=== PATIENT | male | born 1955 | race Caucasian/White ===

== ENCOUNTER 2021-01-29 11:23 | Emergency (ER) | payer MEDICAID, SELFPAY ==
--- NOTE | ~2021-01-29 | CT_ITS ---
EXAMINATION: CT CERVICAL SPINE, CT CHEST, ABDOMEN AND PELVIS WITHOUT CONTRAST. CLINICAL INFORMATION: Confused, fall. COMPARISON: None TECHNIQUE: Axial 3 mm thin and reformatted 2 mm thin sagittal and coronal images of cervical spine were obtained. DLP: 633 mGy-cm. Subsequently axial 5 mm thin and reformatted 3 mm thin sagittal and coronal images of chest, abdomen and pelvis were obtained without contrast. DLP: 2220 mGy-cm. FINDINGS: CERVICAL SPINE: On sagittal reconstructed images there is mild straightening of cervical lordosis. The vertebral heights, alignment and disc heights are normal. The craniovertebral junction and the C1-C2 alignment is normal. There is no visible acute fracture, dislocation or subluxation. The prevertebral and the paravertebral soft tissues are normal. Visualized thyroid lobes, submandibular glands are unremarkable. The prevertebral and paravertebral soft tissues are normal. CHEST: The lungs are well expanded and clear of acute pneumonic process. There is minimal left lower lobe subpleural thickening. The thyroid lobes are symmetrical and normal. The central trachea and the bronchi are widely clear. The heart size and the great vessels are normal caliber. There are coronary artery calcifications present. No pericardial effusion seen. No abnormal mediastinal lymph nodes or mass. There is no pleural effusion or thickening. The axilla and the chest wall are unremarkable. Bone windows reveal no calvarial abnormality. There is mild spondylosis dorsal spine. ABDOMEN AND PELVIS: The liver is normal size density and contour. No focal lesion or intrahepatic ductal dilatation seen. There is minimal dependent gallstones. No wall thickening noted. Visualized spleen, pancreas and bilateral adrenal glands are unremarkable. Both kidneys are normal size, shape and position without radiopaque renal calculi or hydronephrosis. There is no retroperitoneal mass or lymphadenopathy seen. No evidence of hematoma. The abdominal wall appears unremarkable. Scattered stool and gas are seen throughout the entire colon without significant distention. Imaging through the pelvis reveals normal prostate gland. The urinary bladder is nondistended. Bone windows reveal no lytic or sclerotic process. There is mild superior endplate deformity L1 vertebra suspicious of an acute fracture. CT/CT cervical spine wo con IMPRESSION: No acute fracture or dislocation cervical spine. No acute process seen in the chest, abdomen or pelvis. No thoracic rib fracture visualized. There is no pleural effusion or pneumothorax. Suspect acute L1 superior endplate compression fracture. If patient has pain in this region further evaluation with MRI or bone scan can be performed and if positive. With kyphoplasty.
--- NOTE | ~2021-01-29 | CT_ITS ---
EXAMINATION: CT HEAD WITHOUT CONTRAST CLINICAL INFORMATION: Fall, trauma, pain COMPARISON: None TECHNIQUE: Contiguous axial imaging was performed from the skull base to vertex without intravenous administration of contrast. Additional 2-D coronal and sagittal reformatted images are generated on the CT workstation and uploaded to PACS. This CT examination was performed using dose optimization techniques as appropriate, variously including the following: *Automated exposure control *Adjustment of mA and/or kV according to patient size (this includes techniques or standardized protocols for targeted exams where dose is matched to indication/reason for exam; i.e. extremities or head) *Use of iterative reconstruction technique DLP: 785 mGy-cm FINDINGS: There is no intracranial hemorrhage, hematoma, or extra-axial fluid collection. The ventricles are normal in size. There is no hydrocephalus, edema, or mass effect. There is mild nonfocal atrophic changes with prominence of the cortical sulci and fissures cisterns. There is no visible acute territorial infarct or mass lesion. The calvarium appears intact. There is no pneumocephalus or orbital emphysema. The visualized sinuses and middle ears and mastoid air cells show no significant mucosal thickening. There are no air-fluid levels. CT/CT head/brain wo con IMPRESSION: No acute intracranial abnormality.
[2021-01-29 11:47] VITALS: BP 118/68; BP 128/76; PULSE 103; PULSE 86; RESP 18; TEMP 37.1; O2SAT 95; BMI 38.0
--- NOTE | 2021-01-29 12:08 | ECG_ITS ---
Test Reason : FALL Blood Pressure : / mmHG Vent. Rate : 090 BPM Atrial Rate : 090 BPM P-R Int : 162 ms QRS Dur : 084 ms QT Int : 362 ms P-R-T Axes : 054 075 060 degrees QTc Int : 442 ms Normal sinus rhythm Normal ECG No previous ECGs available Referred By: Trent Pacheco Electronically Signed By:MIKY CRESPO MD
--- NOTE | 2021-01-29 12:42 | ED_ITS ---
HPI - General Adult General Chief complaint: Fall Stated complaint: FALL W/R HIP PAIN FROM [facility] Time Seen by Provider: 01/29/21 14:45 Source: patient Mode of arrival: ambulatory Limitations: no limitations History of Present Illness HPI narrative: Patient presents to ED for fall and right hip pain. Patient was given medications at 09:00 o'clock in the bed. And then after 10:00 they found patient back face in the bed and patient is sitting on the ground. EMS report states patient has been more confused the past 2 days. Patient does not ambulate. Patient states he was trying to walk which cause in to slide down to the ground. Patient is O2 dependent. Patient at baseline does not ambulate. Related Data Previous Rx's Medication Instructions Recorded naproxen 500 mg PO BID PRN #20 tab 01/29/21 Allergies Allergy/AdvReac Type Severity Reaction Status Date / Time Penicillins [PCN] Allergy Unknown Verified 01/29/21 11:55 Review of Systems Review of Systems: Yes all other systems are reviewed and are negative Constitutional: Constitutional: Reports as per HPI and Reports no additional constitutional complaints Eyes: Eyes: Reports as per HPI and Reports no additional eye complaints ENT: Reports system reviewed and no additional complaints, except as documented and Reports as per HPI Cardiovascular: Cardiovascular: Reports as per HPI and Reports no additional cardiovascular complaints Respiratory: Respiratory: Reports as per HPI and Reports no additional respiratory complaints Gastrointestinal: Gastrointestinal: Reports as per HPI and Reports no additional gastrointestinal complaints Genitourinary: Genitourinary: Reports no additional male genitourinary complaints and Reports as per HPI Musculoskeletal: Musculoskeletal: Reports no additional musculoskeletal complaints and Reports as per HPI Comments: Right hip pain Neurologic: Reports system reviewed and no additional complaints, except as documented and Reports as per HPI Comments: More confused the past 2 days [facility] Past Medical History Medical History (Updated 01/29/21 @ 19:02 by KOLE Beckwith) Alcohol dependence in remission Anemia Antisocial personality disorder Blind right eye Cataract, right eye CHF (congestive heart failure) Cocaine abuse in remission COPD (chronic obstructive pulmonary disease) GERD (gastroesophageal reflux disease) HTN (hypertension) Hyperlipidemia Psoriasis Pulmonary fibrosis Vitamin D deficiency Social History Social History Advance Directives: Yes Advance Directives Information Provided: No Advance Directives on File: No Physical Exam Vital Signs: Vital Signs: Last Vital Signs Temp 98.0 F 06/10/21 20:01 Pulse 80 01/29/21 20:01 Resp 17 01/29/21 20:01 BP 105/75 01/29/21 20:01 Pulse Ox 98 01/29/21 20:01 Oxygen Flow Rate 2 01/29/21 11:47 Body Mass Index 38.0 Const: General: cooperative, healthy appearing, comfortable, no acute distress, well developed, alert and awake Orientation/consciousness: patient oriented x3 HENMT: Head: Yes normal to inspection, Yes No palpable skull fracture present, Yes normocephalic, Yes atraumatic, No abrasion, No Acrocyanosis present, No Alston's sign, No contusion, No cranial bruits, No hematoma, No laceration, No occipital foramen tenderness, No palpable skull fracture, No raccoon eyes, No scalp lesion, No scalp tenderness, No Temporal artery tenderness present and No periorbital ecchymosis Eyes: General: appearance normal, both eyes and all related structures Neck: Neck: Yes normal visual inspection, Yes full ROM, Yes no lymphadenopathy, Yes no meningeal signs, Yes trachea midline, Yes supple and No tender Chest: Chest palpation & inspection: normal inspection of the chest and normal palpation of entire chest wall Resp: Effort & Inspection: normal respiratory effort and able to speak in complete sentences Auscultation: clear to auscultation bilaterally Cardio: Jugular venous distension: no JVD Heart sounds: S1 normal heart sound present and S2 normal heart sound present GI: Inspection: Yes normal to inspection and No abdominal wall ecchymosis Palpation (GI): Soft to palpation, not firm, nontender, no guarding and not rigid : General: No CVA tenderness and Yes no CVA tenderness Back/Spine/Pelvis: Back: no CVA tenderness, No CVA tenderness and No back tenderness Skin: General skin exam: no rashes or lesions noted and elasticity normal Neuro: Other: Patient is alert oriented x3. Patient removed his extremities. General: patient oriented x3, no meningeal signs and CN's II-XI intact bilaterally Cranial nerves: Yes CN's II-XII intact bilaterally Extrem: Other: Positive for right hip tenderness negative for internal/external rotation General: Yes normal to inspection and Yes full ROM Course Course Course Narrative: Patient have medical workup and imaging to rule out any fractures. Reevaluation(s) Reevaluation #1: Patient is not confused or altered. Patient is alert oriented x3. First troponin is negative. EKG negative for STEMI. Patient's elevated white blood cell count, but UA is normal. Vital signs are stable. Awaiting for imaging results to make sure there is no bleed fracture or any source of infection. Reevaluation #2: Head CT came back normal. Chest CT negative for any pneumonia. Cervical spine normal. Abdominal CT scan shows L1 compression fracture. Awaiting for repeat troponin and ammonia levels. Reevaluation #3: Troponin ammonia levels normal. Patient is sleeping in bed comfortably. Will send back to facility. No intervention needed for compression fracture. Medical Decision Making MDM Narrative Medical decision making narrative: Lumbar compression fracture Lab Data Result diagrams: 01/29/21 12:54 01/29/21 14:00 Labs: Lab Results 01/29/21 01/29/21 01/29/21 Range/Units 12:54 12:54 12:54 WBC 15.0 H (4.8-10.8) X10*3/uL RBC 5.46 (4.60-5.80) X10*6/uL Hgb 13.8 L (14.0-18.0) g/dl Hct 43.9 (42-52) % MCV 80.4 (80-98) fL MCH 25.3 L (27.0-33.0) pg MCHC 31.4 (31.0-36.0) g/dl RDW 15.3 (11.0-16.0) % Plt Count 262 (160-400) X10*3/uL MPV 10.7 (9.4-12.4) fL Immature Gran % (Auto) 0.7 H (0.0-0.4) % Neut % (Auto) 68.2 (45-73) % Lymph % (Auto) 16.1 L (20-40) % Stewart % (Auto) 13.8 H (2-11) % Eos % (Auto) 0.9 (0-4) % Baso % (Auto) 0.3 (0-2) % Lymph # (Auto) 2.4 (1.2-4.9) X10*3/uL Stewart # (Auto) 2.1 H (0.1-1.2) X10*3/uL Eos # (Auto) 0.1 (0.0-0.4) X10*3/uL Baso # (Auto) 0.1 (0.0-0.2) X10*3/uL Abs Immat Gran (auto) 0.10 H (0.00-0.03) X10*3/uL Absolute Neuts (auto) 10.3 H (2.0-8.3) X10*3/uL Absolute Nucleated RBC 0.000 (0.0-0.012) X10*3/uL Nucleated RBC % (auto) 0.0 (0.0-0.2) /100WBC Smear Tech's Comments VERIFIED PT 14.0 H (10.8-13.0) SEC INR 1.2 H (0.9-1.1) APTT 31.3 (24.1-38.0) SEC Sodium (135-145) mmol/L Potassium (3.3-5.1) mmol/L Chloride (96-108) mmol/L Carbon Dioxide (22-29) mmol/L Anion Gap (12-20) BUN (9-16) mg/dL Creatinine (0.5-1.4) mg/dL Estim Creat Clear Calc Estimated GFR Random Glucose (60-115) mg/dL Calcium (8.4-10.2) mg/dL Total Bilirubin (0.0-1.0) mg/dL AST (5-37) U/L ALT (0-40) U/L Alkaline Phosphatase (39-117) U/L Ammonia (13-55) umol/L Total Creatine Kinase (38-174) U/L Troponin I High Sens 11.4 (<3.5-35.0) ng/L Total Protein (6.5-8.0) g/dL Albumin (3.5-5.0) g/dL Urine Color Urine Appearance Urine pH (5.0-8.0) Ur Specific Boaz (1.005-1.025) Urine Protein (NEG-TRACE) MG/DL Urine Glucose (UA) (NEG) MG/DL Urine Ketones (NEG) MG/DL Urine Blood (NEG) Urine Nitrite (NEG) Ur Leukocyte Esterase (NEG) Urine RBC (0) /HPF Urine WBC (0-4) /HPF Ur Squamous Epith Cells /LPF Urine Bacteria /LPF Urine Mucus /LPF 01/29/21 01/29/21 01/29/21 Range/Units 14:00 14:00 17:01 WBC (4.8-10.8) X10*3/uL RBC (4.60-5.80) X10*6/uL Hgb (14.0-18.0) g/dl Hct (42-52) % MCV (80-98) fL MCH (27.0-33.0) pg MCHC (31.0-36.0) g/dl RDW (11.0-16.0) % Plt Count (160-400) X10*3/uL MPV (9.4-12.4) fL Immature Gran % (Auto) (0.0-0.4) % Neut % (Auto) (45-73) % Lymph % (Auto) (20-40) % Stewart % (Auto) (2-11) % Eos % (Auto) (0-4) % Baso % (Auto) (0-2) % Lymph # (Auto) (1.2-4.9) X10*3/uL Stewart # (Auto) (0.1-1.2) X10*3/uL Eos # (Auto) (0.0-0.4) X10*3/uL Baso # (Auto) (0.0-0.2) X10*3/uL Abs Immat Gran (auto) (0.00-0.03) X10*3/uL Absolute Neuts (auto) (2.0-8.3) X10*3/uL Absolute Nucleated RBC (0.0-0.012) X10*3/uL Nucleated RBC % (auto) (0.0-0.2) /100WBC Smear Tech's Comments PT (10.8-13.0) SEC INR (0.9-1.1) APTT (24.1-38.0) SEC Sodium 143 (135-145) mmol/L Potassium 3.8 (3.3-5.1) mmol/L Chloride 112 H (96-108) mmol/L Carbon Dioxide 22 (22-29) mmol/L Anion Gap 13 (12-20) BUN 22 H (9-16) mg/dL Creatinine 0.59 (0.5-1.4) mg/dL Estim Creat Clear Calc 137.3 Estimated GFR > 60 Random Glucose 80 (60-115) mg/dL Calcium 7.5 L (8.4-10.2) mg/dL Total Bilirubin 0.2 (0.0-1.0) mg/dL AST 29 (5-37) U/L ALT 6 (0-40) U/L Alkaline Phosphatase 52 (39-117) U/L Ammonia 51 (13-55) umol/L Total Creatine Kinase 510 H (38-174) U/L Troponin I High Sens (<3.5-35.0) ng/L Total Protein 5.6 L (6.5-8.0) g/dL Albumin 2.5 L (3.5-5.0) g/dL Urine Color YELLOW Urine Appearance CLEAR Urine pH 7.0 (5.0-8.0) Ur Specific Boaz 1.020 (1.005-1.025) Urine Protein 2+ H (NEG-TRACE) MG/DL Urine Glucose (UA) NEG (NEG) MG/DL Urine Ketones 15 (NEG) MG/DL Urine Blood NEG (NEG) Urine Nitrite NEG (NEG) Ur Leukocyte Esterase NEG (NEG) Urine RBC 0-2 (0) /HPF Urine WBC 0-2 (0-4) /HPF Ur Squamous Epith Cells TRACE /LPF Urine Bacteria NONE /LPF Urine Mucus 1+ /LPF 01/29/21 Range/Units 17:01 WBC (4.8-10.8) X10*3/uL RBC (4.60-5.80) X10*6/uL Hgb (14.0-18.0) g/dl Hct (42-52) % MCV (80-98) fL MCH (27.0-33.0) pg MCHC (31.0-36.0) g/dl RDW (11.0-16.0) % Plt Count (160-400) X10*3/uL MPV (9.4-12.4) fL Immature Gran % (Auto) (0.0-0.4) % Neut % (Auto) (45-73) % Lymph % (Auto) (20-40) % Stewart % (Auto) (2-11) % Eos % (Auto) (0-4) % Baso % (Auto) (0-2) % Lymph # (Auto) (1.2-4.9) X10*3/uL Stewart # (Auto) (0.1-1.2) X10*3/uL Eos # (Auto) (0.0-0.4) X10*3/uL Baso # (Auto) (0.0-0.2) X10*3/uL Abs Immat Gran (auto) (0.00-0.03) X10*3/uL Absolute Neuts (auto) (2.0-8.3) X10*3/uL Absolute Nucleated RBC (0.0-0.012) X10*3/uL Nucleated RBC % (auto) (0.0-0.2) /100WBC Smear Tech's Comments PT (10.8-13.0) SEC INR (0.9-1.1) APTT (24.1-38.0) SEC Sodium (135-145) mmol/L Potassium (3.3-5.1) mmol/L Chloride (96-108) mmol/L Carbon Dioxide (22-29) mmol/L Anion Gap (12-20) BUN (9-16) mg/dL Creatinine (0.5-1.4) mg/dL Estim Creat Clear Calc Estimated GFR Random Glucose (60-115) mg/dL Calcium (8.4-10.2) mg/dL Total Bilirubin (0.0-1.0) mg/dL AST (5-37) U/L ALT (0-40) U/L Alkaline Phosphatase (39-117) U/L Ammonia (13-55) umol/L Total Creatine Kinase (38-174) U/L Troponin I High Sens 13.3 (<3.5-35.0) ng/L Total Protein (6.5-8.0) g/dL Albumin (3.5-5.0) g/dL Urine Color Urine Appearance Urine pH (5.0-8.0) Ur Specific Boaz (1.005-1.025) Urine Protein (NEG-TRACE) MG/DL Urine Glucose (UA) (NEG) MG/DL Urine Ketones (NEG) MG/DL Urine Blood (NEG) Urine Nitrite (NEG) Ur Leukocyte Esterase (NEG) Urine RBC (0) /HPF Urine WBC (0-4) /HPF Ur Squamous Epith Cells /LPF Urine Bacteria /LPF Urine Mucus /LPF ECG Data Interpretation: . Normal EKG. Ventricular rate 90. Pr interval 162. QRS 84. QTC 442. Negative STEMI Discharge Plan Discharge Clinical Impression: Closed compression fracture of lumbar vertebra Patient Disposition: Home, Self-Care Instructions: Vertebral Compression Fracture (ED) Additional Instructions: Return to the ED for worsening back pain, altered mental status, dizziness, nausea, vomiting, chest pain, shortness of breath, dysuria, hematuria, or any other concerning symptoms. Head CT, chest CT, cervical spine CT came back normal. Troponins were negative. EKG negative for STEMI. Urinalysis was normal. Abdominal CT scan shows L1 vertebral compression fracture. Prescriptions: New naproxen 500 mg tablet 500 mg PO BID PRN (Reason: pain) Qty: 20 RF: 0 Referrals: Erinn Keane MD [Primary Care Provider] - 2 days (L1 compression vertebral fracture) Print Language: [place] Zeal[place]
--- NOTE | 2021-01-29 12:55 | PC.NURSE ---
Pt alert, oriented to person. BUE weakness at baseline. Pt found on floor with back to bed at [facility]. Fall was unwitnessed. Pt states he was trying to walk, he states he does not know if he is able to walk. Per report from [facility] Pt more confused than baseline. IV line established, labs obtained. Pt denies pain at this time, no apparent distress, pt resting quietly.
[2021-01-29 12:59] LABS: Basophils Absolute Auto 0.1 X10*3/uL (0.0-0.2); Basophils Percent Auto 0.3 % (0-2); Eosinophils Absolute Auto 0.1 X10*3/uL (0.0-0.4); Eosinophils Percent Auto 0.9 % (0-4); Hematocrit 43.9 % (42-52); Hemoglobin 13.8 g/dl (14.0-18.0); Imm Gran Pct Auto 0.7 % (0.0-0.4); Lymphocytes Absolute Auto 2.4 X10*3/uL (1.2-4.9); Lymphocytes Percent Auto 16.1 % (20-40); MANUAL DIFF FLAG SCAN; Mean Corpuscular HGB Conc 31.4 g/dl (31.0-36.0); Mean Corpuscular Hemoglobin 25.3 pg (27.0-33.0); Mean Corpuscular Volume 80.4 fL (80-98); Mean Platelet Volume 10.7 fL (9.4-12.4); Monocytes Absolute Auto 2.1 X10*3/uL (0.1-1.2); Monocytes Percent Auto 13.8 % (2-11); Neutrophils Absolute Auto 10.3 X10*3/uL (2.0-8.3); Neutrophils Percent Auto 68.2 % (45-73); Platelet Count 262 X10*3/uL (160-400); Red Blood Count 5.46 X10*6/uL (4.60-5.80); Red Cell Distribution Width 15.3 % (11.0-16.0); SCAN SMEAR FLAG 1
[2021-01-29 13:07] LABS: INTERNATIONAL NORM RATIO 1.2 (0.9-1.1)
[2021-01-29 13:10] LABS: Partial Thromboplastin Time 31.3 SEC (24.1-38.0)
[2021-01-29 13:22] LABS: SLIDE REVIEW VERIFIED
[2021-01-29 13:40] LABS: Troponin-I High Sensitivity 11.4 ng/L (<3.5-35.0)
[2021-01-29] MEDS: 0.9 % Sodium Chloride 1,000 ML 999 ML IV (13:40)
[2021-01-29 14:14] LABS: Glucose Urine UA NEG (NEG); Leukocyte Esterase Urine NEG (NEG); Nitrite Urine NEG (NEG); Urine Blood NEG (NEG); Urine Ketones 15 MG/DL (NEG); Urine Protein 2+ MG/DL (NEG-TRACE)
[2021-01-29 14:16] LABS: Appearance Urine CLEAR; Color Urine YELLOW
[2021-01-29 14:31] LABS: Mucus Urine 1+ /LPF; RBC Urine 0-2 /HPF (0); Squamous Epithelial Cell Urine TRACE /LPF; WBC Urine 0-2 /HPF (0-4)
[2021-01-29 14:35] LABS: Alanine Aminotransferase 6 U/L (0-40); Albumin Level 2.5 g/dL (3.5-5.0); Alkaline Phosphatase 52 U/L (39-117); Anion Gap 13 (12-20); Aspartate Amino Transferase 29 U/L (5-37); Bilirubin Total 0.2 mg/dL (0.0-1.0); Blood Urea Nitrogen 22 mg/dL (9-16); Calcium 7.5 mg/dL (8.4-10.2); Carbon Dioxide 22 mmol/L (22-29); Chloride 112 mmol/L (96-108); Creatinine Clr Calc Pharmacy 137.3; Estimated Glomerular Filt Rate > 60; Glucose Random 80 mg/dL (60-115); Potassium 3.8 mmol/L (3.3-5.1); Sodium 143 mmol/L (135-145); Total Protein 5.6 g/dL (6.5-8.0)
[2021-01-29 14:43] VITALS: BP 110/68; PULSE 82; RESP 14; O2SAT 99
--- NOTE | 2021-01-29 14:50 | PC.NURSE ---
Pt sleeping on and off since arriving to ED. Drowsy, falls asleep easy but easily aroused. Pt's skin color pale and warm. No apparent distress noted, resting quietly.
[2021-01-29 16:25] VITALS: BP 105/64; PULSE 78; RESP 24; TEMP 36.8; O2SAT 96
[2021-01-29 17:21] LABS: Ammonia 51 umol/L (13-55)
[2021-01-29 17:34] LABS: Troponin-I High Sensitivity 13.3 ng/L (<3.5-35.0)
--- NOTE | 2021-01-29 18:48 | PC.NURSE ---
Report given to JANAK Valenzuela nsg lead burner supervisor at [facility].
[2021-01-29 20:01] VITALS: BP 105/75; PULSE 80; RESP 17; TEMP 36.7; O2SAT 98
== END 2021-01-29 20:35 | disposition home or self-care (01) ==
PROVIDERS: Physician Assistant; Emergency Provider Emergency Medicine; PCP Internal Medicine
DX: S32.010A Wedge compression fracture of first lumbar vertebra, initial encounter for closed fracture (principal); W06.XXXA Fall from bed, initial encounter; Y93.89 Activity, other specified; Y92.122 Bedroom in nursing home as the place of occurrence of the external cause; Y99.9 Unspecified external cause status; I11.0 Hypertensive heart disease with heart failure; I50.9 Heart failure, unspecified
CPT/HCPCS: 36415; 51701; 70450; 71250; 72125; 74176; 80053; 81001; 82140; 82550; 84484; 85025; 85610; 85730; 93005; 96360; 99285

== ENCOUNTER 2021-02-03 13:22 | Inpatient (IN) | payer MEDICAID, SELFPAY ==
[2021-02-03] VITALS (7 sets, daily range): BP systolic 119–140; BP diastolic 69–79; PULSE 77–103; RESP 16–25; TEMP 36.2–36.7; O2SAT 90–97; BMI 33.8
--- NOTE | ~2021-02-03 | XR_ITS ---
EXAMINATION: XR CHEST CLINICAL INFORMATION: Lethargy, altered mental status COMPARISON: None TECHNIQUE: Frontal view of the chest was obtained. FINDINGS: The lungs are hypoexpanded but clear. The heart size and pulmonary vascularity is normal. There is mild spondylosis of dorsal spine. No lytic process. XR/XR chest 1V IMPRESSION: Hypoexpanded lungs with no acute process.
--- NOTE | ~2021-02-03 | CT_ITS ---
EXAMINATION: CT HEAD WITHOUT CONTRAST CLINICAL INFORMATION: Altered mental status. Poorly responsive. COMPARISON: None TECHNIQUE: Contiguous axial imaging was performed from the skull base to vertex without intravenous administration of contrast. This CT examination was performed using dose optimization techniques as appropriate, variously including the following: *Automated exposure control *Adjustment of mA and/or kV according to patient size (this includes techniques or standardized protocols for targeted exams where dose is matched to indication/reason for exam; i.e. extremities or head) *Use of iterative reconstruction technique DLP: 779 mGy-cm FINDINGS: There is no evidence of acute intracranial hemorrhage or territorial infarction. No abnormal mass effect or midline shift is seen. [place] to white matter differentiation is well preserved. No extra-axial fluid collections are identified. The lateral ventricles are symmetrical in size and configuration but mildly enlarged. The [place] to white matter differentiation is maintained normal. Bone windows reveal no calvarial abnormality. The osseous structures and soft tissues are normal. The mastoid air cells and visualized portions of the paranasal sinuses are well aerated. CT/CT head/brain wo con IMPRESSION: No acute intracranial process seen. Age-related cerebral volume loss.
--- NOTE | 2021-02-03 13:30 | ED.GENADULT ---
HPI - General Adult General Chief complaint: Altered Mental Status <KOLE Thomas - Last Filed: 02/03/21 16:36> Stated complaint: HYPOGLYCEMIA <KOLE Thomas Last Filed: 02/03/21 16:36> Time Seen by Provider: 02/03/21 13:24 <KOLE Thomas Last Filed: 02/03/21 16:36> Source: patient and EMS <KOLE Thomas Last Filed: 02/03/21 16:36> Mode of arrival: EMS <KOLE Thomas Last Filed: 02/03/21 16:36> Limitations: altered mental status <KOLE Thomas Last Filed: 02/03/21 16:36> History of Present Illness HPI narrative: 65 y/o male with history of chronic hypoxic respiratory failure 2/2 Pulmonary Fibrosis & COPD, bed bound status, DM2 on Lantus, CHF, HTN, HLD, remote history of ETOH and cocaine abuse who presents to the ED from SNF via EMS with altered mental status. He was recently seen here on 01/29 for a fall -= diagnosed with L4 compression fracture and discharged with Naproxen. Per EMS report glucose was noted to be 50 on arrival. He was lethargic. He was given Glucagon with improvement in mental status. Sugar improved to 73. He was reportedly prescribed oxycodone as well that was stopped yesterday. He last got his 56 units of Lantus last night on 02/02 per OCT. On arrival to the ER patient is lethargic, protecting his airway, groans to sternal rub. Opens eyes briefly. <KOLE Thomas - Last Filed: 02/03/21 16:36> MD complaint: altered mental status <KOLE Thomas Last Filed: 02/03/21 16:36> Onset (ago): day(s) <KOLE Thomas Last Filed: 02/03/21 16:36> Severity: severe <KOLE Thomas Last Filed: 02/03/21 16:36> Treatments prior to arrival: other (glucagon) <KOLE Thomas Last Filed: 02/03/21 16:36> Related Data Home medications: Home Medications Medication Instructions Recorded Confirmed acetaminophen [Tylenol] 650 mg PO Q4H PRN 02/03/21 02/03/21 alum-mag hydroxide-simeth [Maalox] 30 ml PO Q6H PRN 02/03/21 02/03/21 ascorbic acid (vitamin C) 500 mg PO DAILY 02/03/21 02/03/21 aspirin [Aspirin Low Dose] 81 mg PO DAILY 02/03/21 02/03/21 atorvastatin 40 mg PO BEDTIME 02/03/21 02/03/21 benztropine 0.5 mg PO BID 02/03/21 02/03/21 betamethasone dipropionate 1 appl TOPICAL BID 02/03/21 02/03/21 bisacodyl 5 mg PO Q24H PRN 02/03/21 02/03/21 bisacodyl 10 mg GA DAILY PRN 02/03/21 02/03/21 divalproex [Depakote] 1,000 mg PO DAILY 02/03/21 02/03/21 divalproex [Depakote] 1,500 mg PO BEDTIME 02/03/21 02/03/21 docusate sodium [Colace] 100 mg PO BID 02/03/21 02/03/21 ferrous sulfate [Feosol] 325 mg PO DAILY 02/03/21 02/03/21 furosemide [Lasix] 40 mg PO DAILY 02/03/21 02/03/21 insulin glargine [Lantus U-100 56 unit SUBCUT BEDTIME 02/03/21 02/03/21 Insulin] magnesium hydroxide [Milk of 30 ml PO DAILY PRN 02/03/21 02/03/21 Magnesia] magnesium oxide 400 mg PO TID 02/03/21 02/03/21 metformin 1,000 mg PO BID 02/03/21 02/03/21 metoprolol tartrate 25 mg PO BID 02/03/21 02/03/21 multivitamin 1 tab PO DAILY 02/03/21 02/03/21 olanzapine 10 mg PO BEDTIME 02/03/21 02/03/21 polyethylene glycol 3350 [Miralax] 17 g PO DAILY 02/03/21 02/03/21 tiotropium bromide [Spiriva 2 puff INHALATION DAILY 02/03/21 02/03/21 Respimat] <KOLE Thomas - Last Filed: 02/03/21 16:36> Allergies/adverse reactions: Allergies Allergy/AdvReac Type Severity Reaction Status Date / Time Penicillins [PCN] Allergy Unknown Verified 01/29/21 11:55 <KOLE Thomas - Last Filed: 02/03/21 16:36> Review of Systems Review of Systems: Yes Unobtainable due to mental status <KOLE Thomas - Last Filed: 02/03/21 16:36> [facility] Past Medical History Medical History: Medical History (Updated 02/03/21 @ 16:35 by KOLE Thomas) Alcohol dependence in remission Anemia Antisocial personality disorder Blind right eye Cataract, right eye CHF (congestive heart failure) Cocaine abuse in remission COPD (chronic obstructive pulmonary disease) GERD (gastroesophageal reflux disease) HTN (hypertension) Hyperlipidemia Psoriasis Pulmonary fibrosis Vitamin D deficiency <KOLE Thomas - Last Filed: 02/03/21 16:36> Social History Social History: Social History Alcohol intake: unknown Patient Tobacco Use Status: Tobacco use Unknown Use of substances other than those prescribed or required for medical reasons: Unable to respond Advance Directives: No Advance Directives Information Provided: No <KOLE Thomas - Last Filed: 02/03/21 16:36> Physical Exam Vital Signs: Vital Signs: Last Vital Signs Temp 97.9 F 02/03/21 13:45 Pulse 77 02/03/21 15:05 Resp 20 02/03/21 14:59 BP 124/72 02/03/21 15:05 Pulse Ox 91 L 02/03/21 15:05 Body Mass Index 33.8 Appearance: Lethargic, elderly male laying in bed, appears older than stated age. Eyes open, oriented x1 Eyes: Pupils equal, round and reactive to light. ENT: Pharynx with dry mucus membranes. Neck: Normal inspection. Neck supple. CVS: Normal heart rate and rhythm. Pulses normal. Respiratory: No respiratory distress. Breath sounds diminished throughout without rales, wheezes or rhonchi Abdomen: Obese, soft and non-tender. +BS x4. Depends brief is dry. Skin: Skin warm and dry. Normal skin color. Normal skin turgor. No rashes. Extremities: 2+ lower extremity edema. Neuro: Oriented X 1. Lethargic, briefly follows commands, moves all extremities. symmetrical and equal weakness throughout. <KOLE Thomas - Last Filed: 02/03/21 16:36> Vital Signs: Last Vital Signs Temp 97.9 F 02/03/21 13:45 Pulse 77 02/03/21 15:05 Resp 20 02/03/21 14:59 BP 124/72 02/03/21 15:05 Pulse Ox 91 L 02/03/21 15:05 Body Mass Index 33.8 <Devyn Cardoza MD - Last Filed: 02/03/21 14:47> Course Course Course Narrative: 65 y/o male with multiple comorbidities including chronic hypoxic respiratory failure, COPD, pulmonary fibrosis, CHF, DM on insulin, bedbound status who presents from SNF with AMS found to be hypoglycemic to 50. Given glucagon with improvement in sugar but not mental status. EMS reported improvement in mental status however on arrival he is still lethargic and unable to provide any meaningful history. Glucose [address] on arrival. Will check CT head, ABG, CXR, labs and cultures. He is vitally stable on arrival with no fevers. <KOLE Thomas - Last Filed: 02/03/21 16:36> Reevaluation(s) Reevaluation #1: 14:50 - Repeat glucose was 66. D50 ordered. WBC 18.6K without a source identified at this time. CXR shows no evidence of pneumonia. UA is pending. He had a WBC 15K 5 days ago. No SIRS on his VS. Hold off on empiric antibiotics at this time. Lactic acid is normal. No evidence of sepsis. He was just panscanned on 01/29. <KOLE Thomas - Last Filed: 02/03/21 16:36> I have discussed the case and management with the JILLIAN <Devyn Cardoza MD - Last Filed: 02/03/21 14:47> Time: 14:47 <Devyn Cardoza MD - Last Filed: 02/03/21 14:47> Reevaluation #2: 4:25 - UA is negative for infection. patient continues to be lethargic. No response to IV Narcan. He briefly arouses and tries to speak in short sentences then falls back asleep quickly. Documented as AAO X3 on prior visit. Will start on D5 1/2 NS for glucose support and admit for further management. Dr. Mc TT for admission. <KOLE Thomas - Last Filed: 02/03/21 16:36> Medical Decision Making Lab Data Result diagrams: : 02/03/21 14:13 02/03/21 14:13 <KOLE Thomas - Last Filed: 02/03/21 16:36> Labs: Lab Results 02/03/21 02/03/21 02/03/21 Range/Units 13:57 14:13 14:13 WBC 18.6 H (4.8-10.8) X10*3/uL RBC 5.58 (4.60-5.80) X10*6/uL Hgb 14.0 (14.0-18.0) g/dl Hct 44.3 (42-52) % MCV 79.4 L (80-98) fL MCH 25.1 L (27.0-33.0) pg MCHC 31.6 (31.0-36.0) g/dl RDW 14.9 (11.0-16.0) % Plt Count 314 (160-400) X10*3/uL MPV 10.3 (9.4-12.4) fL Immature Gran % (Auto) 0.6 H (0.0-0.4) % Neut % (Auto) 73.9 H (45-73) % Lymph % (Auto) 12.7 L (20-40) % Robertson % (Auto) 11.2 H (2-11) % Eos % (Auto) 1.3 (0-4) % Baso % (Auto) 0.3 (0-2) % Lymph # (Auto) 2.4 (1.2-4.9) X10*3/uL Robertson # (Auto) 2.1 H (0.1-1.2) X10*3/uL Eos # (Auto) 0.2 (0.0-0.4) X10*3/uL Baso # (Auto) 0.1 (0.0-0.2) X10*3/uL Abs Immat Gran (auto) 0.11 H (0.00-0.03) X10*3/uL Absolute Neuts (auto) 13.8 H (2.0-8.3) X10*3/uL Absolute Nucleated RBC 0.000 (0.0-0.012) X10*3/uL Nucleated RBC % (auto) 0.0 (0.0-0.2) /100WBC Smear Tech's Comments VERIFIED O2 Saturation 90.0 % ABG pH at Pt Temp 7.46 H (7.35-7.45) ABG pCO2 at Pt Temp 35 (32-45) mmHg ABG pO2 at Pt Temp 65 L (83-108) mmHg ABG HCO3 25 (22-26) mmol/L ABG Base Excess (Actual) 2.5 mmol/L Sodium 140 (135-145) mmol/L Potassium 4.2 (3.3-5.1) mmol/L Chloride 103 (96-108) mmol/L Carbon Dioxide 28 (22-29) mmol/L Anion Gap 13 (12-20) BUN 26 H (9-16) mg/dL Creatinine 0.76 (0.5-1.4) mg/dL Estim Creat Clear Calc 121.8 Estimated GFR > 60 POC Glucose (60-115) mg/dL Random Glucose 88 (60-115) mg/dL Lactic Acid (0.5-2.0) mmol/L Calcium 9.2 D (8.4-10.2) mg/dL Magnesium 2.0 (1.6-2.6) mg/dL Total Bilirubin 0.4 (0.0-1.0) mg/dL Direct Bilirubin 0.2 (0.0-0.5) mg/dL AST 42 H D (5-37) U/L ALT 18 (0-40) U/L Alkaline Phosphatase 77 D (39-117) U/L Troponin I High Sens (<3.5-35.0) ng/L B-Natriuretic Peptide (<100) pg/mL Total Protein 7.3 D (6.5-8.0) g/dL Albumin 3.5 D (3.5-5.0) g/dL Urine Color Urine Appearance Urine pH (5.0-8.0) Ur Specific [place] (1.005-1.025) Urine Protein (NEG-TRACE) MG/DL Urine Glucose (UA) (NEG) MG/DL Urine Ketones (NEG) MG/DL Urine Blood (NEG) Urine Nitrite (NEG) Ur Leukocyte Esterase (NEG) Urine RBC (0) /HPF Urine WBC (0-4) /HPF Ur Squamous Epith Cells /LPF Urine Opiates Screen (Not Detect) Ur Barbiturates Screen (Not Detect) Ur Phencyclidine Scrn (Not Detect) Ur Amphetamines Screen (Not Detect) U Benzodiazepines Scrn (Not Detect) Urine Cocaine Screen (Not Detect) U Marijuana (THC) Screen (Not Detect) COVID-19 (JULIO) (Negative) COVID-19 Clin Com 02/03/21 02/03/21 02/03/21 Range/Units 14:13 14:13 14:13 WBC (4.8-10.8) X10*3/uL RBC (4.60-5.80) X10*6/uL Hgb (14.0-18.0) g/dl Hct (42-52) % MCV (80-98) fL MCH (27.0-33.0) pg MCHC (31.0-36.0) g/dl RDW (11.0-16.0) % Plt Count (160-400) X10*3/uL MPV (9.4-12.4) fL Immature Gran % (Auto) (0.0-0.4) % Neut % (Auto) (45-73) % Lymph % (Auto) (20-40) % Robertson % (Auto) (2-11) % Eos % (Auto) (0-4) % Baso % (Auto) (0-2) % Lymph # (Auto) (1.2-4.9) X10*3/uL Robertson # (Auto) (0.1-1.2) X10*3/uL Eos # (Auto) (0.0-0.4) X10*3/uL Baso # (Auto) (0.0-0.2) X10*3/uL Abs Immat Gran (auto) (0.00-0.03) X10*3/uL Absolute Neuts (auto) (2.0-8.3) X10*3/uL Absolute Nucleated RBC (0.0-0.012) X10*3/uL Nucleated RBC % (auto) (0.0-0.2) /100WBC Smear Tech's Comments O2 Saturation % ABG pH at Pt Temp (7.35-7.45) ABG pCO2 at Pt Temp (32-45) mmHg ABG pO2 at Pt Temp (83-108) mmHg ABG HCO3 (22-26) mmol/L ABG Base Excess (Actual) mmol/L Sodium (135-145) mmol/L Potassium (3.3-5.1) mmol/L Chloride (96-108) mmol/L Carbon Dioxide (22-29) mmol/L Anion Gap (12-20) BUN (9-16) mg/dL Creatinine (0.5-1.4) mg/dL Estim Creat Clear Calc Estimated GFR POC Glucose (60-115) mg/dL Random Glucose (60-115) mg/dL Lactic Acid 1.8 (0.5-2.0) mmol/L Calcium (8.4-10.2) mg/dL Magnesium (1.6-2.6) mg/dL Total Bilirubin (0.0-1.0) mg/dL Direct Bilirubin (0.0-0.5) mg/dL AST (5-37) U/L ALT (0-40) U/L Alkaline Phosphatase (39-117) U/L Troponin I High Sens 8.5 (<3.5-35.0) ng/L B-Natriuretic Peptide 32 (<100) pg/mL Total Protein (6.5-8.0) g/dL Albumin (3.5-5.0) g/dL Urine Color Urine Appearance Urine pH (5.0-8.0) Ur Specific [place] (1.005-1.025) Urine Protein (NEG-TRACE) MG/DL Urine Glucose (UA) (NEG) MG/DL Urine Ketones (NEG) MG/DL Urine Blood (NEG) Urine Nitrite (NEG) Ur Leukocyte Esterase (NEG) Urine RBC (0) /HPF Urine WBC (0-4) /HPF Ur Squamous Epith Cells /LPF Urine Opiates Screen (Not Detect) Ur Barbiturates Screen (Not Detect) Ur Phencyclidine Scrn (Not Detect) Ur Amphetamines Screen (Not Detect) U Benzodiazepines Scrn (Not Detect) Urine Cocaine Screen (Not Detect) U Marijuana (THC) Screen (Not Detect) COVID-19 (JULIO) Negative (Negative) COVID-19 Clin Com See Note 02/03/21 02/03/21 02/03/21 Range/Units 15:12 15:33 15:33 WBC (4.8-10.8) X10*3/uL RBC (4.60-5.80) X10*6/uL Hgb (14.0-18.0) g/dl Hct (42-52) % MCV (80-98) fL MCH (27.0-33.0) pg MCHC (31.0-36.0) g/dl RDW (11.0-16.0) % Plt Count (160-400) X10*3/uL MPV (9.4-12.4) fL Immature Gran % (Auto) (0.0-0.4) % Neut % (Auto) (45-73) % Lymph % (Auto) (20-40) % Robertson % (Auto) (2-11) % Eos % (Auto) (0-4) % Baso % (Auto) (0-2) % Lymph # (Auto) (1.2-4.9) X10*3/uL Robertson # (Auto) (0.1-1.2) X10*3/uL Eos # (Auto) (0.0-0.4) X10*3/uL Baso # (Auto) (0.0-0.2) X10*3/uL Abs Immat Gran (auto) (0.00-0.03) X10*3/uL Absolute Neuts (auto) (2.0-8.3) X10*3/uL Absolute Nucleated RBC (0.0-0.012) X10*3/uL Nucleated RBC % (auto) (0.0-0.2) /100WBC Smear Tech's Comments O2 Saturation % ABG pH at Pt Temp (7.35-7.45) ABG pCO2 at Pt Temp (32-45) mmHg ABG pO2 at Pt Temp (83-108) mmHg ABG HCO3 (22-26) mmol/L ABG Base Excess (Actual) mmol/L Sodium (135-145) mmol/L Potassium (3.3-5.1) mmol/L Chloride (96-108) mmol/L Carbon Dioxide (22-29) mmol/L Anion Gap (12-20) BUN (9-16) mg/dL Creatinine (0.5-1.4) mg/dL Estim Creat Clear Calc Estimated GFR POC Glucose 186 H (60-115) mg/dL Random Glucose (60-115) mg/dL Lactic Acid (0.5-2.0) mmol/L Calcium (8.4-10.2) mg/dL Magnesium (1.6-2.6) mg/dL Total Bilirubin (0.0-1.0) mg/dL Direct Bilirubin (0.0-0.5) mg/dL AST (5-37) U/L ALT (0-40) U/L Alkaline Phosphatase (39-117) U/L Troponin I High Sens (<3.5-35.0) ng/L B-Natriuretic Peptide (<100) pg/mL Total Protein (6.5-8.0) g/dL Albumin (3.5-5.0) g/dL Urine Color DARK YELLOW Urine Appearance CLEAR Urine pH 7.0 (5.0-8.0) Ur Specific [place] 1.020 (1.005-1.025) Urine Protein 2+ H (NEG-TRACE) MG/DL Urine Glucose (UA) NEG (NEG) MG/DL Urine Ketones 15 (NEG) MG/DL Urine Blood NEG (NEG) Urine Nitrite NEG (NEG) Ur Leukocyte Esterase NEG (NEG) Urine RBC 0 (0) /HPF Urine WBC 0-2 (0-4) /HPF Ur Squamous Epith Cells 1+ /LPF Urine Opiates Screen Not Detected (Not Detect) Ur Barbiturates Screen Not Detected (Not Detect) Ur Phencyclidine Scrn Not Detected (Not Detect) Ur Amphetamines Screen Not Detected (Not Detect) U Benzodiazepines Scrn Not Detected (Not Detect) Urine Cocaine Screen Not Detected (Not Detect) U Marijuana (THC) Screen Not Detected (Not Detect) COVID-19 (JULIO) (Negative) COVID-19 Clin Com 02/03/21 Range/Units 16:02 WBC (4.8-10.8) X10*3/uL RBC (4.60-5.80) X10*6/uL Hgb (14.0-18.0) g/dl Hct (42-52) % MCV (80-98) fL MCH (27.0-33.0) pg MCHC (31.0-36.0) g/dl RDW (11.0-16.0) % Plt Count (160-400) X10*3/uL MPV (9.4-12.4) fL Immature Gran % (Auto) (0.0-0.4) % Neut % (Auto) (45-73) % Lymph % (Auto) (20-40) % Robertson % (Auto) (2-11) % Eos % (Auto) (0-4) % Baso % (Auto) (0-2) % Lymph # (Auto) (1.2-4.9) X10*3/uL Robertson # (Auto) (0.1-1.2) X10*3/uL Eos # (Auto) (0.0-0.4) X10*3/uL Baso # (Auto) (0.0-0.2) X10*3/uL Abs Immat Gran (auto) (0.00-0.03) X10*3/uL Absolute Neuts (auto) (2.0-8.3) X10*3/uL Absolute Nucleated RBC (0.0-0.012) X10*3/uL Nucleated RBC % (auto) (0.0-0.2) /100WBC Smear Tech's Comments O2 Saturation % ABG pH at Pt Temp (7.35-7.45) ABG pCO2 at Pt Temp (32-45) mmHg ABG pO2 at Pt Temp (83-108) mmHg ABG HCO3 (22-26) mmol/L ABG Base Excess (Actual) mmol/L Sodium (135-145) mmol/L Potassium (3.3-5.1) mmol/L Chloride (96-108) mmol/L Carbon Dioxide (22-29) mmol/L Anion Gap (12-20) BUN (9-16) mg/dL Creatinine (0.5-1.4) mg/dL Estim Creat Clear Calc Estimated GFR POC Glucose 106 (60-115) mg/dL Random Glucose (60-115) mg/dL Lactic Acid (0.5-2.0) mmol/L Calcium (8.4-10.2) mg/dL Magnesium (1.6-2.6) mg/dL Total Bilirubin (0.0-1.0) mg/dL Direct Bilirubin (0.0-0.5) mg/dL AST (5-37) U/L ALT (0-40) U/L Alkaline Phosphatase (39-117) U/L Troponin I High Sens (<3.5-35.0) ng/L B-Natriuretic Peptide (<100) pg/mL Total Protein (6.5-8.0) g/dL Albumin (3.5-5.0) g/dL Urine Color Urine Appearance Urine pH (5.0-8.0) Ur Specific [place] (1.005-1.025) Urine Protein (NEG-TRACE) MG/DL Urine Glucose (UA) (NEG) MG/DL Urine Ketones (NEG) MG/DL Urine Blood (NEG) Urine Nitrite (NEG) Ur Leukocyte Esterase (NEG) Urine RBC (0) /HPF Urine WBC (0-4) /HPF Ur Squamous Epith Cells /LPF Urine Opiates Screen (Not Detect) Ur Barbiturates Screen (Not Detect) Ur Phencyclidine Scrn (Not Detect) Ur Amphetamines Screen (Not Detect) U Benzodiazepines Scrn (Not Detect) Urine Cocaine Screen (Not Detect) U Marijuana (THC) Screen (Not Detect) COVID-19 (JULIO) (Negative) COVID-19 Clin Com <KOLE Thomas - Last Filed: 02/03/21 16:36> Lab Results 02/03/21 02/03/21 02/03/21 Range/Units 13:57 14:13 14:13 WBC 18.6 H (4.8-10.8) X10*3/uL RBC 5.58 (4.60-5.80) X10*6/uL Hgb 14.0 (14.0-18.0) g/dl Hct 44.3 (42-52) % MCV 79.4 L (80-98) fL MCH 25.1 L (27.0-33.0) pg MCHC 31.6 (31.0-36.0) g/dl RDW 14.9 (11.0-16.0) % Plt Count 314 (160-400) X10*3/uL MPV 10.3 (9.4-12.4) fL Immature Gran % (Auto) 0.6 H (0.0-0.4) % Neut % (Auto) 73.9 H (45-73) % Lymph % (Auto) 12.7 L (20-40) % Robertson % (Auto) 11.2 H (2-11) % Eos % (Auto) 1.3 (0-4) % Baso % (Auto) 0.3 (0-2) % Lymph # (Auto) 2.4 (1.2-4.9) X10*3/uL Robertson # (Auto) 2.1 H (0.1-1.2) X10*3/uL Eos # (Auto) 0.2 (0.0-0.4) X10*3/uL Baso # (Auto) 0.1 (0.0-0.2) X10*3/uL Abs Immat Gran (auto) 0.11 H (0.00-0.03) X10*3/uL Absolute Neuts (auto) 13.8 H (2.0-8.3) X10*3/uL Absolute Nucleated RBC 0.000 (0.0-0.012) X10*3/uL Nucleated RBC % (auto) 0.0 (0.0-0.2) /100WBC Smear Tech's Comments VERIFIED O2 Saturation 90.0 % ABG pH at Pt Temp 7.46 H (7.35-7.45) ABG pCO2 at Pt Temp 35 (32-45) mmHg ABG pO2 at Pt Temp 65 L (83-108) mmHg ABG HCO3 25 (22-26) mmol/L ABG Base Excess (Actual) 2.5 mmol/L Sodium 140 (135-145) mmol/L Potassium 4.2 (3.3-5.1) mmol/L Chloride 103 (96-108) mmol/L Carbon Dioxide 28 (22-29) mmol/L Anion Gap 13 (12-20) BUN 26 H (9-16) mg/dL Creatinine 0.76 (0.5-1.4) mg/dL Estim Creat Clear Calc 121.8 Estimated GFR > 60 POC Glucose (60-115) mg/dL Random Glucose 88 (60-115) mg/dL Lactic Acid (0.5-2.0) mmol/L Calcium 9.2 D (8.4-10.2) mg/dL Magnesium 2.0 (1.6-2.6) mg/dL Total Bilirubin 0.4 (0.0-1.0) mg/dL Direct Bilirubin 0.2 (0.0-0.5) mg/dL AST 42 H D (5-37) U/L ALT 18 (0-40) U/L Alkaline Phosphatase 77 D (39-117) U/L Troponin I High Sens (<3.5-35.0) ng/L B-Natriuretic Peptide (<100) pg/mL Total Protein 7.3 D (6.5-8.0) g/dL Albumin 3.5 D (3.5-5.0) g/dL Urine Color Urine Appearance Urine pH (5.0-8.0) Ur Specific [place] (1.005-1.025) Urine Protein (NEG-TRACE) MG/DL Urine Glucose (UA) (NEG) MG/DL Urine Ketones (NEG) MG/DL Urine Blood (NEG) Urine Nitrite (NEG) Ur Leukocyte Esterase (NEG) Urine RBC (0) /HPF Urine WBC (0-4) /HPF Ur Squamous Epith Cells /LPF Urine Opiates Screen (Not Detect) Ur Barbiturates Screen (Not Detect) Ur Phencyclidine Scrn (Not Detect) Ur Amphetamines Screen (Not Detect) U Benzodiazepines Scrn (Not Detect) Urine Cocaine Screen (Not Detect) U Marijuana (THC) Screen (Not Detect) COVID-19 (JULIO) (Negative) COVID-19 Clin Com 02/03/21 02/03/21 02/03/21 Range/Units 14:13 14:13 14:13 WBC (4.8-10.8) X10*3/uL RBC (4.60-5.80) X10*6/uL Hgb (14.0-18.0) g/dl Hct (42-52) % MCV (80-98) fL MCH (27.0-33.0) pg MCHC (31.0-36.0) g/dl RDW (11.0-16.0) % Plt Count (160-400) X10*3/uL MPV (9.4-12.4) fL Immature Gran % (Auto) (0.0-0.4) % Neut % (Auto) (45-73) % Lymph % (Auto) (20-40) % Robertson % (Auto) (2-11) % Eos % (Auto) (0-4) % Baso % (Auto) (0-2) % Lymph # (Auto) (1.2-4.9) X10*3/uL Robertson # (Auto) (0.1-1.2) X10*3/uL Eos # (Auto) (0.0-0.4) X10*3/uL Baso # (Auto) (0.0-0.2) X10*3/uL Abs Immat Gran (auto) (0.00-0.03) X10*3/uL Absolute Neuts (auto) (2.0-8.3) X10*3/uL Absolute Nucleated RBC (0.0-0.012) X10*3/uL Nucleated RBC % (auto) (0.0-0.2) /100WBC Smear Tech's Comments O2 Saturation % ABG pH at Pt Temp (7.35-7.45) ABG pCO2 at Pt Temp (32-45) mmHg ABG pO2 at Pt Temp (83-108) mmHg ABG HCO3 (22-26) mmol/L ABG Base Excess (Actual) mmol/L Sodium (135-145) mmol/L Potassium (3.3-5.1) mmol/L Chloride (96-108) mmol/L Carbon Dioxide (22-29) mmol/L Anion Gap (12-20) BUN (9-16) mg/dL Creatinine (0.5-1.4) mg/dL Estim Creat Clear Calc Estimated GFR POC Glucose (60-115) mg/dL Random Glucose (60-115) mg/dL Lactic Acid 1.8 (0.5-2.0) mmol/L Calcium (8.4-10.2) mg/dL Magnesium (1.6-2.6) mg/dL Total Bilirubin (0.0-1.0) mg/dL Direct Bilirubin (0.0-0.5) mg/dL AST (5-37) U/L ALT (0-40) U/L Alkaline Phosphatase (39-117) U/L Troponin I High Sens 8.5 (<3.5-35.0) ng/L B-Natriuretic Peptide 32 (<100) pg/mL Total Protein (6.5-8.0) g/dL Albumin (3.5-5.0) g/dL Urine Color Urine Appearance Urine pH (5.0-8.0) Ur Specific [place] (1.005-1.025) Urine Protein (NEG-TRACE) MG/DL Urine Glucose (UA) (NEG) MG/DL Urine Ketones (NEG) MG/DL Urine Blood (NEG) Urine Nitrite (NEG) Ur Leukocyte Esterase (NEG) Urine RBC (0) /HPF Urine WBC (0-4) /HPF Ur Squamous Epith Cells /LPF Urine Opiates Screen (Not Detect) Ur Barbiturates Screen (Not Detect) Ur Phencyclidine Scrn (Not Detect) Ur Amphetamines Screen (Not Detect) U Benzodiazepines Scrn (Not Detect) Urine Cocaine Screen (Not Detect) U Marijuana (THC) Screen (Not Detect) COVID-19 (JULIO) Negative (Negative) COVID-19 Clin Com See Note 02/03/21 02/03/21 02/03/21 Range/Units 15:12 15:33 15:33 WBC (4.8-10.8) X10*3/uL RBC (4.60-5.80) X10*6/uL Hgb (14.0-18.0) g/dl Hct (42-52) % MCV (80-98) fL MCH (27.0-33.0) pg MCHC (31.0-36.0) g/dl RDW (11.0-16.0) % Plt Count (160-400) X10*3/uL MPV (9.4-12.4) fL Immature Gran % (Auto) (0.0-0.4) % Neut % (Auto) (45-73) % Lymph % (Auto) (20-40) % Robertson % (Auto) (2-11) % Eos % (Auto) (0-4) % Baso % (Auto) (0-2) % Lymph # (Auto) (1.2-4.9) X10*3/uL Robertson # (Auto) (0.1-1.2) X10*3/uL Eos # (Auto) (0.0-0.4) X10*3/uL Baso # (Auto) (0.0-0.2) X10*3/uL Abs Immat Gran (auto) (0.00-0.03) X10*3/uL Absolute Neuts (auto) (2.0-8.3) X10*3/uL Absolute Nucleated RBC (0.0-0.012) X10*3/uL Nucleated RBC % (auto) (0.0-0.2) /100WBC Smear Tech's Comments O2 Saturation % ABG pH at Pt Temp (7.35-7.45) ABG pCO2 at Pt Temp (32-45) mmHg ABG pO2 at Pt Temp (83-108) mmHg ABG HCO3 (22-26) mmol/L ABG Base Excess (Actual) mmol/L Sodium (135-145) mmol/L Potassium (3.3-5.1) mmol/L Chloride (96-108) mmol/L Carbon Dioxide (22-29) mmol/L Anion Gap (12-20) BUN (9-16) mg/dL Creatinine (0.5-1.4) mg/dL Estim Creat Clear Calc Estimated GFR POC Glucose 186 H (60-115) mg/dL Random Glucose (60-115) mg/dL Lactic Acid (0.5-2.0) mmol/L Calcium (8.4-10.2) mg/dL Magnesium (1.6-2.6) mg/dL Total Bilirubin (0.0-1.0) mg/dL Direct Bilirubin (0.0-0.5) mg/dL AST (5-37) U/L ALT (0-40) U/L Alkaline Phosphatase (39-117) U/L Troponin I High Sens (<3.5-35.0) ng/L B-Natriuretic Peptide (<100) pg/mL Total Protein (6.5-8.0) g/dL Albumin (3.5-5.0) g/dL Urine Color DARK YELLOW Urine Appearance CLEAR Urine pH 7.0 (5.0-8.0) Ur Specific [place] 1.020 (1.005-1.025) Urine Protein 2+ H (NEG-TRACE) MG/DL Urine Glucose (UA) NEG (NEG) MG/DL Urine Ketones 15 (NEG) MG/DL Urine Blood NEG (NEG) Urine Nitrite NEG (NEG) Ur Leukocyte Esterase NEG (NEG) Urine RBC 0 (0) /HPF Urine WBC 0-2 (0-4) /HPF Ur Squamous Epith Cells 1+ /LPF Urine Opiates Screen Not Detected (Not Detect) Ur Barbiturates Screen Not Detected (Not Detect) Ur Phencyclidine Scrn Not Detected (Not Detect) Ur Amphetamines Screen Not Detected (Not Detect) U Benzodiazepines Scrn Not Detected (Not Detect) Urine Cocaine Screen Not Detected (Not Detect) U Marijuana (THC) Screen Not Detected (Not Detect) COVID-19 (JULIO) (Negative) COVID-19 Clin Com 02/03/21 Range/Units 16:02 WBC (4.8-10.8) X10*3/uL RBC (4.60-5.80) X10*6/uL Hgb (14.0-18.0) g/dl Hct (42-52) % MCV (80-98) fL MCH (27.0-33.0) pg MCHC (31.0-36.0) g/dl RDW (11.0-16.0) % Plt Count (160-400) X10*3/uL MPV (9.4-12.4) fL Immature Gran % (Auto) (0.0-0.4) % Neut % (Auto) (45-73) % Lymph % (Auto) (20-40) % Robertson % (Auto) (2-11) % Eos % (Auto) (0-4) % Baso % (Auto) (0-2) % Lymph # (Auto) (1.2-4.9) X10*3/uL Robertson # (Auto) (0.1-1.2) X10*3/uL Eos # (Auto) (0.0-0.4) X10*3/uL Baso # (Auto) (0.0-0.2) X10*3/uL Abs Immat Gran (auto) (0.00-0.03) X10*3/uL Absolute Neuts (auto) (2.0-8.3) X10*3/uL Absolute Nucleated RBC (0.0-0.012) X10*3/uL Nucleated RBC % (auto) (0.0-0.2) /100WBC Smear Tech's Comments O2 Saturation % ABG pH at Pt Temp (7.35-7.45) ABG pCO2 at Pt Temp (32-45) mmHg ABG pO2 at Pt Temp (83-108) mmHg ABG HCO3 (22-26) mmol/L ABG Base Excess (Actual) mmol/L Sodium (135-145) mmol/L Potassium (3.3-5.1) mmol/L Chloride (96-108) mmol/L Carbon Dioxide (22-29) mmol/L Anion Gap (12-20) BUN (9-16) mg/dL Creatinine (0.5-1.4) mg/dL Estim Creat Clear Calc Estimated GFR POC Glucose 106 (60-115) mg/dL Random Glucose (60-115) mg/dL Lactic Acid (0.5-2.0) mmol/L Calcium (8.4-10.2) mg/dL Magnesium (1.6-2.6) mg/dL Total Bilirubin (0.0-1.0) mg/dL Direct Bilirubin (0.0-0.5) mg/dL AST (5-37) U/L ALT (0-40) U/L Alkaline Phosphatase (39-117) U/L Troponin I High Sens (<3.5-35.0) ng/L B-Natriuretic Peptide (<100) pg/mL Total Protein (6.5-8.0) g/dL Albumin (3.5-5.0) g/dL Urine Color Urine Appearance Urine pH (5.0-8.0) Ur Specific [place] (1.005-1.025) Urine Protein (NEG-TRACE) MG/DL Urine Glucose (UA) (NEG) MG/DL Urine Ketones (NEG) MG/DL Urine Blood (NEG) Urine Nitrite (NEG) Ur Leukocyte Esterase (NEG) Urine RBC (0) /HPF Urine WBC (0-4) /HPF Ur Squamous Epith Cells /LPF Urine Opiates Screen (Not Detect) Ur Barbiturates Screen (Not Detect) Ur Phencyclidine Scrn (Not Detect) Ur Amphetamines Screen (Not Detect) U Benzodiazepines Scrn (Not Detect) Urine Cocaine Screen (Not Detect) U Marijuana (THC) Screen (Not Detect) COVID-19 (JULIO) (Negative) COVID-19 Clin Com <Devyn Cardoza MD - Last Filed: 02/03/21 14:47> ECG Data Attestation: I personally reviewed and interpreted this ECG as follows: <KOLE Thomas - Last Filed: 02/03/21 16:36> Prior ECG tracings: available for review <KOLE Thomas - Last Filed: 02/03/21 16:36> Interpretation: normal sinus rhythm, HR 83 bpm, normal GA interval, normal QTc. no ST segment elevations or depressions. <KOLE Thomas - Last Filed: 02/03/21 16:36> Critical Care Time Critical Care Time Critical Care Time: Yes <KOLE Thomas - Last Filed: 02/03/21 16:36> Total Critical Care Time: 42 <KOLE Thomas - Last Filed: 02/03/21 16:36> Attestation: I attest to critical care time spent with this patient with acute encephalopathy requiring frequent reassessments. <KOLE Thomas - Last Filed: 02/03/21 16:36> Discharge Plan Discharge Clinical Impression: Hypoglycemia, Acute encephalopathy Leukocytosis Qualifiers: Leukocytosis type: unspecified Qualified Code(s): D72.829 - Elevated white blood cell count, unspecified <OKLE Thomas - Last Filed: 02/03/21 16:36> Patient Disposition: Admitted As Inpatient <KOLE Thomas - Last Filed: 02/03/21 16:36>
[2021-02-03 14:05] LABS: ABG Base Excess 2.5 mmol/L; ABG HCO3 25 mmol/L (22-26); ABG pCO2 35 mmHg (32-45); ABG pH 7.46 (7.35-7.45); ABG pO2 65 mmHg (83-108)
[2021-02-03 14:24] LABS: Basophils Absolute Auto 0.1 X10*3/uL (0.0-0.2); Basophils Percent Auto 0.3 % (0-2); Eosinophils Absolute Auto 0.2 X10*3/uL (0.0-0.4); Eosinophils Percent Auto 1.3 % (0-4); Hematocrit 44.3 % (42-52); Imm Gran Abs Auto 0.11 X10*3/uL (0.00-0.03); Imm Gran Pct Auto 0.6 % (0.0-0.4); Lymphocytes Absolute Auto 2.4 X10*3/uL (1.2-4.9); Lymphocytes Percent Auto 12.7 % (20-40); MANUAL DIFF FLAG SCAN; Mean Corpuscular HGB Conc 31.6 g/dl (31.0-36.0); Mean Corpuscular Hemoglobin 25.1 pg (27.0-33.0); Mean Corpuscular Volume 79.4 fL (80-98); Mean Platelet Volume 10.3 fL (9.4-12.4); Monocytes Absolute Auto 2.1 X10*3/uL (0.1-1.2); Monocytes Percent Auto 11.2 % (2-11); Neutrophils Absolute Auto 13.8 X10*3/uL (2.0-8.3); Neutrophils Percent Auto 73.9 % (45-73); Platelet Count 314 X10*3/uL (160-400); Red Blood Count 5.58 X10*6/uL (4.60-5.80); Red Cell Distribution Width 14.9 % (11.0-16.0); SCAN SMEAR FLAG 1; White Blood Count 18.6 X10*3/uL (4.8-10.8)
--- NOTE | 2021-02-03 14:41 | ECG_ITS ---
Test Reason : AMS Blood Pressure : / mmHG Vent. Rate : 083 BPM Atrial Rate : 083 BPM P-R Int : 150 ms QRS Dur : 088 ms QT Int : 380 ms P-R-T Axes : 002 067 064 degrees QTc Int : 446 ms Normal sinus rhythm Normal ECG When compared with ECG of 29-JAN-2021 12:34, No significant change was found Referred By: Aleida Doshi Electronically Signed By:JAIRON YEH
[2021-02-03 14:44] LABS: SLIDE REVIEW VERIFIED
[2021-02-03 14:45] LABS: Lactic Acid 1.8 mmol/L (0.5-2.0)
--- NOTE | 2021-02-03 14:55 | PC.NURSE ---
Patient given 25 grams of D50 iv push for fsbs 66 per providers orders. Pt sleeping and does not respond to tactile or verbal stimuli
[2021-02-03 14:56] LABS: Alanine Aminotransferase 18 U/L (0-40); Albumin Level 3.5 g/dL (3.5-5.0); Alkaline Phosphatase 77 U/L (39-117); Anion Gap 13 (12-20); Aspartate Amino Transferase 42 U/L (5-37); Bilirubin Direct 0.2 mg/dL (0.0-0.5); Bilirubin Total 0.4 mg/dL (0.0-1.0); Blood Urea Nitrogen 26 mg/dL (9-16); Calcium 9.2 mg/dL (8.4-10.2); Carbon Dioxide 28 mmol/L (22-29); Chloride 103 mmol/L (96-108); Creatinine Clr Calc Pharmacy 121.8; Estimated Glomerular Filt Rate > 60; Glucose Random 88 mg/dL (60-115); Potassium 4.2 mmol/L (3.3-5.1); Sodium 140 mmol/L (135-145); Total Protein 7.3 g/dL (6.5-8.0)
--- NOTE | 2021-02-03 14:57 | PHA.MEDREC ---
Pharmacy Consult ? Medication Reconciliation Pharmacy has completed the medication reconciliation.
[2021-02-03 15:02] LABS: B Type Natriuretic Peptide 32 pg/mL (<100); Troponin-I High Sensitivity 8.5 ng/L (<3.5-35.0)
--- NOTE | 2021-02-03 15:12 | PC.NURSE ---
FSBS 186 after getting D50. Pt continues to sleep. Pt opens eyes with tactile stimulation and name being called but immediately goes back to sleep.
[2021-02-03 15:13] LABS: COVID-19 Test Negative (Negative)
[2021-02-03 15:18] LABS: Glucose, Whole Blood 186 mg/dL (60-115)
[2021-02-03 15:20] LABS: Glucose, Whole Blood 66 mg/dL (60-115)
[2021-02-03 15:21] LABS: Glucose, Whole Blood 103 mg/dL (60-115)
[2021-02-03] MEDS: Naloxone HCl 0.4 MG/ML VIAL IVPUSH (15:23)
[2021-02-03 15:53] LABS: Glucose Urine UA NEG (NEG); Leukocyte Esterase Urine NEG (NEG); Nitrite Urine NEG (NEG); Urine Blood NEG (NEG); Urine Ketones 15 MG/DL (NEG); Urine Protein 2+ MG/DL (NEG-TRACE)
[2021-02-03 15:54] LABS: Color Urine DARK YELLOW
[2021-02-03 15:55] LABS: Appearance Urine CLEAR
[2021-02-03 16:02] LABS: RBC Urine 0 /HPF (0); Squamous Epithelial Cell Urine 1+ /LPF; WBC Urine 0-2 /HPF (0-4)
[2021-02-03 16:05] LABS: Glucose, Whole Blood 106 mg/dL (60-115)
[2021-02-03 16:20] LABS: Amphetamine Screen Urine Not Detected (Not Detect); Barbiturates, Urine Not Detected (Not Detect); Benzodiazepines Screen Urine Not Detected (Not Detect); Cannabinoid Screen Urine Not Detected (Not Detect); Cocaine Screen Urine Not Detected (Not Detect); Opiate Screen Urine Not Detected (Not Detect); Phencyclidine Screen Urine Not Detected (Not Detect)
--- NOTE | 2021-02-03 17:28 | PM.IMHP ---
History of Present Illness Date of Service: 02/03/21 Chief Complaint: ams 65M sent in from SN[facility] for AMS. patient noted to be stupourous and not eating much. his glucose noted to be 50. was given D50 and glucagon. in ED glucose 66, still very lethargic, responding to sternal rub, but then goes back to sleep. no co2 retention, urine, CTH, and cxr unremarkable. patient himself cannot give any history. of note patient had recent fall and spinal fracture for which he had been on oxycodone, he was given narcan in ED in case this was related to opiates, however, he did not respond. Review of Systems Review of Systems: Yes Unobtainable due to mental condition [facility] Medical History Alcohol dependence in remission Anemia Antisocial personality disorder Blind right eye Cataract, right eye CHF (congestive heart failure) Chronic respiratory failure with hypoxia Cocaine abuse in remission COPD (chronic obstructive pulmonary disease) GERD (gastroesophageal reflux disease) HTN (hypertension) Hyperlipidemia Psoriasis Pulmonary fibrosis Vitamin D deficiency Family history: reviewed and not pertinent Social History Alcohol intake: unknown Patient Tobacco Use Status: Tobacco use Unknown Use of substances other than those prescribed or required for medical reasons: Unable to respond Advance Directives: No Advance Directives Information Provided: No Meds Allergies Allergy/AdvReac Type Severity Reaction Status Date / Time Penicillins [PCN] Allergy Unknown Verified 01/29/21 11:55 Active Medications: Current Medications Generic Name Dose Route Start Last Admin Trade Name Freq PRN Reason Stop Dose Admin Dextrose/Sodium Chloride 1,000 mls @ 75 mls/hr 02/03/21 16:30 D51/2ns IVCONT .[id number] [facility] Pharmacy Consult 1 each 02/03/21 13:39 Consult Rx Perform Med Rec MISCELLANE ONCE PRN Consult order Home Medications Medication Instructions Recorded Confirmed Last Taken Type acetaminophen [Tylenol] 650 mg PO Q4H PRN 02/03/21 02/03/21 Unknown History alum-mag hydroxide-simeth [Maalox] 30 ml PO Q6H PRN 02/03/21 02/03/21 Unknown History ascorbic acid (vitamin C) 500 mg PO DAILY 02/03/21 02/03/21 Unknown History aspirin [Aspirin Low Dose] 81 mg PO DAILY 02/03/21 02/03/21 Unknown History atorvastatin 40 mg PO BEDTIME 02/03/21 02/03/21 Unknown History benztropine 0.5 mg PO BID 02/03/21 02/03/21 Unknown History betamethasone dipropionate 1 appl TOPICAL BID 02/03/21 02/03/21 Unknown History bisacodyl 5 mg PO Q24H PRN 02/03/21 02/03/21 Unknown History bisacodyl 10 mg NM DAILY PRN 02/03/21 02/03/21 Unknown History divalproex [Depakote] 1,000 mg PO DAILY 02/03/21 02/03/21 Unknown History divalproex [Depakote] 1,500 mg PO BEDTIME 02/03/21 02/03/21 Unknown History docusate sodium [Colace] 100 mg PO BID 02/03/21 02/03/21 Unknown History ferrous sulfate [Feosol] 325 mg PO DAILY 02/03/21 02/03/21 Unknown History furosemide [Lasix] 40 mg PO DAILY 02/03/21 02/03/21 Unknown History insulin glargine [Lantus U-100 56 unit SUBCUT BEDTIME 02/03/21 02/03/21 Unknown History Insulin] magnesium hydroxide [Milk of 30 ml PO DAILY PRN 02/03/21 02/03/21 Unknown History Magnesia] magnesium oxide 400 mg PO TID 02/03/21 02/03/21 Unknown History metformin 1,000 mg PO BID 02/03/21 02/03/21 Unknown History metoprolol tartrate 25 mg PO BID 02/03/21 02/03/21 Unknown History multivitamin 1 tab PO DAILY 02/03/21 02/03/21 Unknown History olanzapine 10 mg PO BEDTIME 02/03/21 02/03/21 Unknown History polyethylene glycol 3350 [Miralax] 17 g PO DAILY 02/03/21 02/03/21 Unknown History tiotropium bromide [Spiriva 2 puff INHALATION DAILY 02/03/21 02/03/21 Unknown History Respimat] Physical Exam Vital Signs and Narrative: Vital Signs: Last Vital Signs Temp 97.9 F 02/03/21 13:45 Pulse 77 02/03/21 15:05 Resp 20 02/03/21 14:59 BP 124/72 02/03/21 15:05 Pulse Ox 91 L 02/03/21 15:05 Body Mass Index 33.8 General: obtunded, responding to sternal rub only HEENT: atraumatic Neck: normal to visual inspection CVS: S1, S2, RRR, 2+ edema Resp: CTA bilateral Chest: non tender GI: soft, non tender, non distended : no CVA tenderness Skin: no rashes Extremities: 2+ edema Neuro: obtunded Psych: impaired insight Results Labs CBC and Chem 7: 02/03/21 14:13 02/03/21 14:13 Labs: Laboratory Results - last 24 hr 02/03/21 02/03/21 02/03/21 13:57 14:13 14:13 MCV 79.4 L MCH 25.1 L MCHC 31.6 RDW 14.9 Plt Count 314 MPV 10.3 Immature Gran % (Auto) 0.6 H Neut % (Auto) 73.9 H Lymph % (Auto) 12.7 L [place] % (Auto) 11.2 H Eos % (Auto) 1.3 Baso % (Auto) 0.3 Lymph # (Auto) 2.4 [place] # (Auto) 2.1 H Eos # (Auto) 0.2 Baso # (Auto) 0.1 Abs Immat Gran (auto) 0.11 H Absolute Neuts (auto) 13.8 H Absolute Nucleated RBC 0.000 Nucleated RBC % (auto) 0.0 Smear Tech's Comments VERIFIED O2 Saturation 90.0 ABG pH at Pt Temp 7.46 H ABG pCO2 at Pt Temp 35 ABG pO2 at Pt Temp 65 L ABG HCO3 25 ABG Base Excess (Actual) 2.5 Anion Gap 13 Estim Creat Clear Calc 121.8 Estimated GFR > 60 POC Glucose Random Glucose 88 Lactic Acid Calcium 9.2 D Magnesium 2.0 Total Bilirubin 0.4 Direct Bilirubin 0.2 AST 42 H D ALT 18 Alkaline Phosphatase 77 D Troponin I High Sens B-Natriuretic Peptide Total Protein 7.3 D Albumin 3.5 D Urine Color Urine Appearance Urine pH Ur Specific [place] Urine Protein Urine Glucose (UA) Urine Ketones Urine Blood Urine Nitrite Ur Leukocyte Esterase Urine RBC Urine WBC Ur Squamous Epith Cells Urine Opiates Screen Ur Barbiturates Screen Ur Phencyclidine Scrn Ur Amphetamines Screen U Benzodiazepines Scrn Urine Cocaine Screen U Marijuana (THC) Screen COVID-19 (JULIO) COVID-19 Clin Com 02/03/21 02/03/21 02/03/21 14:13 14:13 14:13 MCV MCH MCHC RDW Plt Count MPV Immature Gran % (Auto) Neut % (Auto) Lymph % (Auto) [place] % (Auto) Eos % (Auto) Baso % (Auto) Lymph # (Auto) [place] # (Auto) Eos # (Auto) Baso # (Auto) Abs Immat Gran (auto) Absolute Neuts (auto) Absolute Nucleated RBC Nucleated RBC % (auto) Smear Tech's Comments O2 Saturation ABG pH at Pt Temp ABG pCO2 at Pt Temp ABG pO2 at Pt Temp ABG HCO3 ABG Base Excess (Actual) Anion Gap Estim Creat Clear Calc Estimated GFR POC Glucose Random Glucose Lactic Acid 1.8 Calcium Magnesium Total Bilirubin Direct Bilirubin AST ALT Alkaline Phosphatase Troponin I High Sens 8.5 B-Natriuretic Peptide 32 Total Protein Albumin Urine Color Urine Appearance Urine pH Ur Specific [place] Urine Protein Urine Glucose (UA) Urine Ketones Urine Blood Urine Nitrite Ur Leukocyte Esterase Urine RBC Urine WBC Ur Squamous Epith Cells Urine Opiates Screen Ur Barbiturates Screen Ur Phencyclidine Scrn Ur Amphetamines Screen U Benzodiazepines Scrn Urine Cocaine Screen U Marijuana (THC) Screen COVID-19 (JULIO) Negative COVID-19 [employer] Com See Note 02/03/21 02/03/21 02/03/21 15:12 15:33 15:33 MCV MCH MCHC RDW Plt Count MPV Immature Gran % (Auto) Neut % (Auto) Lymph % (Auto) [place] % (Auto) Eos % (Auto) Baso % (Auto) Lymph # (Auto) [place] # (Auto) Eos # (Auto) Baso # (Auto) Abs Immat Gran (auto) Absolute Neuts (auto) Absolute Nucleated RBC Nucleated RBC % (auto) Smear Tech's Comments O2 Saturation ABG pH at Pt Temp ABG pCO2 at Pt Temp ABG pO2 at Pt Temp ABG HCO3 ABG Base Excess (Actual) Anion Gap Estim Creat Clear Calc Estimated GFR POC Glucose 186 H Random Glucose Lactic Acid Calcium Magnesium Total Bilirubin Direct Bilirubin AST ALT Alkaline Phosphatase Troponin I High Sens B-Natriuretic Peptide Total Protein Albumin Urine Color DARK YELLOW Urine Appearance CLEAR Urine pH 7.0 Ur Specific [place] 1.020 Urine Protein 2+ H Urine Glucose (UA) NEG Urine Ketones 15 Urine Blood NEG Urine Nitrite NEG Ur Leukocyte Esterase NEG Urine RBC 0 Urine WBC 0-2 Ur Squamous Epith Cells 1+ Urine Opiates Screen Not Detected Ur Barbiturates Screen Not Detected Ur Phencyclidine Scrn Not Detected Ur Amphetamines Screen Not Detected U Benzodiazepines Scrn Not Detected Urine Cocaine Screen Not Detected U Marijuana (THC) Screen Not Detected COVID-19 (JULIO) COVID-19 Clin Com 02/03/21 16:02 MCV MCH MCHC RDW Plt Count MPV Immature Gran % (Auto) Neut % (Auto) Lymph % (Auto) [place] % (Auto) Eos % (Auto) Baso % (Auto) Lymph # (Auto) [place] # (Auto) Eos # (Auto) Baso # (Auto) Abs Immat Gran (auto) Absolute Neuts (auto) Absolute Nucleated RBC Nucleated RBC % (auto) Smear Tech's Comments O2 Saturation ABG pH at Pt Temp ABG pCO2 at Pt Temp ABG pO2 at Pt Temp ABG HCO3 ABG Base Excess (Actual) Anion Gap Estim Creat Clear Calc Estimated GFR POC Glucose 106 Random Glucose Lactic Acid Calcium Magnesium Total Bilirubin Direct Bilirubin AST ALT Alkaline Phosphatase Troponin I High Sens B-Natriuretic Peptide Total Protein Albumin Urine Color Urine Appearance Urine pH Ur Specific [place] Urine Protein Urine Glucose (UA) Urine Ketones Urine Blood Urine Nitrite Ur Leukocyte Esterase Urine RBC Urine WBC Ur Squamous Epith Cells Urine Opiates Screen Ur Barbiturates Screen Ur Phencyclidine Scrn Ur Amphetamines Screen U Benzodiazepines Scrn Urine Cocaine Screen U Marijuana (THC) Screen COVID-19 (JULIO) COVID-19 Clin Com Imaging Radiologist's Impressions: Impressions Chest X-Ray 02/03/21 13:35 IMPRESSION: Hypoexpanded lungs with no acute process. Head CT 02/03/21 13:39 IMPRESSION: No acute intracranial process seen. Age-related cerebral volume loss. Assessment and Plan (1) Acute encephalopathy: Status: Acute 65M presented with ams toxic metabolic encephalopathy differential includes hypogllycemia - monitor fingers sticks, hold lantus, on D5 1/2NS, would have expected response to d50 drug induced - hold opiates, depakote (mood stabilzier not for seizures), zyprexa ? underlying infection - no evidence yet, hold off on anitiobitcs for now, follow up cultures chronic hypoxic repsiraotry failure due to copd stable CAD asa, statin DM hold lantus for hypoglycemia, can use sliding scale dvt prophylaxis - lovenox full code
[2021-02-03] MEDS: Dextrose 5 % and 0.45 % NaCl 1,000 ML 75 ML IVCONT (17:45)
--- NOTE | 2021-02-03 18:28 | PC.NURSE ---
Patient is resting quiety in bed. Pt opens eyes to name being called.
--- NOTE | 2021-02-03 18:56 | MHC.CM.PN ---
CM spoke with Court appointed guardian Andree Yepez ([phone]) with update regarding patient condition and that he will be admitted to the hospital. Guardianship papers on file. Right to place. Andree states that [place] has no family and that he has been doing pretty well over the past year, but usually has respiratory issues every year. Andree states he is a kind, polite, alert and all around nice mansi. States his processes slowly, and requests that staff speak slowly and simply with him, using an orchid superintendent. Pt is Thai speaking. Pt is a full code at his request. Andree states pt has been adamant at meetings that he wants to be a full code, and that is his wish. Andree states pt should return to [facility] when medically stable. D/C plan is to return to [facility]. Will need transportation.
--- NOTE | 2021-02-03 20:14 | PC.NURSE ---
Report given to Skye.
[2021-02-03 22:23] LABS: ABG Refer to POC result
[2021-02-03] MEDS: Enoxaparin Sodium 40 MG/0.4 ML SYRINGE SUBCUT (23:55)
[2021-02-04] VITALS (7 sets, daily range): BP systolic 106–149; BP diastolic 61–79; PULSE 75–101; RESP 18–24; TEMP 36.4–37.2; O2SAT 94–98; BMI 33.8
[2021-02-04 05:59] LABS: Hematocrit 42.7 % (42-52); Hemoglobin 13.5 g/dl (14.0-18.0); Mean Corpuscular HGB Conc 31.6 g/dl (31.0-36.0); Mean Corpuscular Hemoglobin 24.8 pg (27.0-33.0); Mean Corpuscular Volume 78.5 fL (80-98); Mean Platelet Volume 10.4 fL (9.4-12.4); Platelet Count 282 X10*3/uL (160-400); Red Blood Count 5.44 X10*6/uL (4.60-5.80); White Blood Count 9.4 X10*3/uL (4.8-10.8)
[2021-02-04 06:26] LABS: Anion Gap 13 (12-20); Blood Urea Nitrogen 16 mg/dL (9-16); Calcium 8.6 mg/dL (8.4-10.2); Carbon Dioxide 28 mmol/L (22-29); Chloride 100 mmol/L (96-108); Creatinine Clr Calc Pharmacy 159.6; Estimated Glomerular Filt Rate > 60; Glucose Random 114 mg/dL (60-115); Sodium 137 mmol/L (135-145)
[2021-02-04 07:24] LABS: Glucose, Whole Blood 123 mg/dL (60-115)
[2021-02-04 08:02] LABS: Glucose, Whole Blood 96 mg/dL (60-115)
[2021-02-04] MEDS: Dextrose 5 % and 0.45 % NaCl 1,000 ML 75 ML IVCONT (09:33)
[2021-02-04] MEDS: Docusate Sodium 100 MG CAPSULE PO (09:34)
[2021-02-04] MEDS: 0.9 % Sodium Chloride Flush 3 ML SYRINGE IVFLUSH ×2 (09:34→17:00)
[2021-02-04] MEDS: Magnesium Oxide 400 MG TABLET PO ×3 (09:34→20:31)
[2021-02-04] MEDS: Multivitamin TABLET 1 TAB PO (09:34)
[2021-02-04] MEDS: Ascorbic Acid 500 MG TABLET PO (09:34)
[2021-02-04] MEDS: Metoprolol Tartrate 25 MG TABLET PO ×2 (09:34→20:31)
[2021-02-04] MEDS: Aspirin Enteric Coated 81 MG TABLET.DR PO (09:34)
[2021-02-04] MEDS: Benztropine Mesylate 0.5 MG TABLET PO ×2 (09:34→20:30)
[2021-02-04 10:17] LABS: Valproate 24.6 mcg/mL (50.0-100.0)
--- NOTE | 2021-02-04 10:49 | PC.NURSE ---
Evaluated his right buttock and medial coccyx wounds. Right buttock is a stage 2 and medial coccyx is stage 3. Patient came from [facility] with these wounds present on admission to [facility]. Wound management will be Xeroform to both wounds covered with large Allevyn foam dressing. Will re-evaluate on Tuesday 02/06.
[2021-02-04 11:24] LABS: Glucose, Whole Blood 127 mg/dL (60-115)
--- NOTE | 2021-02-04 14:31 | MHC.CLN ---
RE: CONSULT PT WITH INCREASED NUTRITION RISK R/T PRESSURE INJURY PT WITH POOR PO INTAKE DIET RX: 1800DM -RECOMMEND 2200DM 2GM NA DIET TO MEET ESTIMATED NEEDS AND R/T HX CHF RECOMMEND ADDING GLUCERNA BID AND BRYAN BID TO INCREASE KCLAS AND PROMOTE WOUND HEALING SUPPLEMENT TO PROVIDE 634KCALS, 25G PROTEIN MONITOR PO INTAKE CLOSELY SEE ALSO CLINICAL NUTRITION ASSESSMENT
--- NOTE | 2021-02-04 14:55 | P.CONWO_ITS ---
History of Present Illness Data of Consult Service Date: 02/04/21 Requesting physician: Pantera Mc Primary Care Provider: Erinn Keane MD [facility] Reason for consult: Buttock wound The patient is a 65-year-old male who resides in a home who had a fall there and was brought in complaining of back pain. He has a fracture in his back and on evaluation was noted to have a stage to right wound that was present before admission. Patient is not very verbal Review of Systems Review of Systems: Yes Unobtainable due to mental condition and Unobtainable due to mental status [facility] Medical History Alcohol dependence in remission Anemia Antisocial personality disorder Blind right eye Cataract, right eye CHF (congestive heart failure) Chronic respiratory failure with hypoxia Cocaine abuse in remission COPD (chronic obstructive pulmonary disease) GERD (gastroesophageal reflux disease) HTN (hypertension) Hyperlipidemia Psoriasis Pulmonary fibrosis Vitamin D deficiency Family history: reviewed and not pertinent Social History Household Members: None Housing: [facility] Unable to assess alcohol history related to: Unable to respond Alcohol intake: unknown Patient Tobacco Use Status: Tobacco use Unknown Use of substances other than those prescribed or required for medical reasons: Unknown Currently Displaying Signs/Symptoms of Drug Intoxication Withdrawal: No Advance Directives: No Advance Directives Information Provided: No Do you have thoughts of harming others: None Do you have a plan to hurt others: No Plan Recently lost weight without trying: Unsure Nutrition Risks: On aspiration precautions service: No Current occupational status: disabled Meds Allergies Allergy/AdvReac Type Severity Reaction Status Date / Time Penicillins [PCN] Allergy Unknown Verified 01/29/21 11:55 Active Medications: Current Medications Generic Name Dose Route Start Last Admin Trade Name Freq PRN Reason Stop Dose Admin Acetaminophen 650 mg 02/03/21 22:16 Acetaminophen 325 Mg Tablet PO Q4H PRN PAIN/ FEVER Ascorbic Acid 500 mg 02/04/21 09:00 02/04/21 09:34 Ascorbic Acid 500 Mg Tablet PO 500 mg DAILY JOVI Administration Aspirin 81 mg 02/04/21 09:00 02/04/21 09:34 Aspirin Enteric Coated 81 Mg Tablet. PO 81 mg DAILY JOVI Administration Atorvastatin Calcium 40 mg 02/03/21 22:16 02/03/21 22:56 Atorvastatin Calcium 40 Mg Tablet PO Not Given BEDTIME JOVI Benztropine Mesylate 0.5 mg 02/03/21 22:16 02/04/21 09:34 Benztropine Mesylate 0.5 Mg Tablet PO 0.5 mg BID JOVI Administration Bisacodyl 5 mg 02/03/21 22:16 Bisacodyl 5 Mg Tablet.Dr PO Q24H PRN Constipation Bisacodyl 10 mg 02/03/21 22:16 Bisacodyl 10 Mg Supp.Rect CA DAILY PRN Constipation Docusate Sodium 100 mg 02/03/21 22:16 02/04/21 09:34 Docusate Sodium 100 Mg Capsule PO 100 mg BID JOVI Administration Enoxaparin Sodium 40 mg 02/03/21 23:00 02/03/21 23:55 Enoxaparin Sodium 40 Mg/0.4 Ml Syringe SUBCUT 40 mg Q24H JOVI Administration Dextrose/Sodium Chloride 1,000 mls @ 75 mls/hr 02/03/21 16:30 02/04/21 09:33 D51/2ns IVCONT 02/04/21 18:01 75 mls/hr .[id number] [facility] Administration Insulin Human Lispro 0 unit 02/04/21 00:30 02/04/21 11:30 Insulin Lispro 100 Unit/Ml 3 Ml Vial SUBCUT Not Given QIDACHS [facility] Protocol Magnesium Hydroxide 30 ml 02/03/21 22:16 Milk Of Magnesia 30 Ml Oral.Susp PO DAILY PRN Constipation Magnesium Oxide 400 mg 02/03/21 22:16 02/04/21 14:20 Magnesium Oxide 400 Mg Tablet PO 400 mg TID [facility] Administration Metoprolol Tartrate 25 mg 02/03/21 22:16 02/04/21 09:34 Metoprolol Tartrate 25 Mg Tablet PO 25 mg BID [facility] Administration Protocol Multivitamins/Vitamin C 1 tab 02/04/21 09:00 02/04/21 09:34 Multivitamin Tablet PO 1 tab DAILY [facility] Administration Pharmacy Consult 1 each 02/03/21 13:39 Consult Rx Perform Med Rec MISCELLANE ONCE PRN Consult order Sodium Chloride 3 ml 02/04/21 00:00 02/04/21 09:34 0.9 % Sodium Chloride Flush 3 Ml Syringe IVFLUSH 3 ml QSHIFT [facility] Administration Home Medications Medication Instructions Recorded Confirmed Last Taken Type acetaminophen [Tylenol] 650 mg PO Q4H PRN 02/03/21 02/03/21 Unknown History alum-mag hydroxide-simeth [Maalox] 30 ml PO Q6H PRN 02/03/21 02/03/21 Unknown History ascorbic acid (vitamin C) 500 mg PO DAILY 02/03/21 02/03/21 Unknown History aspirin [Aspirin Low Dose] 81 mg PO DAILY 02/03/21 02/03/21 Unknown History atorvastatin 40 mg PO BEDTIME 02/03/21 02/03/21 Unknown History benztropine 0.5 mg PO BID 02/03/21 02/03/21 Unknown History betamethasone dipropionate 1 appl TOPICAL BID 02/03/21 02/03/21 Unknown History bisacodyl 5 mg PO Q24H PRN 02/03/21 02/03/21 Unknown History bisacodyl 10 mg CA DAILY PRN 02/03/21 02/03/21 Unknown History divalproex [Depakote] 1,000 mg PO DAILY 02/03/21 02/03/21 Unknown History divalproex [Depakote] 1,500 mg PO BEDTIME 02/03/21 02/03/21 Unknown History docusate sodium [Colace] 100 mg PO BID 02/03/21 02/03/21 Unknown History ferrous sulfate [Feosol] 325 mg PO DAILY 02/03/21 02/03/21 Unknown History furosemide [Lasix] 40 mg PO DAILY 02/03/21 02/03/21 Unknown History insulin glargine [Lantus U-100 56 unit SUBCUT BEDTIME 02/03/21 02/03/21 Unknown History Insulin] magnesium hydroxide [Milk of 30 ml PO DAILY PRN 02/03/21 02/03/21 Unknown History Magnesia] magnesium oxide 400 mg PO TID 02/03/21 02/03/21 Unknown History metformin 1,000 mg PO BID 02/03/21 02/03/21 Unknown History metoprolol tartrate 25 mg PO BID 02/03/21 02/03/21 Unknown History multivitamin 1 tab PO DAILY 02/03/21 02/03/21 Unknown History olanzapine 10 mg PO BEDTIME 02/03/21 02/03/21 Unknown History polyethylene glycol 3350 [Miralax] 17 g PO DAILY 02/03/21 02/03/21 Unknown History tiotropium bromide [Spiriva 2 puff INHALATION DAILY 02/03/21 02/03/21 Unknown History Respimat] Physical Exam Vital Signs and Narrative: Vital Signs: Last Vital Signs Temp 98 F 02/04/21 11:12 Pulse 76 02/04/21 11:12 Resp 22 H 02/04/21 11:12 BP 106/75 02/04/21 11:12 Pulse Ox 97 02/04/21 11:12 Body Mass Index 33.8 General: obtunded, responding to sternal rub only HEENT: atraumatic Neck: normal to visual inspection CVS: S1, S2, RRR, 2+ edema Resp: CTA bilateral Chest: non tender GI: soft, non tender, non distended : no CVA tenderness Skin: no rashes Extremities: 2+ edema Neuro: obtunded Psych: impaired insight Skin: Other: Skin over the buttock area is generally intact except near the gluteal cleft wear on the right side there is a stage II pressure wound. There is a little bit of some dry skin around the areas well Results Labs CBC and Chem 7: 02/04/21 05:49 02/04/21 05:49 Labs: Laboratory Results - last 24 hr 02/03/21 02/03/21 02/03/21 13:32 14:13 14:13 MCV MCH MCHC RDW Plt Count MPV Absolute Nucleated RBC Nucleated RBC % (auto) Anion Gap 13 Estim Creat Clear Calc 121.8 Estimated GFR > 60 POC Glucose 103 Random Glucose 88 Calcium 9.2 D Magnesium 2.0 Total Bilirubin 0.4 Direct Bilirubin 0.2 AST 42 H D ALT 18 Alkaline Phosphatase 77 D Troponin I High Sens 8.5 B-Natriuretic Peptide 32 Total Protein 7.3 D Albumin 3.5 D Urine Color Urine Appearance Urine pH Ur Specific [place] Urine Protein Urine Glucose (UA) Urine Ketones Urine Blood Urine Nitrite Ur Leukocyte Esterase Urine RBC Urine WBC Ur Squamous Epith Cells Urine Bacteria Urine Opiates Screen Ur Barbiturates Screen Valproic Acid Ur Phencyclidine Scrn Ur Amphetamines Screen U Benzodiazepines Scrn Urine Cocaine Screen U Marijuana (THC) Screen COVID-19 (JULIO) COVID-19 Clin Com 02/03/21 02/03/21 02/03/21 14:13 14:44 15:12 MCV MCH MCHC RDW Plt Count MPV Absolute Nucleated RBC Nucleated RBC % (auto) Anion Gap Estim Creat Clear Calc Estimated GFR POC Glucose 66 186 H Random Glucose Calcium Magnesium Total Bilirubin Direct Bilirubin AST ALT Alkaline Phosphatase Troponin I High Sens B-Natriuretic Peptide Total Protein Albumin Urine Color Urine Appearance Urine pH Ur Specific [place] Urine Protein Urine Glucose (UA) Urine Ketones Urine Blood Urine Nitrite Ur Leukocyte Esterase Urine RBC Urine WBC Ur Squamous Epith Cells Urine Bacteria Urine Opiates Screen Ur Barbiturates Screen Valproic Acid Ur Phencyclidine Scrn Ur Amphetamines Screen U Benzodiazepines Scrn Urine Cocaine Screen U Marijuana (THC) Screen COVID-19 (JULIO) Negative COVID-19 Clin Com See Note 02/03/21 02/03/21 02/03/21 15:33 15:33 16:02 MCV MCH MCHC RDW Plt Count MPV Absolute Nucleated RBC Nucleated RBC % (auto) Anion Gap Estim Creat Clear Calc Estimated GFR POC Glucose 106 Random Glucose Calcium Magnesium Total Bilirubin Direct Bilirubin AST ALT Alkaline Phosphatase Troponin I High Sens B-Natriuretic Peptide Total Protein Albumin Urine Color DARK YELLOW Urine Appearance CLEAR Urine pH 7.0 Ur Specific [place] 1.020 Urine Protein 2+ H Urine Glucose (UA) NEG Urine Ketones 15 Urine Blood NEG Urine Nitrite NEG Ur Leukocyte Esterase NEG Urine RBC 0 Urine WBC 0-2 Ur Squamous Epith Cells 1+ Urine Bacteria NONE Urine Opiates Screen Not Detected Ur Barbiturates Screen Not Detected Valproic Acid Ur Phencyclidine Scrn Not Detected Ur Amphetamines Screen Not Detected U Benzodiazepines Scrn Not Detected Urine Cocaine Screen Not Detected U Marijuana (THC) Screen Not Detected COVID-19 (JULIO) COVID-[employer] Com 02/03/21 02/03/21 02/04/21 18:25 22:34 05:49 MCV 78.5 L MCH 24.8 L MCHC 31.6 RDW 15.0 Plt Count 282 MPV 10.4 Absolute Nucleated RBC 0.000 Nucleated RBC % (auto) 0.0 Anion Gap Estim Creat Clear Calc Estimated GFR POC Glucose 96 Random Glucose Calcium Magnesium Total Bilirubin Direct Bilirubin AST ALT Alkaline Phosphatase Troponin I High Sens 5.0 B-Natriuretic Peptide Total Protein Albumin Urine Color Urine Appearance Urine pH Ur Specific [place] Urine Protein Urine Glucose (UA) Urine Ketones Urine Blood Urine Nitrite Ur Leukocyte Esterase Urine RBC Urine WBC Ur Squamous Epith Cells Urine Bacteria Urine Opiates Screen Ur Barbiturates Screen Valproic Acid Ur Phencyclidine Scrn Ur Amphetamines Screen U Benzodiazepines Scrn Urine Cocaine Screen U Marijuana (THC) Screen COVID-19 (JULIO) COVID-19 [employer] Com 02/04/21 02/04/21 02/04/21 05:49 07:10 08:58 MCV MCH MCHC RDW Plt Count MPV Absolute Nucleated RBC Nucleated RBC % (auto) Anion Gap 13 Estim Creat Clear Calc 159.6 Estimated GFR > 60 POC Glucose 123 H Random Glucose 114 Calcium 8.6 D Magnesium Total Bilirubin Direct Bilirubin AST ALT Alkaline Phosphatase Troponin I High Sens B-Natriuretic Peptide Total Protein Albumin Urine Color Urine Appearance Urine pH Ur Specific [place] Urine Protein Urine Glucose (UA) Urine Ketones Urine Blood Urine Nitrite Ur Leukocyte Esterase Urine RBC Urine WBC Ur Squamous Epith Cells Urine Bacteria Urine Opiates Screen Ur Barbiturates Screen Valproic Acid 24.6 L Ur Phencyclidine Scrn Ur Amphetamines Screen U Benzodiazepines Scrn Urine Cocaine Screen U Marijuana (THC) Screen COVID-19 (JULIO) COVID-19 [employer] Com 02/04/21 11:12 MCV MCH MCHC RDW Plt Count MPV Absolute Nucleated RBC Nucleated RBC % (auto) Anion Gap Estim Creat Clear Calc Estimated GFR POC Glucose 127 H Random Glucose Calcium Magnesium Total Bilirubin Direct Bilirubin AST ALT Alkaline Phosphatase Troponin I High Sens B-Natriuretic Peptide Total Protein Albumin Urine Color Urine Appearance Urine pH Ur Specific [place] Urine Protein Urine Glucose (UA) Urine Ketones Urine Blood Urine Nitrite Ur Leukocyte Esterase Urine RBC Urine WBC Ur Squamous Epith Cells Urine Bacteria Urine Opiates Screen Ur Barbiturates Screen Valproic Acid Ur Phencyclidine Scrn Ur Amphetamines Screen U Benzodiazepines Scrn Urine Cocaine Screen U Marijuana (THC) Screen COVID-19 (JULIO) COVID-19 [employer] Com Imaging Radiologist's Impressions: Impressions Head CT 02/03/21 13:39 IMPRESSION: No acute intracranial process seen. Age-related cerebral volume loss. Assessment and Plan (1) Acute encephalopathy: Status: Acute (2) Pressure injury of buttock, stage 2: Start date: 02/03/21 Status: Acute 65M presented with ams toxic metabolic encephalopathy In addition this patient has a pressure injury of the buttocks stage II in a small area about the size of an ankle. Plan is to use zinc oxide over the area and a foam dressing. Offload and reposition with rotation every to 3 hours during the day. Nursing team update
--- NOTE | 2021-02-04 15:40 | MHC.CM.PN ---
Male 65 DX AMS Lives at [facility]. DP is to return when medically cleared. He will transport via BLS. Information has been sent to [facility]. They have been informed of a potential discharge tomorrow. CM will follow.
[2021-02-04 16:19] LABS: Glucose, Whole Blood 167 mg/dL (60-115)
--- NOTE | 2021-02-04 16:50 | HO.PM.IMPN ---
Subjective Subjective Date of Service: 02/04/21 Interval History: the patient was seen and evaluated this morning Laying in bed, looks comfortable and more interactive this morning Was able to mention his name but overall disoriented denies any fever, chills or pain Otherwise goes back to sleep stop answering Physical Exam Vital Signs: Vital Signs: Last Vital Signs Temp 97.8 F 02/04/21 15:32 Pulse 76 02/04/21 15:32 Resp 20 02/04/21 15:32 BP 115/72 02/04/21 15:32 Pulse Ox 94 02/04/21 15:32 Body Mass Index 33.8 Const: Other: Constitutional : Alert upon stimulation but disoriented and falls back to sleep quickly, not in distress Neck : Normal inspection, Supple Cardiovascular : RRR, S1 S2, no lower extremity edema Respiratory : Fair bilateral air entry, no crackles, wheezes or rhonchi Gastrointestinal: soft, lax, Normal bowel sounds, Non tender Skin : Warm/Dry, Stage 2 on right buttock and Stage 3 to medial coccyx Neurological : Alert with stimulation, disoriented, grossly No focal deficit Objective Data Current Medications Generic Name Dose Route Start Last Admin Trade Name Freq PRN Reason Stop Dose Admin Acetaminophen 650 mg 02/03/21 22:16 Acetaminophen 325 Mg Tablet PO Q4H PRN PAIN/ FEVER Ascorbic Acid 500 mg 02/04/21 09:00 02/04/21 09:34 Ascorbic Acid 500 Mg Tablet PO 500 mg DAILY JOVI Administration Aspirin 81 mg 02/04/21 09:00 02/04/21 09:34 Aspirin Enteric Coated 81 Mg Tablet. PO 81 mg DAILY JOVI Administration Atorvastatin Calcium 40 mg 02/03/21 22:16 02/03/21 22:56 Atorvastatin Calcium 40 Mg Tablet PO Not Given BEDTIME JOVI Benztropine Mesylate 0.5 mg 02/03/21 22:16 02/04/21 09:34 Benztropine Mesylate 0.5 Mg Tablet PO 0.5 mg BID JOVI Administration Bisacodyl 5 mg 02/03/21 22:16 Bisacodyl 5 Mg Tablet.Dr PO Q24H PRN Constipation Bisacodyl 10 mg 02/03/21 22:16 Bisacodyl 10 Mg Supp.Rect SD DAILY PRN Constipation Docusate Sodium 100 mg 02/03/21 22:16 02/04/21 09:34 Docusate Sodium 100 Mg Capsule PO 100 mg BID JOVI Administration Enoxaparin Sodium 40 mg 02/03/21 23:00 02/03/21 23:55 Enoxaparin Sodium 40 Mg/0.4 Ml Syringe SUBCUT 40 mg Q24H JOVI Administration Dextrose/Sodium Chloride 1,000 mls @ 75 mls/hr 02/03/21 16:30 02/04/21 09:33 D51/2ns IVCONT 02/04/21 18:01 75 mls/hr .[id number] JOVI Administration Insulin Human Lispro 0 unit 02/04/21 00:30 02/04/21 11:30 Insulin Lispro 100 Unit/Ml 3 Ml Vial SUBCUT Not Given QIDACHS [facility] Protocol Magnesium Hydroxide 30 ml 02/03/21 22:16 Milk Of Magnesia 30 Ml Oral.Susp PO DAILY PRN Constipation Magnesium Oxide 400 mg 02/03/21 22:16 02/04/21 14:20 Magnesium Oxide 400 Mg Tablet PO 400 mg TID JOVI Administration Metoprolol Tartrate 25 mg 02/03/21 22:16 02/04/21 09:34 Metoprolol Tartrate 25 Mg Tablet PO 25 mg BID JOVI Administration Protocol Multivitamins/Vitamin C 1 tab 02/04/21 09:00 02/04/21 09:34 Multivitamin Tablet PO 1 tab DAILY [facility] Administration Pharmacy Consult 1 each 02/03/21 13:39 Consult Rx Perform Med Rec MISCELLANE ONCE PRN Consult order Sodium Chloride 3 ml 02/04/21 00:00 02/04/21 09:34 0.9 % Sodium Chloride Flush 3 Ml Syringe IVFLUSH 3 ml QSHIFT [facility] Administration Zinc Oxide 1 appl 02/04/21 14:53 Zinc Oxide 20% Ointment 28.35 Gm Tube TOPICAL ONCE PRN Rash Protocol Labs CBC & Chem 7: 02/04/21 05:49 02/04/21 05:49 Labs: Laboratory Results - last 24 hr 02/03/21 02/03/21 02/03/21 13:32 14:44 15:33 WBC RBC Hgb Hct MCV MCH MCHC RDW Plt Count MPV Absolute Nucleated RBC Nucleated RBC % (auto) Sodium Potassium Chloride Carbon Dioxide Anion Gap BUN Creatinine Estim Creat Clear Calc Estimated GFR POC Glucose 103 66 Random Glucose Calcium Troponin I High Sens Urine Bacteria NONE Valproic Acid 0602/03/21 02/04/21 18:25 22:34 05:49 WBC 9.4 RBC 5.44 Hgb 13.5 L Hct 42.7 MCV 78.5 L MCH 24.8 L MCHC 31.6 RDW 15.0 Plt Count 282 MPV 10.4 Absolute Nucleated RBC 0.000 Nucleated RBC % (auto) 0.0 Sodium Potassium Chloride Carbon Dioxide Anion Gap BUN Creatinine Estim Creat Clear Calc Estimated GFR POC Glucose 96 Random Glucose Calcium Troponin I High Sens 5.0 Urine Bacteria Valproic Acid 02/04/21 02/04/21 02/04/21 05:49 07:10 08:58 WBC RBC Hgb Hct MCV MCH MCHC RDW Plt Count MPV Absolute Nucleated RBC Nucleated RBC % (auto) Sodium 137 Potassium 4.0 Chloride 100 Carbon Dioxide 28 Anion Gap 13 BUN 16 Creatinine 0.58 Estim Creat Clear Calc 159.6 Estimated GFR > 60 POC Glucose 123 H Random Glucose 114 Calcium 8.6 D Troponin I High Sens Urine Bacteria Valproic Acid 24.6 L 02/04/21 02/04/21 11:12 16:08 WBC RBC Hgb Hct MCV MCH MCHC RDW Plt Count MPV Absolute Nucleated RBC Nucleated RBC % (auto) Sodium Potassium Chloride Carbon Dioxide Anion Gap BUN Creatinine Estim Creat Clear Calc Estimated GFR POC Glucose 127 H 167 H Random Glucose Calcium Troponin I High Sens Urine Bacteria Valproic Acid Microbiology Microbiology Results: Microbiology 02/03/21 14:17 Blood Culture - Preliminary Blood - Venous No growth after 24 hours. 02/03/21 14:13 Blood Culture - Preliminary Blood - Venous No growth after 24 hours. Quality Stroke Does the patient have a stroke diagnosis?: No VTE Prior VTE?: No VTE Risk Level:: Medical - moderate - high VTE Device Contraindication: Treatment Not Indicated VTE Drug Contraindication: N/A - Med Ordered Assessment and Plan (1) Acute encephalopathy: Status: Acute Assessment and Plan: 65M presented with ams toxic metabolic encephalopathy Seems to be doing little bit better DDx: hypoglycemia , drugs, infection ? monitor fingers sticks, hold lantus, on D5 1/2NS, would have expected response to d50 hold opiates and depakote (mood stabilzier not for seizures), zyprexa Pending vaklproate level No evidence of infection, hold off on anitiobitcs for now, follow up cultures chronic hypoxic repsiraotry failure due to copd stable CAD asa, statin DM hold lantus for hypoglycemia, can use sliding scale dvt prophylaxis lovenox The
[2021-02-04] MEDS: Insulin Lispro 100 UNIT/ML 3 ML VIAL SUBCUT ×2 (17:00→20:31)
[2021-02-04 20:23] LABS: Glucose, Whole Blood 180 mg/dL (60-115)
[2021-02-04] MEDS: Atorvastatin Calcium 40 MG TABLET PO (20:31)
[2021-02-04] MEDS: Enoxaparin Sodium 40 MG/0.4 ML SYRINGE SUBCUT (22:28)
[2021-02-05] MEDS: 0.9 % Sodium Chloride Flush 3 ML SYRINGE IVFLUSH ×2 (00:59→08:26)
[2021-02-05 02:35] VITALS: TEMP 37.8
[2021-02-05 04:00] VITALS: BP 126/70; PULSE 80; RESP 18; TEMP 36.3; O2SAT 98
[2021-02-05 07:01] LABS: Basophils Percent Auto 0.6 % (0-2); Eosinophils Absolute Auto 0.3 X10*3/uL (0.0-0.4); Eosinophils Percent Auto 2.7 % (0-4); Hematocrit 39.6 % (42-52); Hemoglobin 12.5 g/dl (14.0-18.0); Imm Gran Abs Auto 0.04 X10*3/uL (0.00-0.03); Imm Gran Pct Auto 0.4 % (0.0-0.4); Lymphocytes Absolute Auto 2.3 X10*3/uL (1.2-4.9); Mean Corpuscular HGB Conc 31.6 g/dl (31.0-36.0); Mean Platelet Volume 11.4 fL (9.4-12.4); Monocytes Absolute Auto 1.7 X10*3/uL (0.1-1.2); Monocytes Percent Auto 16.1 % (2-11); Neutrophils Absolute Auto 6.4 X10*3/uL (2.0-8.3); Neutrophils Percent Auto 59.2 % (45-73); Platelet Count 304 X10*3/uL (160-400); Red Blood Count 5.01 X10*6/uL (4.60-5.80); Red Cell Distribution Width 14.6 % (11.0-16.0); White Blood Count 10.8 X10*3/uL (4.8-10.8)
[2021-02-05 07:02] LABS: Basophils Absolute Auto 0.1 X10*3/uL (0.0-0.2); MANUAL DIFF FLAG SCAN; SCAN SMEAR FLAG 1
[2021-02-05 07:05] VITALS: BP 135/75; PULSE 73; RESP 18; TEMP 36.6; O2SAT 97
[2021-02-05 07:10] LABS: Anion Gap 11 (12-20); Blood Urea Nitrogen 12 mg/dL (9-16); Calcium 8.5 mg/dL (8.4-10.2); Carbon Dioxide 30 mmol/L (22-29); Chloride 98 mmol/L (96-108); Creatinine Clr Calc Pharmacy 156.9; Estimated Glomerular Filt Rate > 60; Glucose Random 143 mg/dL (60-115); Potassium 4.3 mmol/L (3.3-5.1); Sodium 135 mmol/L (135-145)
[2021-02-05 07:19] LABS: Glucose, Whole Blood 149 mg/dL (60-115)
[2021-02-05 07:34] LABS: SLIDE REVIEW VERIFIED
[2021-02-05] MEDS: Benztropine Mesylate 0.5 MG TABLET PO (08:23)
[2021-02-05] MEDS: Magnesium Oxide 400 MG TABLET PO (08:23)
[2021-02-05] MEDS: Aspirin Enteric Coated 81 MG TABLET.DR PO (08:23)
[2021-02-05] MEDS: Docusate Sodium 100 MG CAPSULE PO (08:23)
[2021-02-05] MEDS: Furosemide 40 MG TABLET PO (08:23)
[2021-02-05 08:24] VITALS: BP 135/75; PULSE 73
[2021-02-05] MEDS: Metoprolol Tartrate 25 MG TABLET PO (08:24)
[2021-02-05] MEDS: Multivitamin TABLET 1 TAB PO (08:24)
[2021-02-05] MEDS: Ascorbic Acid 500 MG TABLET PO (08:24)
[2021-02-05 08:41] VITALS: PULSE 80; RESP 16; O2SAT 94
--- NOTE | 2021-02-05 09:07 | MHC.CM.PN ---
Male 65 DX AMS will be discharged today. BLS will transport. Transportation has been booked as a will call @ the request of [place]. Information has been sent this am. A rapid Covid test has been ordered, results are pending. CM will follow for DC needs. DC info and Covid result will be sent once they are available.
[2021-02-05 09:36] LABS: COVID-19 Test Negative (Negative)
--- NOTE | 2021-02-05 11:12 | P.DS_ITS ---
DS: Providers Provider Date of Service: 02/05/21 Date of admission: 02/03/21 17:26 Primary care physician: Erinn Keane MD Consults: 02/03/21 23:02 Consult to Wound Care Routine Consulting Provider: Verito Thornton Reason for consultation: pressure injury stage 2 DS: Diagnosis Discharge Diagnosis (1) Acute encephalopathy: Status: Acute (2) Pressure injury of buttock, stage 2: Status: Acute (3) Hypoglycemia: Status: Acute DS: Medications Discharge Medications Home Medications: Home Medications Medication Instructions Recorded Confirmed Spiriva Respimat 2 puff INHALATION DAILY 02/03/21 02/03/21 acetaminophen [Tylenol] 650 mg PO Q4H PRN 02/03/21 02/03/21 alum-mag hydroxide-simeth 30 ml PO Q6H PRN 02/03/21 02/03/21 ascorbic acid (vitamin C) 500 mg PO DAILY 02/03/21 02/03/21 aspirin [Aspirin Low Dose] 81 mg PO DAILY 02/03/21 02/03/21 atorvastatin 40 mg PO BEDTIME 02/03/21 02/03/21 benztropine 0.5 mg PO BID 02/03/21 02/03/21 betamethasone dipropionate 1 appl TOPICAL BID 02/03/21 02/03/21 bisacodyl 5 mg PO Q24H PRN 02/03/21 02/03/21 bisacodyl 10 mg LA DAILY PRN 02/03/21 02/03/21 docusate sodium [Colace] 100 mg PO BID 02/03/21 02/03/21 ferrous sulfate [Feosol] 325 mg PO DAILY 02/03/21 02/03/21 furosemide [Lasix] 40 mg PO DAILY 02/03/21 02/03/21 magnesium hydroxide [Milk of 30 ml PO DAILY PRN 02/03/21 02/03/21 Magnesia] magnesium oxide 400 mg PO TID 02/03/21 02/03/21 metformin 1,000 mg PO BID 02/03/21 02/03/21 metoprolol tartrate 25 mg PO BID 02/03/21 02/03/21 multivitamin 1 tab PO DAILY 02/03/21 02/03/21 polyethylene glycol 3350 [Miralax] 17 g PO DAILY 02/03/21 02/03/21 Previous Rx's Medication Instructions Recorded Lantus U-100 Insulin 15 unit SUBCUT BEDTIME #0 ml 02/05/21 divalproex [Depakote] 1,000 mg PO BEDTIME #0 tab 02/05/21 olanzapine 10 mg PO BEDTIME #0 tab 02/05/21 zinc oxide 1 appl TOPICAL BID-TID 14 Days g 02/05/21 DS: Summary Hospital Course Hospital Course: Admission note HPI 65M sent in from [facility] for [facility]. patient noted to be stupourous and not eating muc h. his glucose noted to be 50. was given D50 and glucagon. in ED glucose 66, still very lethargic, responding to sternal rub, but then goes back to sleep. no co2 retention, urine, CTH, and cxr unremarkable. patient himself cannot give any history. of note patient had recent fall and spinal fracture for which he had been on oxycodone, he was given narcan in ED in case this was related to opiates, however, he did not respond. Hospital course The patient was admitted for evaluation of altered mentation. No clear infection was noted at time of admission. Thoughts were if related to hypoglycemia or medications. The patient was noted to low glucose level in 60s. Lantus was held and he was treated with IV dextrose water with good response. His blood sugar readings r emained in the 100s. Sliding scale insulin was used. The patient mentation improved significantly over the course of 2 days. The plan is to decrease his Lantus dose at time of discharge. His home medications were also concerning for his presentation as both Depakote and Zyprexa were held. Depakote is mainly used for mood stabilizer not for seizures. Valproic acid level was noticed to be low. Withholding medications and treating hypoglycemia the patient mentation improved significantly and he was able to eat and talk. Evaluated by wound care team for stage II sacral ulcer. Recommendations for local wound care any usage of zinc oxide. Discharge plan The dose of Depakote was decreased to 1 g at bedtime Zyprexa remains at 10 mg at bedtime but would consider decreasing it to 5 after discussing with his psychiatrist Insulin Lantus dose decreased to 15 units from 54. Will need close monitoring and check ups of his blood sugar. Continue local care and usage of zinc oxide for his sacral ulcer Time Spent with Patient Time attestation: Total time spent providing and/or coordinating discharge services: Discharge coordination time: Greater than 30 minutes Quality: Stroke Does the patient have a stroke diagnosis?: No Physical Exam Vital Signs: Vital Signs: Last Vital Signs Temp 97.9 F 02/05/21 07:05 Pulse 80 02/05/21 08:41 Resp 16 02/05/21 08:41 BP 135/75 02/05/21 08:24 Pulse Ox 94 02/05/21 08:41 Body Mass Index 33.8 Const: Other: Constitutional :more Alert and interactive. disoriented, not in distress Neck : Normal inspection, Supple Cardiovascular : RRR, S1 S2, no lower extremity edema Respiratory : Fair bilateral air entry, no crackles, wheezes or rhonchi Gastrointestinal: soft, lax, Normal bowel sounds, Non tender Skin : Warm/Dry, Stage 2 on right buttock and Stage 3 to medial coccyx covered with dressing Neurological : Alert , disoriented, grossly No focal deficit DS: Data Data Completed and Pending Labs on day of discharge: Laboratory Results - last 24 hr 02/04/21 02/04/21 02/04/21 11:12 16:08 19:51 WBC RBC Hgb Hct MCV MCH MCHC RDW Plt Count MPV Immature Gran % (Auto) Neut % (Auto) Lymph % (Auto) [place] % (Auto) Eos % (Auto) Baso % (Auto) Lymph # (Auto) [place] # (Auto) Eos # (Auto) Baso # (Auto) Abs Immat Gran (auto) Absolute Neuts (auto) Absolute Nucleated RBC Nucleated RBC % (auto) Smear Tech's Comments Sodium Potassium Chloride Carbon Dioxide Anion Gap BUN Creatinine Estim Creat Clear Calc Estimated GFR POC Glucose 127 H 167 H 180 H Random Glucose Calcium COVID-19 (JULIO) COVID-19 Clin Com 02/05/21 02/05/21 02/05/21 05:14 05:14 07:00 WBC 10.8 RBC 5.01 Hgb 12.5 L Hct 39.6 L MCV 79.0 L MCH 25.0 L MCHC 31.6 RDW 14.6 Plt Count 304 MPV 11.4 Immature Gran % (Auto) 0.4 Neut % (Auto) 59.2 Lymph % (Auto) 21.0 [place] % (Auto) 16.1 H Eos % (Auto) 2.7 Baso % (Auto) 0.6 Lymph # (Auto) 2.3 [place] # (Auto) 1.7 H Eos # (Auto) 0.3 Baso # (Auto) 0.1 Abs Immat Gran (auto) 0.04 H Absolute Neuts (auto) 6.4 Absolute Nucleated RBC 0.000 Nucleated RBC % (auto) 0.0 Smear Tech's Comments VERIFIED Sodium 135 Potassium 4.3 Chloride 98 Carbon Dioxide 30 H Anion Gap 11 L BUN 12 Creatinine 0.59 Estim Creat Clear Calc 156.9 Estimated GFR > 60 POC Glucose 149 H Random Glucose 143 H Calcium 8.5 COVID-19 (JULIO) COVID-19 Clin Com 02/05/21 09:07 WBC RBC Hgb Hct MCV MCH MCHC RDW Plt Count MPV Immature Gran % (Auto) Neut % (Auto) Lymph % (Auto) [place] % (Auto) Eos % (Auto) Baso % (Auto) Lymph # (Auto) [place] # (Auto) Eos # (Auto) Baso # (Auto) Abs Immat Gran (auto) Absolute Neuts (auto) Absolute Nucleated RBC Nucleated RBC % (auto) Smear Tech's Comments Sodium Potassium Chloride Carbon Dioxide Anion Gap BUN Creatinine Estim Creat Clear Calc Estimated GFR POC Glucose Random Glucose Calcium COVID-19 (JULIO) Negative COVID-19 Clin Com See Note Preliminary micro results at discharge 02/03/21 14:17 Blood Culture - Preliminary Blood - Venous No growth after 24 hours. 02/03/21 14:13 Blood Culture - Preliminary Blood - Venous No growth after 24 hours. Discharge Plan Discharge Patient Disposition: [facility] Discharge Diagnosis: Toxic metabolic encephalopathy Hypoglycemia Stage II sacral ulcer Referrals: [place] [Other] - 1 Week (Return to [place] via [facility]) Erinn Keane MD [Primary Care Provider] - 1 Week Discharge Medications: New zinc oxide 20 % Ointment 1 appl topical BID-TID 14 Days RF: 0 Continued multivitamin Tablet 1 tab PO DAILY RF: 0 furosemide [Lasix] 40 mg Tablet 40 mg PO DAILY RF: 0 atorvastatin 40 mg Tablet 40 mg PO BEDTIME RF: 0 acetaminophen [Tylenol] 325 mg Tablet 650 mg PO Q4H PRN (Reason: PAIN/ FEVER) RF: 0 benztropine 0.5 mg Tablet 0.5 mg PO BID RF: 0 aspirin [Aspirin Low Dose] 81 mg Tablet,Delayed Release (Dr/Ec) 81 mg PO DAILY RF: 0 magnesium hydroxide [Milk of Magnesia] 400 mg/5 mL Suspension 30 ml PO DAILY PRN (Reason: Constipation) RF: 0 ascorbic acid (vitamin C) 500 mg Tablet 500 mg PO DAILY RF: 0 bisacodyl 10 mg Suppository 10 mg LA DAILY PRN (Reason: Constipation) RF: 0 ferrous sulfate [Feosol] 325 mg (65 mg iron) Tablet 325 mg PO DAILY RF: 0 metformin 1,000 mg Tablet 1,000 mg PO BID RF: 0 betamethasone dipropionate 0.05 % Cream 1 appl TOPICAL BID RF: 0 docusate sodium [Colace] 100 mg Capsule 100 mg PO BID RF: 0 bisacodyl 5 mg Tablet,Delayed Release (Dr/Ec) 5 mg PO Q24H PRN (Reason: Constipation) RF: 0 alum-mag hydroxide-simeth 200-200-20 mg/5 mL Suspension 30 ml PO Q6H PRN (Reason: Gastric Reflux) RF: 0 polyethylene glycol 3350 [Miralax] 17 gram/dose Powder 17 g PO DAILY RF: 0 metoprolol tartrate 25 mg Tablet 25 mg PO BID RF: 0 Spiriva Respimat 1.25 mcg/actuation Mist 2 puff INHALATION DAILY RF: 0 magnesium oxide 400 mg magnesium Tablet 400 mg PO TID RF: 0 olanzapine 10 mg Tablet 10 mg PO BEDTIME Qty: 0 RF: 0 Changed Lantus U-100 Insulin 100 unit/mL Solution 15 unit SUBCUT BEDTIME Qty: 0 RF: 0 divalproex [Depakote] 500 mg Tablet,Delayed Release (Dr/Ec) 1,000 mg PO BEDTIME Qty: 0 RF: 0 Discontinued divalproex [Depakote] 500 mg Tablet,Delayed Release (Dr/Ec) 1,000 mg PO DAILY RF: 0 Discharge Orders: Discharge Order (Routine); Ordered 02/05/21 Ordered By: Lety Quiñonez Diet: advance to usual diet Activity on Discharge: As tolerated Stand Alone Forms: Patient Portal Discharge page Care Plan Goals: Read below Health Concerns: Read below Plan of Treatment: For evaluation of altered mentation. Patient was noted to have low sugar level and his Lantus dose was held and he was treated with IV fluids with glucose with improvement of his blood sugar readings. Medications were thought to be a reason as well with both Depakote and Zyprexa were held with good response after holding them. No evidence of infection was found Assessment: The dose of Depakote was decreased to 1 g at bedtime Zyprexa remains at 10 mg at bedtime but would consider decreasing it to 5 after discussing with his psychiatrist Insulin Lantus dose decreased to 15 units from 54. Will need close monitoring and check ups of his blood sugar. Continue local care and usage of zinc oxide for his sacral ulcer
[2021-02-05 11:34] VITALS: BP 145/68; PULSE 72; RESP 16; TEMP 36.3; O2SAT 93
== END 2021-02-05 12:14 | disposition skilled nursing facility (03) | DRG 380 ==
LOC: HO.ED 16:35 → HO.EDOVER 17:34 → HO.IMC 18:00
PROVIDERS: Emergency Medicine; Physician Assistant; Admitting Provider Internal Medicine; Emergency Provider Emergency Medicine; PCP Internal Medicine; Visit Provider Student in an Organized Health Care Education/Training Program
DX: E11.649 Type 2 diabetes mellitus with hypoglycemia without coma (principal); L89.312 Pressure ulcer of right buttock, stage 2; G92 Toxic encephalopathy; J96.11 Chronic respiratory failure with hypoxia; K21.9 Gastro-esophageal reflux disease without esophagitis; I25.10 Atherosclerotic heart disease of native coronary artery without angina pectoris; E78.5 Hyperlipidemia, unspecified; Z79.4 Long term (current) use of insulin; Z79.82 Long term (current) use of aspirin; Z79.899 Other long term (current) drug therapy
CPT/HCPCS: 36415; 70450; 71045; 80048; 80076; 80164; 80307; 81001; 82947; 83605; 83735; 83880; 84484; 85025; 85027; 87040; 87635; 93005; 99219; 99285; J1650

== ENCOUNTER 2022-01-08 10:09 | Observation (INO) | payer MEDICAID, SELFPAY ==
[2022-01-08] VITALS (10 sets, daily range): BP systolic 108–131; BP diastolic 49–72; PULSE 90–106; RESP 17–35; TEMP 36.5–37.4; O2SAT 88–97; BMI 39.2
--- NOTE | ~2022-01-08 | XR_ITS ---
EXAMINATION: XR CHEST CLINICAL INFORMATION: Change in mental status. Evaluate for pneumonia. COMPARISON: Chest radiograph dated from 02/03/2021. TECHNIQUE: AP view of the chest was obtained. FINDINGS: Stable prominence of the cardiomediastinal silhouette. Chronic interstitial thickening without new superimposed focal airspace opacities, pleural effusions or pneumothorax. No acute osseous abnormalities. The visualized upper abdomen is within normal limits. XR/XR chest 1V IMPRESSION: Chronic interstitial thickening not significantly changed. No acute cardiopulmonary findings.
--- NOTE | ~2022-01-08 | CT_ITS ---
EXAMINATION: CT HEAD WITHOUT CONTRAST CLINICAL INFORMATION: Change in mental status, rule out intracranial abnormality. COMPARISON: 02/03/[address] scan. TECHNIQUE: Contiguous axial imaging was performed from the skull base to vertex without intravenous administration of contrast. Coronal and sagittal reformatted images were obtained. This CT examination was performed using dose optimization techniques as appropriate, variously including the following: *Automated exposure control *Adjustment of mA and/or kV according to patient size (this includes techniques or standardized protocols for targeted exams where dose is matched to indication/reason for exam; i.e. extremities or head) *Use of iterative reconstruction technique DLP: 722 mGy-cm FINDINGS: There is mild widening of the cortical sulci and associated ventriculomegaly. The lateral ventricles are symmetrical. Mild periventricular microvascular changes are seen. The third and fourth ventricles are in their normal midline position. The basilar and prepontine cisterns are unremarkable. There is no acute intra or extracerebral abnormality. There is no mass effect or midline shift. Sections through the bony calvarium are unremarkable. The orbits are intact. The paranasal sinuses are clear. The mastoid air cells are clear. The brain is noted medially in the external auditory canals bilaterally. CT/CT head/brain wo con IMPRESSION: No acute intracranial pathology.
[2022-01-08] MEDS: 0.9 % Sodium Chloride 1,000 ML 999 ML IV (10:39)
[2022-01-08 10:40] LABS: MANUAL DIFF FLAG NO
[2022-01-08 10:42] LABS: Basophils Percent Auto 0.4 % (0-2); Eosinophils Absolute Auto 0.1 X10*3/uL (0.0-0.4); Eosinophils Percent Auto 0.5 % (0-4); Hematocrit 39.8 % (42.0-52.0); Hemoglobin 12.5 g/dl (14.0-18.0); Imm Gran Abs Auto 0.07 X10*3/uL (0.00-0.03); Imm Gran Pct Auto 0.7 % (0.0-0.4); Lymphocytes Absolute Auto 0.8 X10*3/uL (1.2-4.9); Lymphocytes Percent Auto 7.9 % (20-40); Mean Corpuscular HGB Conc 31.4 g/dl (31.0-36.0); Mean Corpuscular Hemoglobin 24.8 pg (27.0-33.0); Mean Corpuscular Volume 78.8 fL (80.0-98.0); Mean Platelet Volume 10.8 fL (9.4-12.4); Monocytes Absolute Auto 0.9 X10*3/uL (0.1-1.2); Monocytes Percent Auto 8.5 % (2-11); Neutrophils Absolute Auto 8.3 x10*3/uL (2.0-8.3); Platelet Count 228 X10*3/uL (160-400); Red Blood Count 5.05 X10*6/uL (4.60-5.80); Red Cell Distribution Width 15.2 % (11.0-16.0); White Blood Count 10.1 X10*3/uL (4.8-10.8)
[2022-01-08 10:55] LABS: Prothrombin Time 11.6 SEC (9.9-13.0)
[2022-01-08 10:58] LABS: Partial Thromboplastin Time 31.4 SEC (24.1-38.0)
[2022-01-08 10:59] LABS: Alanine Aminotransferase 10 U/L (0-40); Albumin Level 3.7 g/dL (3.5-5.0); Alkaline Phosphatase 85 U/L (39-117); Anion Gap 16 (12-20); Aspartate Amino Transferase 11 U/L (5-37); Bilirubin Total 0.3 mg/dL (0.0-1.0); Blood Urea Nitrogen 17 mg/dL (9-16); Calcium 9.1 mg/dL (8.4-10.2); Carbon Dioxide 25 mmol/L (22-29); Chloride 97 mmol/L (96-108); Creatinine Clr Calc Pharmacy 104.2; Estimated Glomerular Filt Rate > 60; Glucose Random 309 mg/dL (60-115); Lipase 70 U/L (8-78); Potassium 4.4 mmol/L (3.3-5.1); Sodium 134 mmol/L (135-145); Total Protein 7.5 g/dL (6.5-8.0)
[2022-01-08 10:59] LABS: COVID-19 Test Negative (Negative)
[2022-01-08 11:07] LABS: Influenza A Negative (Negative); Influenza B2 Negative (Negative)
--- NOTE | 2022-01-08 11:34 | ED.AMS ---
HPI - Altered Mental Status General Chief Complaint: Altered Mental Status Stated Complaint: altered mental status Time Seen by Provider: 01/08/22 10:21 Source: patient Mode of arrival: EMS Limitations: language barrier ([place] speaking only) History of Present Illness HPI narrative: 66-year-old male who was sent in from his long-term care facility for altered mental status. The information came from the paramedics. The patient was found at 07:00 to be altered. He was not moving, he was incontinent of urine, he may have been having tremors. The patient is apparently alert and ambulatory and independent at his baseline. The patient is [place]ian-speaking only. When I spoke to him with an translator/interpreter, he was able to tell me his name. He knew that he was at [facility]. He could not tell me the year. He told me that he did not feel well this morning but is feeling better. He had no complaints. On review of systems he stated that he was short of breath. He did note urinary frequency but no dysuria. The patient was hospitalized here on 02/03/2021 till 02/05/2021 for altered mental status which was felt to be male factorial secondary to low glucose and possible medications. Related Data Home Medications Medication Instructions Recorded Confirmed acetaminophen 325 mg tablet 650 mg PO Q4H PRN 02/03/21 01/08/22 (Tylenol) aluminum-mag hydroxide-simethicone 30 ml PO Q6H PRN 02/03/21 01/08/22 200 mg-200 mg-20 mg/5 mL oral susp aspirin 81 mg tablet,delayed 81 mg PO DAILY 02/03/21 01/08/22 release (Aspirin Low Dose) atorvastatin 40 mg tablet 40 mg PO BEDTIME 02/03/21 01/08/22 bisacodyl 10 mg rectal suppository 10 mg VA DAILY PRN 02/03/21 01/08/22 bisacodyl 5 mg tablet,delayed 5 mg PO Q24H PRN 02/03/21 01/08/22 release docusate sodium 100 mg capsule 200 mg PO BEDTIME 02/03/21 01/08/22 (Colace) furosemide 40 mg tablet (Lasix) 40 mg PO DAILY 02/03/21 01/08/22 magnesium hydroxide 400 mg/5 mL 30 ml PO DAILY PRN 02/03/21 01/08/22 oral suspension (Milk of Magnesia) magnesium oxide 400 mg PO TID 02/03/21 01/08/22 metformin 1,000 mg tablet 1,000 mg PO BID 02/03/21 01/08/22 polyethylene glycol 3350 17 8.5 g PO DAILY 02/03/21 01/08/22 gram/dose oral powder (Miralax) tiotropium bromide 1.25 2 puff INHALATION DAILY 02/03/21 01/08/22 mcg/actuation mist for inhalation (Spiriva Respimat) insulin detemir U-100 100 unit/mL 24 unit SUBCUT BEDTIME 01/08/22 01/08/22 subcutaneous solution (Levemir U-100 Insulin) metoprolol succinate 25 mg 25 mg PO DAILY 01/08/22 01/08/22 tablet,extended release 24 hr olanzapine 10 mg tablet 10 mg PO BID 01/08/22 01/08/22 Previous Rx's Medication Instructions Recorded divalproex 500 mg tablet,delayed 1,000 mg PO BEDTIME #0 tab 02/05/21 release (Depakote) Allergies Allergy/AdvReac Type Severity Reaction Status Date / Time Penicillins [PCN] Allergy Unknown Verified 01/08/22 10:26 Review of Systems Review of Systems: Yes all other systems are reviewed and are negative PMFSH Past Medical History Medical History Alcohol dependence in remission Anemia Antisocial personality disorder Blind right eye Cataract, right eye CHF (congestive heart failure) Chronic respiratory failure with hypoxia Cocaine abuse in remission COPD (chronic obstructive pulmonary disease) GERD (gastroesophageal reflux disease) HTN (hypertension) Hyperlipidemia Psoriasis Pulmonary fibrosis Vitamin D deficiency Social History Social History Household Members: None Housing: Long Term Unable to assess alcohol history related to: Unable to respond Alcohol intake: unknown Patient Tobacco Use Status: Tobacco use Unknown Advance Directives: No Advance Directives Information Provided: No service: No Current occupational status: disabled Physical Exam ED Vital Signs: Vital Signs - 24 hr 01/08/22 10:20 01/08/22 10:37 01/08/22 10:38 Temperature 99.4 F Pulse Rate 103 H 103 H Respiratory Rate 20 30 H Blood Pressure 123/56 L Pulse Oximetry 93 92 97 05/20/22 11:00 01/08/22 11:25 01/08/22 14:00 Temperature Pulse Rate 102 H 102 H 102 H Respiratory Rate 35 H 28 H Blood Pressure 119/68 108/69 131/49 L Pulse Oximetry 92 93 93 01/08/22 14:22 Temperature Pulse Rate 106 H Respiratory Rate 19 Blood Pressure 116/60 Pulse Oximetry 92 BMI result Body Mass Index 39.2 Const Other: Awake, alert, male patient, he is oriented to person and place, he does not appear to be in distress Orientation/consciousness: oriented to person and oriented to place [facility] Head: Yes normal to inspection, Yes normocephalic and Yes atraumatic Ears: external ears normal General nose exam: Normal external nose present Face and sinus: Yes normal facial exam Mouth: Normal oral and palatal mucosa present Throat: Yes posterior oropharynx normal Eyes General: appearance normal, both eyes and all related structures Pupils: Equal, round and reactive pupils present Neck Neck: Yes normal visual inspection, Yes no lymphadenopathy, Yes trachea midline and Yes supple Chest Chest palpation & inspection: normal inspection of the chest and normal palpation of entire chest wall Resp Effort & Inspection: normal respiratory effort and able to speak in complete sentences Auscultation: clear to auscultation bilaterally Cardio Rate: regular rate Rhythm: regular rhythm Heart sounds: S1 normal heart sound present, S2 normal heart sound present and no murmurs GI Inspection: Yes normal to inspection Palpation (GI): Soft to palpation, nontender and no guarding Auscultation: normal bowel sounds General: Yes no CVA tenderness Back/Spine/Pelvis Back: no CVA tenderness Skin General skin exam: no rashes or lesions noted Neuro General: oriented to person and oriented to place Cranial nerves: Yes CN's II-XII intact bilaterally (Except Right eye blind) and Yes Equal, round and reactive pupils present Cognition (Neuro): normal cognition Motor exam (neuro): 5/5 motor strength present throughout and Other motor observations present (He can move all his extremities symmetrically) Extrem General: Yes normal to inspection Psych Appearance: grossly normal Speech and movement: Normal speech and movement present Affect: normal affect Attitude: cooperative Course Course Course Narrative: 66-year-old male who was sent to the emergency department from his care facility for altered mental status this morning. On presentation to the emergency department, the patient is awake and alert, he is oriented to person and place. He was able answer questions appropriately. He stated that he was not feeling well earlier but he is feeling better. His review of systems was positive for shortness of breath and urinary frequency. Paramedics report that patient was altered this morning with incontinence of urine which is unusual for him. The differential includes was not limited to stroke, toxic metabolic disorder, infection, seizure. Laboratory evaluation and CT scan of the brain were ordered 1545: Laboratory evaluation: CBC was normal. CMP was normal. Lactate was elevated at 4.0. Repeat lactate after 2 L of normal saline was elevated at 4.9. 19 and influenza were negative. Urinalysis was negative. Urine tox screen was negative. Radiology evaluation: The patient's CT scan of the brain revealed no acute intracranial pathology, the patient does have periventricular microvascular changes. Chest x-ray revealed chronic interstitial thickening which was not significantly changed from the previous x-ray At this time I do not have a clear cause for the patient's altered mental status, it is possible that he may have had a stroke but we cannot see on the CT scan. Also, given his elevated lactic acid is possible he may be having seizures. Also, he is on metformin and this could be another cause for his elevated lactic acid he I do not think that the patient has sepsis. Patientpatient had difficulty swallowing water and I did order a swallowing study.. The patient did have blood cultures x2 and he was treated with ceftriaxone 1 g IV. ED staff attempted to walk the patient, he had difficulty standing and when he gait he had a very slow and unsteady. I will discuss admission with the covering hospitalist for further evaluation of possible stroke. 16 15: I did discuss the patient's presentation with the covering hospitalist, Dr. Quiñonez and the patient will be admitted for further treatment and diagnostic workup MDM - Altered Mental Status Lab Data Attestation: I reviewed the patient's lab results. Result diagrams: 01/08/22 10:35 01/08/22 10:35 Labs: Lab Results 01/08/22 01/08/22 01/08/22 Range/Units 10:30 10:30 10:35 WBC 10.1 (4.8-10.8) X10*3/uL RBC 5.05 (4.60-5.80) X10*6/uL Hgb 12.5 L (14.0-18.0) g/dl Hct 39.8 L (42.0-52.0) % MCV 78.8 L (80.0-98.0) fL MCH 24.8 L (27.0-33.0) pg MCHC 31.4 (31.0-36.0) g/dl RDW 15.2 (11.0-16.0) % Plt Count 228 (160-400) X10*3/uL MPV 10.8 (9.4-12.4) fL Immature Gran % (Auto) 0.7 H (0.0-0.4) % Neut % (Auto) 82.0 H (45-73) % Lymph % (Auto) 7.9 L (20-40) % [place] % (Auto) 8.5 (2-11) % Eos % (Auto) 0.5 (0-4) % Baso % (Auto) 0.4 (0-2) % Lymph # (Auto) 0.8 L (1.2-4.9) X10*3/uL [place] # (Auto) 0.9 (0.1-1.2) X10*3/uL Eos # (Auto) 0.1 (0.0-0.4) X10*3/uL Baso # (Auto) 0.0 (0.0-0.2) X10*3/uL Abs Immat Gran (auto) 0.07 H (0.00-0.03) X10*3/uL Absolute Neuts (auto) 8.3 (2.0-8.3) x10*3/uL Absolute Nucleated RBC 0.000 (0.0-0.012) X10*3/uL Nucleated RBC % (auto) 0.0 (0.0-0.2) /100WBC PT (9.9-13.0) SEC INR (0.9-1.1) APTT (24.1-38.0) SEC Sodium (135-145) mmol/L Potassium (3.3-5.1) mmol/L Chloride (96-108) mmol/L Carbon Dioxide (22-29) mmol/L Anion Gap (12-20) BUN (9-16) mg/dL Creatinine (0.5-1.4) mg/dL Estim Creat Clear Calc Estimated GFR Random Glucose (60-115) mg/dL Lactic Acid (0.5-2.0) mmol/L Lactic Acid F/U @ 2Hr (0.5-2.0) mmol/L Calcium (8.4-10.2) mg/dL Total Bilirubin (0.0-1.0) mg/dL AST (5-37) U/L ALT (0-40) U/L Alkaline Phosphatase (39-117) U/L Troponin I High Sens (<3.5-35.0) ng/L Total Protein (6.5-8.0) g/dL Albumin (3.5-5.0) g/dL Lipase (8-78) U/L Urine Color Urine Appearance Urine pH (5.0-8.0) Ur Specific [place] (1.005-1.025) Urine Protein (NEG-TRACE) MG/DL Urine Glucose (UA) (NEG) MG/DL Urine Ketones (NEG) MG/DL Urine Blood (NEG) Urine Nitrite (NEG) Ur Leukocyte Esterase (NEG) Urine Opiates Screen (Not Detect) Urine Fentanyl Screen (Not Detect) Ur Barbiturates Screen (Not Detect) Ur Phencyclidine Scrn (Not Detect) Ur Amphetamines Screen (Not Detect) U Benzodiazepines Scrn (Not Detect) Urine Cocaine Screen (Not Detect) U Marijuana (THC) Screen (Not Detect) COVID-19 (JULIO) Negative (Negative) COVID-19 Clin Com See Note Influenza Type A (VIVEK) Negative (Negative) Influenza Type B (VIVEK) Negative (Negative) Influenza A & B Note See Note 01/08/22 01/08/22 01/08/22 Range/Units 10:35 10:35 10:35 WBC (4.8-10.8) X10*3/uL RBC (4.60-5.80) X10*6/uL Hgb (14.0-18.0) g/dl Hct (42.0-52.0) % MCV (80.0-98.0) fL MCH (27.0-33.0) pg MCHC (31.0-36.0) g/dl RDW (11.0-16.0) % Plt Count (160-400) X10*3/uL MPV (9.4-12.4) fL Immature Gran % (Auto) (0.0-0.4) % Neut % (Auto) (45-73) % Lymph % (Auto) (20-40) % [place] % (Auto) (2-11) % Eos % (Auto) (0-4) % Baso % (Auto) (0-2) % Lymph # (Auto) (1.2-4.9) X10*3/uL [place] # (Auto) (0.1-1.2) X10*3/uL Eos # (Auto) (0.0-0.4) X10*3/uL Baso # (Auto) (0.0-0.2) X10*3/uL Abs Immat Gran (auto) (0.00-0.03) X10*3/uL Absolute Neuts (auto) (2.0-8.3) x10*3/uL Absolute Nucleated RBC (0.0-0.012) X10*3/uL Nucleated RBC % (auto) (0.0-0.2) /100WBC PT 11.6 (9.9-13.0) SEC INR 1.0 (0.9-1.1) APTT 31.4 (24.1-38.0) SEC Sodium 134 L (135-145) mmol/L Potassium 4.4 (3.3-5.1) mmol/L Chloride 97 (96-108) mmol/L Carbon Dioxide 25 (22-29) mmol/L Anion Gap 16 (12-20) BUN 17 H (9-16) mg/dL Creatinine 0.78 (0.5-1.4) mg/dL Estim Creat Clear Calc 104.2 Estimated GFR > 60 Random Glucose 309 H D (60-115) mg/dL Lactic Acid (0.5-2.0) mmol/L Lactic Acid F/U @ 2Hr (0.5-2.0) mmol/L Calcium 9.1 D (8.4-10.2) mg/dL Total Bilirubin 0.3 (0.0-1.0) mg/dL AST 11 D (5-37) U/L ALT 10 (0-40) U/L Alkaline Phosphatase 85 (39-117) U/L Troponin I High Sens 7.5 (<3.5-35.0) ng/L Total Protein 7.5 (6.5-8.0) g/dL Albumin 3.7 (3.5-5.0) g/dL Lipase 70 (8-78) U/L Urine Color Urine Appearance Urine pH (5.0-8.0) Ur Specific [place] (1.005-1.025) Urine Protein (NEG-TRACE) MG/DL Urine Glucose (UA) (NEG) MG/DL Urine Ketones (NEG) MG/DL Urine Blood (NEG) Urine Nitrite (NEG) Ur Leukocyte Esterase (NEG) Urine Opiates Screen (Not Detect) Urine Fentanyl Screen (Not Detect) Ur Barbiturates Screen (Not Detect) Ur Phencyclidine Scrn (Not Detect) Ur Amphetamines Screen (Not Detect) U Benzodiazepines Scrn (Not Detect) Urine Cocaine Screen (Not Detect) U Marijuana (THC) Screen (Not Detect) COVID-19 (JULIO) (Negative) COVID-19 Clin Com Influenza Type A (VIVEK) (Negative) Influenza Type B (VIVEK) (Negative) Influenza A & B Note 01/08/22 01/08/22 01/08/22 Range/Units 10:38 12:00 12:00 WBC (4.8-10.8) X10*3/uL RBC (4.60-5.80) X10*6/uL Hgb (14.0-18.0) g/dl Hct (42.0-52.0) % MCV (80.0-98.0) fL MCH (27.0-33.0) pg MCHC (31.0-36.0) g/dl RDW (11.0-16.0) % Plt Count (160-400) X10*3/uL MPV (9.4-12.4) fL Immature Gran % (Auto) (0.0-0.4) % Neut % (Auto) (45-73) % Lymph % (Auto) (20-40) % [place] % (Auto) (2-11) % Eos % (Auto) (0-4) % Baso % (Auto) (0-2) % Lymph # (Auto) (1.2-4.9) X10*3/uL [place] # (Auto) (0.1-1.2) X10*3/uL Eos # (Auto) (0.0-0.4) X10*3/uL Baso # (Auto) (0.0-0.2) X10*3/uL Abs Immat Gran (auto) (0.00-0.03) X10*3/uL Absolute Neuts (auto) (2.0-8.3) x10*3/uL Absolute Nucleated RBC (0.0-0.012) X10*3/uL Nucleated RBC % (auto) (0.0-0.2) /100WBC PT (9.9-13.0) SEC INR (0.9-1.1) APTT (24.1-38.0) SEC Sodium (135-145) mmol/L Potassium (3.3-5.1) mmol/L Chloride (96-108) mmol/L Carbon Dioxide (22-29) mmol/L Anion Gap (12-20) BUN (9-16) mg/dL Creatinine (0.5-1.4) mg/dL Estim Creat Clear Calc Estimated GFR Random Glucose (60-115) mg/dL Lactic Acid 4.0 H* (0.5-2.0) mmol/L Lactic Acid F/U @ 2Hr (0.5-2.0) mmol/L Calcium (8.4-10.2) mg/dL Total Bilirubin (0.0-1.0) mg/dL AST (5-37) U/L ALT (0-40) U/L Alkaline Phosphatase (39-117) U/L Troponin I High Sens (<3.5-35.0) ng/L Total Protein (6.5-8.0) g/dL Albumin (3.5-5.0) g/dL Lipase (8-78) U/L Urine Color STRAW Urine Appearance CLEAR Urine pH 6.0 (5.0-8.0) Ur Specific [place] 1.010 (1.005-1.025) Urine Protein NEG (NEG-TRACE) MG/DL Urine Glucose (UA) 100 H (NEG) MG/DL Urine Ketones NEG (NEG) MG/DL Urine Blood NEG (NEG) Urine Nitrite NEG (NEG) Ur Leukocyte Esterase NEG (NEG) Urine Opiates Screen Not Detected (Not Detect) Urine Fentanyl Screen Not Detected (Not Detect) Ur Barbiturates Screen Not Detected (Not Detect) Ur Phencyclidine Scrn Not Detected (Not Detect) Ur Amphetamines Screen Not Detected (Not Detect) U Benzodiazepines Scrn Not Detected (Not Detect) Urine Cocaine Screen Not Detected (Not Detect) U Marijuana (THC) Screen Not Detected (Not Detect) COVID-19 (JULIO) (Negative) COVID-19 Clin Com Influenza Type A (VIVEK) (Negative) Influenza Type B (VIVEK) (Negative) Influenza A & B Note 01/08/22 Range/Units 15:13 WBC (4.8-10.8) X10*3/uL RBC (4.60-5.80) X10*6/uL Hgb (14.0-18.0) g/dl Hct (42.0-52.0) % MCV (80.0-98.0) fL MCH (27.0-33.0) pg MCHC (31.0-36.0) g/dl RDW (11.0-16.0) % Plt Count (160-400) X10*3/uL MPV (9.4-12.4) fL Immature Gran % (Auto) (0.0-0.4) % Neut % (Auto) (45-73) % Lymph % (Auto) (20-40) % [place] % (Auto) (2-11) % Eos % (Auto) (0-4) % Baso % (Auto) (0-2) % Lymph # (Auto) (1.2-4.9) X10*3/uL [place] # (Auto) (0.1-1.2) X10*3/uL Eos # (Auto) (0.0-0.4) X10*3/uL Baso # (Auto) (0.0-0.2) X10*3/uL Abs Immat Gran (auto) (0.00-0.03) X10*3/uL Absolute Neuts (auto) (2.0-8.3) x10*3/uL Absolute Nucleated RBC (0.0-0.012) X10*3/uL Nucleated RBC % (auto) (0.0-0.2) /100WBC PT (9.9-13.0) SEC INR (0.9-1.1) APTT (24.1-38.0) SEC Sodium (135-145) mmol/L Potassium (3.3-5.1) mmol/L Chloride (96-108) mmol/L Carbon Dioxide (22-29) mmol/L Anion Gap (12-20) BUN (9-16) mg/dL Creatinine (0.5-1.4) mg/dL Estim Creat Clear Calc Estimated GFR Random Glucose (60-115) mg/dL Lactic Acid (0.5-2.0) mmol/L Lactic Acid F/U @ 2Hr 4.9 H* (0.5-2.0) mmol/L Calcium (8.4-10.2) mg/dL Total Bilirubin (0.0-1.0) mg/dL AST (5-37) U/L ALT (0-40) U/L Alkaline Phosphatase (39-117) U/L Troponin I High Sens (<3.5-35.0) ng/L Total Protein (6.5-8.0) g/dL Albumin (3.5-5.0) g/dL Lipase (8-78) U/L Urine Color Urine Appearance Urine pH (5.0-8.0) Ur Specific [place] (1.005-1.025) Urine Protein (NEG-TRACE) MG/DL Urine Glucose (UA) (NEG) MG/DL Urine Ketones (NEG) MG/DL Urine Blood (NEG) Urine Nitrite (NEG) Ur Leukocyte Esterase (NEG) Urine Opiates Screen (Not Detect) Urine Fentanyl Screen (Not Detect) Ur Barbiturates Screen (Not Detect) Ur Phencyclidine Scrn (Not Detect) Ur Amphetamines Screen (Not Detect) U Benzodiazepines Scrn (Not Detect) Urine Cocaine Screen (Not Detect) U Marijuana (THC) Screen (Not Detect) COVID-19 (JULIO) (Negative) COVID-19 Clin Com Influenza Type A (VIVEK) (Negative) Influenza Type B (VIVEK) (Negative) Influenza A & B Note ECG Data ECG #1: Attestation: I personally reviewed and interpreted this ECG as follows: Interpretation: 1624: Sinus tachycardia with a rate of 102, normal VA interval, QRS duration and QTC interval, no ST segment elevation, no ST segment depression, no PACs, no PVCs, no T-wave abnormalities. Except for the tachycardia this is a normal EKG. Critical Care Time Critical Care Time Total Critical Care Time: 45 Attestation: Critical Care: The patient was critically ill with a high probability of imminent or life threatening deterioration. I spent greater than 30 minutes of discontinuous time evaluating the patient,delivering critical care at the bedside, discussing and evaluating pertinent data with consultants. Critical care time does not include time spent performing separately billable procedures or teaching. Total time spent performing critical care was 45 minutes. Discharge Plan Discharge Clinical Impression: Acute alteration in mental status, Inability to walk Patient Disposition: Admitted As Inpatient
[2022-01-08] MEDS: cefTRIAXone sodium 1 GM in 0.9 % Sodium Chloride 50 ML IV (12:04)
[2022-01-08 12:10] LABS: Appearance Urine CLEAR; Color Urine STRAW; Glucose Urine UA 100 MG/DL (NEG); Leukocyte Esterase Urine NEG (NEG); Nitrite Urine NEG (NEG); Urine Blood NEG (NEG); Urine Ketones NEG (NEG); Urine Protein NEG (NEG-TRACE)
[2022-01-08 12:26] LABS: Amphetamine Screen Urine Not Detected (Not Detect); Barbiturates, Urine Not Detected (Not Detect); Benzodiazepines Screen Urine Not Detected (Not Detect); Cannabinoid Screen Urine Not Detected (Not Detect); Cocaine Screen Urine Not Detected (Not Detect); Fentanyl, urine Not Detected (Not Detect); Opiate Screen Urine Not Detected (Not Detect); Phencyclidine Screen Urine Not Detected (Not Detect)
[2022-01-08 12:42] LABS: Reflex Lactate? Lactic Acid Added
[2022-01-08] MEDS: SODIUM CHLORIDE 1776 ML IV (13:17)
--- NOTE | 2022-01-08 14:35 | MHC.STROKE ---
I REVIEWED THE PATIENTS RECORD AND DID A NURSING SWALLOW SCREEN. HE WAS ABLE TO TAKE THE WATER WITH A SPOON BUT WHEN HE DRANK FROM THE CUP HE BEGAN COUGHING. NO WET SOUNDS. HE IS LARGE AND HAS DIFFICULTY SITTING UP COMPLETELY STRAIGHT. HE ALSO BENDS HIS NECK TO THE RIGHT AND HAS DECREASE MOBILITY IN THE NECK. I DID NOTIFY DR. AWAD AND SPEECH THERAPY. THE HOPE IS FOR HIM TO RETURN TO THE SNF WITH RECOMMENDATIONS FROM SPEECH.
[2022-01-08 15:38] LABS: ~Lactic Acid-LAB USE ONLY 4.9 mmol/L (0.5-2.0)
--- NOTE | 2022-01-08 15:52 | ECG_ITS ---
Test Reason : AMS Blood Pressure : / mmHG Vent. Rate : 102 BPM Atrial Rate : 102 BPM P-R Int : 166 ms QRS Dur : 090 ms QT Int : 362 ms P-R-T Axes : 063 080 067 degrees QTc Int : 471 ms Sinus tachycardia Otherwise normal ECG When compared with ECG of 03-FEB-2021 15:21, No significant change was found Referred By: Jun Pittman Electronically Signed By:JAIRON YEH
[2022-01-08 16:28] LABS: Troponin-I High Sensitivity 7.5 ng/L (<3.5-35.0)
--- NOTE | 2022-01-08 16:32 | P.HPHOSP_ITS ---
History of Present Illness Date of Service: 01/08/22 Chief Complaint: Altered mental status, incontinent to urine a 66-year-old main with PMH of CHF, chronic respiratory failure on oxygen, COPD, HTN, pulmonary fibrosis who was brought to the emergency for altered mentation from long-term care. The patient was found air in the morning and altered mentation having difficulties to move around and was incontinent of the urine according to the paramedics. At baseline he is alert and independent with good mental status. He is Persian speaker, I met him with official court interpreter and he was able to tell he is in [facility] but could not tell to ER or how did he end up here. Reports feeling overall good but some shortness of breath which is chronic and recurrent. Denies any fever, chills, abdominal pain, coughing, change in bowel habit or urinary symptoms but reported going for urine multiple occasions. In the emergency he was found to have elevated lactic acid with no clear source of infection identified. Admitted for further evaluation and treatment. Review of Systems Review of Systems: No fever, chills or weakness No chest pain, palpitation Oxygen shortness of breath with no coughing No abdominal pain, nausea or vomiting No urinary symptoms No any rash or wounds PMFSH Medical History Alcohol dependence in remission Anemia Antisocial personality disorder Blind right eye Cataract, right eye CHF (congestive heart failure) Chronic respiratory failure with hypoxia Cocaine abuse in remission COPD (chronic obstructive pulmonary disease) GERD (gastroesophageal reflux disease) HTN (hypertension) Hyperlipidemia Psoriasis Pulmonary fibrosis Vitamin D deficiency Social History Household Members: None Housing: Correction Do you presently have visiting nurse or other home services: No Unable to assess alcohol history related to: Unknown Alcohol intake: unknown Patient Tobacco Use Status: Tobacco use Unknown e-Cigarette/Vaping Use: Never Used Patient Given Instructions on How to Stop Smoking: No Second Hand Smoke Exposure: No Use of substances other than those prescribed or required for medical reasons: Unknown Last Used Substance: Unknown Currently Displaying Signs/Symptoms of Drug Intoxication Withdrawal: No Other Past Substance Use Problem:: patient hx refers to alcohol and cocaine abuse, now in remission Have you been hit, kicked, punched, or otherwise hurt by someone within the past year? If so, by whom?: No Do you feel safe in your current relationship?: No Current Relationship Is there a partner from a previous relationship who is making you feel unsafe now?: No Are you made to feel afraid or neglected: No Advance Directives: No Advance Directives Information Provided: No Advance Directives on File: Yes Do you have thoughts of harming others: None Do you have a plan to hurt others: No Plan Recently lost weight without trying: Unsure Nutrition Risks: No Nutritional Risk Poor oral hygiene: Yes service: No Current occupational status: disabled Meds Allergies Allergy/AdvReac Type Severity Reaction Status Date / Time Penicillins [PCN] Allergy Unknown Verified 01/08/22 10:26 Active Medications: Current Medications Pharmacy Consult (Consult Rx Perform Med Rec) 1 each MISCELLANE ONCE PRN PRN Reason: Consult order Home Medications Medication Instructions Recorded Confirmed Last Taken Type acetaminophen 325 mg tablet 650 mg PO Q4H PRN 02/03/21 01/08/22 Unknown History (Tylenol) aluminum-mag hydroxide-simethicone 30 ml PO Q6H PRN 02/03/21 01/08/22 Unknown History 200 mg-200 mg-20 mg/5 mL oral susp aspirin 81 mg tablet,delayed 81 mg PO DAILY 02/03/21 01/08/22 Unknown History release (Aspirin Low Dose) atorvastatin 40 mg tablet 40 mg PO BEDTIME 02/03/21 01/08/22 Unknown History bisacodyl 10 mg rectal suppository 10 mg CO DAILY PRN 02/03/21 01/08/22 Unknown History bisacodyl 5 mg tablet,delayed 5 mg PO Q24H PRN 02/03/21 01/08/22 Unknown History release docusate sodium 100 mg capsule 200 mg PO BEDTIME 02/03/21 01/08/22 Unknown History (Colace) furosemide 40 mg tablet (Lasix) 40 mg PO DAILY 02/03/21 01/08/22 01/08/22 History magnesium hydroxide 400 mg/5 mL 30 ml PO DAILY PRN 02/03/21 01/08/22 Unknown History oral suspension (Milk of Magnesia) magnesium oxide 400 mg PO TID 02/03/21 01/08/22 Unknown History metformin 1,000 mg tablet 1,000 mg PO BID 02/03/21 01/08/22 Unknown History polyethylene glycol 3350 17 8.5 g PO DAILY 02/03/21 01/08/22 Unknown History gram/dose oral powder (Miralax) tiotropium bromide 1.25 2 puff INHALATION DAILY 02/03/21 01/08/22 Unknown History mcg/actuation mist for inhalation (Spiriva Respimat) insulin detemir U-100 100 unit/mL 24 unit SUBCUT BEDTIME 01/08/22 01/08/22 Unknown History subcutaneous solution (Levemir U-100 Insulin) metoprolol succinate 25 mg 25 mg PO DAILY 01/08/22 01/08/22 Unknown History tablet,extended release 24 hr olanzapine 10 mg tablet 10 mg PO BID 01/08/22 01/08/22 Unknown History Physical Exam Vital Signs and Narrative: Vital Signs: Last Vital Signs Temp 99.4 F 01/08/22 10:20 Pulse 106 H 01/08/22 14:22 Resp 19 01/08/22 14:22 BP 116/60 01/08/22 14:22 Pulse Ox 92 01/08/22 14:22 BMI result Body Mass Index 39.2 Const: Other: Constitutional : Alert, interactive, not in distress Neck : Normal inspection, Supple Cardiovascular : RRR, no JVP, no lower extremity edema Respiratory : fair bilateral air entry, no crackles, wheezes or rhonchi Gastrointestinal: soft, lax, Normal bowel sounds, Non tender Skin : Warm, Dry, stable pressure ulcer stage II with no rhythm a or drainage. Neurological : Alert & oriented to self and place but not time, No focal deficit , CN 2-12 within normal, focal tremor in his left upper extremity Results Labs CBC and Chem 7: 01/08/22 10:35 01/08/22 10:35 Labs: Laboratory Results - last 24 hr 01/08/22 01/08/22 01/08/22 10:30 10:30 10:35 MCV 78.8 L MCH 24.8 L MCHC 31.4 RDW 15.2 Plt Count 228 MPV 10.8 Immature Gran % (Auto) 0.7 H Neut % (Auto) 82.0 H Lymph % (Auto) 7.9 L [place] % (Auto) 8.5 Eos % (Auto) 0.5 Baso % (Auto) 0.4 Lymph # (Auto) 0.8 L [place] # (Auto) 0.9 Eos # (Auto) 0.1 Baso # (Auto) 0.0 Abs Immat Gran (auto) 0.07 H Absolute Neuts (auto) 8.3 Absolute Nucleated RBC 0.000 Nucleated RBC % (auto) 0.0 PT INR APTT Anion Gap Estim Creat Clear Calc Estimated GFR Random Glucose Lactic Acid Lactic Acid F/U @ 2Hr Calcium Total Bilirubin AST ALT Alkaline Phosphatase Troponin I High Sens Total Protein Albumin Lipase Urine Color Urine Appearance Urine pH Ur Specific [place] Urine Protein Urine Glucose (UA) Urine Ketones Urine Blood Urine Nitrite Ur Leukocyte Esterase Urine Opiates Screen Urine Fentanyl Screen Ur Barbiturates Screen Ur Phencyclidine Scrn Ur Amphetamines Screen U Benzodiazepines Scrn Urine Cocaine Screen U Marijuana (THC) Screen COVID-19 (JULIO) Negative COVID-19 Clin Com See Note Influenza Type A (VIVEK) Negative Influenza Type B (VIVEK) Negative Influenza A & B Note See Note 01/08/22 01/08/22 01/08/22 10:35 10:35 10:35 MCV MCH MCHC RDW Plt Count MPV Immature Gran % (Auto) Neut % (Auto) Lymph % (Auto) [place] % (Auto) Eos % (Auto) Baso % (Auto) Lymph # (Auto) [place] # (Auto) Eos # (Auto) Baso # (Auto) Abs Immat Gran (auto) Absolute Neuts (auto) Absolute Nucleated RBC Nucleated RBC % (auto) PT 11.6 INR 1.0 APTT 31.4 Anion Gap 16 Estim Creat Clear Calc 104.2 Estimated GFR > 60 Random Glucose 309 H D Lactic Acid Lactic Acid F/U @ 2Hr Calcium 9.1 D Total Bilirubin 0.3 AST 11 D ALT 10 Alkaline Phosphatase 85 Troponin I High Sens 7.5 Total Protein 7.5 Albumin 3.7 Lipase 70 Urine Color Urine Appearance Urine pH Ur Specific [place] Urine Protein Urine Glucose (UA) Urine Ketones Urine Blood Urine Nitrite Ur Leukocyte Esterase Urine Opiates Screen Urine Fentanyl Screen Ur Barbiturates Screen Ur Phencyclidine Scrn Ur Amphetamines Screen U Benzodiazepines Scrn Urine Cocaine Screen U Marijuana (THC) Screen COVID-19 (JULIO) COVID-19 Clin Com Influenza Type A (VIVEK) Influenza Type B (VIVEK) Influenza A & B Note 01/08/22 01/08/22 01/08/22 10:38 12:00 12:00 MCV MCH MCHC RDW Plt Count MPV Immature Gran % (Auto) Neut % (Auto) Lymph % (Auto) [place] % (Auto) Eos % (Auto) Baso % (Auto) Lymph # (Auto) [place] # (Auto) Eos # (Auto) Baso # (Auto) Abs Immat Gran (auto) Absolute Neuts (auto) Absolute Nucleated RBC Nucleated RBC % (auto) PT INR APTT Anion Gap Estim Creat Clear Calc Estimated GFR Random Glucose Lactic Acid 4.0 H* Lactic Acid F/U @ 2Hr Calcium Total Bilirubin AST ALT Alkaline Phosphatase Troponin I High Sens Total Protein Albumin Lipase Urine Color STRAW Urine Appearance CLEAR Urine pH 6.0 Ur Specific [place] 1.010 Urine Protein NEG Urine Glucose (UA) 100 H Urine Ketones NEG Urine Blood NEG Urine Nitrite NEG Ur Leukocyte Esterase NEG Urine Opiates Screen Not Detected Urine Fentanyl Screen Not Detected Ur Barbiturates Screen Not Detected Ur Phencyclidine Scrn Not Detected Ur Amphetamines Screen Not Detected U Benzodiazepines Scrn Not Detected Urine Cocaine Screen Not Detected U Marijuana (THC) Screen Not Detected COVID-19 (JULIO) COVID-19 Clin Com Influenza Type A (VIVEK) Influenza Type B (VIVEK) Influenza A & B Note 01/08/22 15:13 MCV MCH MCHC RDW Plt Count MPV Immature Gran % (Auto) Neut % (Auto) Lymph % (Auto) [place] % (Auto) Eos % (Auto) Baso % (Auto) Lymph # (Auto) [place] # (Auto) Eos # (Auto) Baso # (Auto) Abs Immat Gran (auto) Absolute Neuts (auto) Absolute Nucleated RBC Nucleated RBC % (auto) PT INR APTT Anion Gap Estim Creat Clear Calc Estimated GFR Random Glucose Lactic Acid Lactic Acid F/U @ 2Hr 4.9 H* Calcium Total Bilirubin AST ALT Alkaline Phosphatase Troponin I High Sens Total Protein Albumin Lipase Urine Color Urine Appearance Urine pH Ur Specific [place] Urine Protein Urine Glucose (UA) Urine Ketones Urine Blood Urine Nitrite Ur Leukocyte Esterase Urine Opiates Screen Urine Fentanyl Screen Ur Barbiturates Screen Ur Phencyclidine Scrn Ur Amphetamines Screen U Benzodiazepines Scrn Urine Cocaine Screen U Marijuana (THC) Screen COVID-19 (JULIO) COVID-19 Clin Com Influenza Type A (VIVEK) Influenza Type B (VIVEK) Influenza A & B Note Imaging Radiologist's Impressions: Impressions Chest X-Ray 01/08/22 10:52 IMPRESSION: Chronic interstitial thickening not significantly changed. No acute cardiopulmonary findings. Head CT 01/08/22 11:21 IMPRESSION: No acute intracranial pathology. Assessment and Plan (1) Pressure injury of buttock, stage 2: Status: Acute (2) Altered mental status: Status: Acute (3) Lactic acidosis: Status: Acute Plan a 66-year-old main with PMH of CHF, chronic respiratory failure on oxygen, COPD, HTN, pulmonary fibrosis who was brought to the emergency for altered mentation from long-term care. altered mental status Seems to be resolved at time of presentation Could be secondary to infection, seizure, retention or medications Check valproic acid level Check respiratory viral Check bladder scan postvoid Restart his home medication and monitor response Lactic acidosis Likely a result of metformin usage not due to sepsis CHF continue Lasix, metoprolol and aspirin Lung fibrosis continue Spiriva P.r.n. albuterol Type 2 diabetes Hold p.o. medications Humalog insulin DVT PPX Lovenox Quality Stroke Does the patient have a stroke diagnosis?: No VTE Prior VTE?: No VTE Risk Level:: Medical - moderate - high VTE Device Contraindication: Treatment Not Indicated VTE Drug Contraindication: N/A - Med Ordered
--- NOTE | 2022-01-08 16:58 | PHA.MEDREC ---
Pharmacy Consult ? Medication Reconciliation Pharmacy has completed the medication reconciliation. List from [facility]. Thanks Mario
[2022-01-08 17:16] LABS: Reflex Lactate? 2 Y
--- NOTE | 2022-01-08 18:07 | MHC.SL.SWA ---
Speech Pathologist Impression: Oropharyngeal dysphagia Dysphasia Diet Status: Downgrade Liquid Consistency and Strategies for Safe Swallow: Liquid Intake Recommendation: Delia Thick Liquid Intake Strategies: Small Sips No Straws Solid Food Consistency: Dietary Recommendations: Grnd/Mech Altered (NDD2) Additional Modifications to Solid Foods: Recommend GROUND/MECH ALTERED (NDD2) solids and NECTAR THICK liquids, pills WHOLE in PUREE. Ice chips ok. Recommend aspiration precautions and total supervision. Patient is able to feed himself, but may need assistance with tray set up and during meal (consider visual deficit- blind right eye). Notified MD, RN, RD via [facility]. Will continue to follow. Oral Medication Intake: Whole with Puree Please contact the pharmacy regarding appropriate crushable or liquid drug formulations that are available whenever modified delivery is recommended. Compensatory Strategies and Precautions to be Taken for Safe Swallow: Sitting Upright (90 deg) No Straw Small Bites and Sips Alternate Liquids/Solids Rate of Ingestion Change Avoid Specific Foods Supervision While Eating and Drinking for Safe Swallow: Total Supervision (1:1) Foods to Avoid: Tough, difficult to chew solids Swallowing Recommended Treatments: Compens. Strategy Educat. Recommendation for Speech: Inpatient Speech Therapy Comment: Frequency/Duration: M-F Date Range for Service Req: Timeline to reassess: Dictaphone Operator Clinican/Clinical Fellow: No Supervisory Statement: I have reviewed and agree with the student/clinical fellow's documentation: N/A Speech Language Pathologist: Taylor Pemberton M.A., CCC-CANARY RAISER
[2022-01-08] MEDS: Enoxaparin Sodium 40 MG/0.4 ML SYRINGE SUBCUT (18:25)
--- NOTE | 2022-01-08 18:59 | MHC.CM.PN ---
JANETH 01/08. Reviewed with guardian, Andree Yepez ([phone]). Copy left at bedside. Pt sleeping. Per record review, pt with AMS today. Orientated to person and place only. Lives at [facility]. Pt with long history of mental health issues. See medical record.Guardianship/Jesse's on file. Pt is a full code. Pt is Covid Negative. D/C plan: Return to [facility]. Will need BLS. CM to follow for d/c needs.
[2022-01-08 19:32] LABS: ~Lactic Acid-LAB USE ONLY 3.5 mmol/L (0.5-2.0)
[2022-01-08] MEDS: 0.9 % Sodium Chloride 1,000 ML 50 ML IVCONT (20:35)
--- NOTE | 2022-01-08 21:13 | PC.NURSE ---
REport called in to overflow unit-pt to be assigned to bed 9.
[2022-01-08 21:21] LABS: Glucose, Whole Blood 243 mg/dL (60-115)
[2022-01-08] MEDS: Insulin Glargine,Hum.rec.anlog 100 UNIT/ML 10 ML VIAL 20 UNIT SUBCUT (21:24)
[2022-01-08] MEDS: Docusate Sodium 100 MG CAPSULE 200 MG PO (21:24)
[2022-01-08] MEDS: Divalproex Sodium 500 MG TABLET.DR 1000 MG PO (21:24)
[2022-01-08] MEDS: Magnesium Oxide 400 MG TABLET PO (21:24)
[2022-01-08] MEDS: Atorvastatin Calcium 40 MG TABLET PO (21:24)
[2022-01-08] MEDS: Insulin Lispro 100 UNIT/ML 3 ML VIAL SUBCUT (21:25)
[2022-01-08] MEDS: OLANZapine 10 MG TABLET PO (21:53)
[2022-01-08] MEDS: 0.9 % Sodium Chloride Flush 3 ML SYRINGE IVFLUSH (21:57)
[2022-01-09 00:49] VITALS: BP 112/67; PULSE 86; RESP 18; TEMP 37; O2SAT 96
[2022-01-09 01:52] VITALS: BMI 41.7
[2022-01-09 04:00] VITALS: BP 124/67; PULSE 73; RESP 19; TEMP 36; O2SAT 97
[2022-01-09 07:35] VITALS: BP 121/58; PULSE 64; RESP 18; TEMP 36.1; O2SAT 94
[2022-01-09] MEDS: 0.9 % Sodium Chloride Flush 3 ML SYRINGE IVFLUSH ×2 (07:38→15:58)
[2022-01-09 07:47] LABS: Glucose, Whole Blood 168 mg/dL (60-115)
[2022-01-09] MEDS: Insulin Lispro 100 UNIT/ML 3 ML VIAL SUBCUT ×3 (08:42→15:58)
[2022-01-09] MEDS: Magnesium Oxide 400 MG TABLET PO ×2 (08:42→15:58)
[2022-01-09] MEDS: OLANZapine 10 MG TABLET PO (08:42)
[2022-01-09] MEDS: Metoprolol Succinate ER 25 MG TAB.ER.24H PO (08:42)
[2022-01-09] MEDS: Aspirin Enteric Coated 81 MG TABLET.DR PO (08:42)
[2022-01-09] MEDS: polyethylene glycoL 3350 17 GM POWD.PACK 8.5 GM PO (08:43)
[2022-01-09 09:07] VITALS: BP 121/58; PULSE 64; O2SAT 94
[2022-01-09 11:37] VITALS: BP 123/64; PULSE 66; RESP 18; TEMP 36.8; O2SAT 94
[2022-01-09 12:00] LABS: Adenovirus PCR Not Detected (Not Detect.); Bordetella parapertussis PCR Not Detected (Not Detect.); Bordetella pertussis PCR Not Detected (Not Detect.); Chlamydia pneumoniae PCR Not Detected (Not Detect.); Coronavirus 229E PCR Not Detected (Not Detect.); Coronavirus HKU1 PCR Not Detected (Not Detect.); Coronavirus NL63 PCR Not Detected (Not Detect.); Coronavirus OC43 PCR Not Detected (Not Detect.); Human metapneumovirus PCR Not Detected (Not Detect.); Influenza A PCR Not Detected (Not Detect.); Influenza B PCR Not Detected (Not Detect.); Rhino/Enterovirus PCR Not Detected (Not Detect.); SARS-CoV-2 PCR Not Detected (Not Detect.)
[2022-01-09 12:01] LABS: Mycoplasma pneumoniae PCR Not Detected (Not Detect.); Parainfluenza 1 PCR Not Detected (Not Detect.); Parainfluenza 2 PCR Not Detected (Not Detect.); Parainfluenza 3 PCR Not Detected (Not Detect.); Parainfluenza 4 PCR Not Detected (Not Detect.); RSV PCR Not Detected (Not Detect.)
[2022-01-09 12:06] LABS: Glucose, Whole Blood 240 mg/dL (60-115)
--- NOTE | 2022-01-09 13:33 | P.DS_ITS ---
DS: Providers Provider Date of Service: 01/09/22 Date of admission: 01/08/22 16:26 Primary care physician: Erinn Keane MD DS: Diagnosis Discharge Diagnosis (1) Pressure injury of buttock, stage 2: Status: Acute (2) Altered mental status: Status: Acute (3) Lactic acidosis: Status: Acute DS: Summary Hospital Course Hospital Course: admission note HPI ?a 66-year-old main with PMH of CHF, chronic respiratory failure on oxygen, COPD, HTN, pulmonary fibrosis who was brought to the emergency for altered mentation from long-term care. The patient was found air in the morning and altered mentation having difficulties to move around and was incontinent of the urine according to the paramedics. At baseline he is alert and independent with good mental status.? He is Korean speaker, I met him with skip loader and he was able to tell he is in [facility] but could not tell to ER or how did he end up here.? Reports feeling overall good but some shortness of breath which is? chronic and recurrent.? Denies any fever, chills, abdominal pain, coughing, change in bowel habit or urinary symptoms but reported going for urine multiple occasions. In the emergency he was found to have elevated lactic acid with no clear source of infection identified.? Admitted for further evaluation and treatment. Hospital course the patient was admitted to the hospital for evaluation of reported altered mentation. CT scan of the head was negative for any acute findings of stroke. The patient was around his normal baseline upon admission after contacting his healthcare proxy ST symptoms that brought him to the hospital seems to be resolved. He was monitored overnight with no evidence of seizure activity, retention or any altered mentation. He was able to participate with physical therapy in the morning who recommended therapy at the facility after being discharged. Seen by speech therapy team who recommended modified diet of NDD 2 and nectar thick fluid for the time being that can be advanced as tolerated as the patient will need outpatient follow-up with speech therapy team. Found to have lactic acidosis at time of presentation with no evidence of infection. Believed to be secondary to metformin usage. Time Spent with Patient Time attestation: Total time spent providing and/or coordinating discharge services: Discharge coordination time: Greater than 30 minutes Quality: Safe Use of Opioids Does Pt have an Active Cancer Diagnosis on the Problem List?: No Quality: Stroke Does the patient have a stroke diagnosis?: No Physical Exam Vital Signs: Vital Signs: Last Vital Signs Temp 98.3 F 01/09/22 11:37 Pulse 66 01/09/22 11:37 Resp 18 01/09/22 11:37 BP 123/64 01/09/22 11:37 Pulse Ox 94 01/09/22 11:37 BMI result Body Mass Index 41.7 Const: Other: Constitutional : Alert, interactive, not in distress Neck : Normal inspection, Supple Cardiovascular : RRR, no JVP, no lower extremity edema Respiratory : fair bilateral air entry, no crackles, wheezes or rhonchi Gastrointestinal: soft, lax, Normal bowel sounds, Non tender Skin : Warm, Dry, stable pressure ulcer stage II with no rhythm a or drainage. Neurological : Alert & oriented to self and place And the year, No focal deficit , CN 2-12 within normal, focal resting tremor in his left upper e xtremity and lips DS: Data Data Completed and Pending Labs on day of discharge: Laboratory Results - last 24 hr 01/08/22 01/08/22 01/08/22 10:35 10:35 15:13 POC Glucose Lactic Acid F/U @ 2Hr 4.9 H* Lactic Acid F/U @ 4Hr Troponin I High Sens 7.5 Valproic Acid Cancelled Respiratory Panel [place]enson Adenovirus (Rapid PCR) B.pert (TEM-PCR) B.parapertussis DNA PCR C. pneumoniae DNA (PCR) Coronavirus OC43 (PCR) Coronavirus HKU1 (PCR) Coronavirus 229E (PCR) Coronavirus NL63 (PCR) Human Metapneumovir PCR Influenza A (RT-PCR) Influenza B (RT-PCR) M. pneumoniae (PCR) Parainfluenza 1 (PCR) Parainfluenza 2 (PCR) Parainfluenza 3 (PCR) Parainfluenza 4 (PCR) RSV (PCR) Entero/Rhino (PCR) SARS-CoV-2 RNA (RT-PCR) 01/08/22 01/08/22 01/08/22 18:27 19:15 21:16 POC Glucose 243 H Lactic Acid F/U @ 2Hr Lactic Acid F/U @ 4Hr 3.5 H* Troponin I High Sens Valproic Acid Respiratory Panel Swenson See Note Adenovirus (Rapid PCR) Not Detected B.pert (TEM-PCR) Not Detected B.parapertussis DNA PCR Not Detected C. pneumoniae DNA (PCR) Not Detected Coronavirus OC43 (PCR) Not Detected Coronavirus HKU1 (PCR) Not Detected Coronavirus 229E (PCR) Not Detected Coronavirus NL63 (PCR) Not Detected Human Metapneumovir PCR Not Detected Influenza A (RT-PCR) Not Detected Influenza B (RT-PCR) Not Detected M. pneumoniae (PCR) Not Detected Parainfluenza 1 (PCR) Not Detected Parainfluenza 2 (PCR) Not Detected Parainfluenza 3 (PCR) Not Detected Parainfluenza 4 (PCR) Not Detected RSV (PCR) Not Detected Entero/Rhino (PCR) Not Detected SARS-CoV-2 RNA (RT-PCR) Not Detected 01/09/22 01/09/22 07:41 12:02 POC Glucose 168 H 240 H Lactic Acid F/U @ 2Hr Lactic Acid F/U @ 4Hr Troponin I High Sens Valproic Acid Respiratory Panel [place] Adenovirus (Rapid PCR) B.pert (TEM-PCR) B.parapertussis DNA PCR C. pneumoniae DNA (PCR) Coronavirus OC43 (PCR) Coronavirus HKU1 (PCR) Coronavirus 229E (PCR) Coronavirus NL63 (PCR) Human Metapneumovir PCR Influenza A (RT-PCR) Influenza B (RT-PCR) M. pneumoniae (PCR) Parainfluenza 1 (PCR) Parainfluenza 2 (PCR) Parainfluenza 3 (PCR) Parainfluenza 4 (PCR) RSV (PCR) Entero/Rhino (PCR) SARS-CoV-2 RNA (RT-PCR) Preliminary micro results at discharge 01/08/22 10:35 Blood Culture - Preliminary Blood - Venous No growth after 24 hours. Discharge Plan Discharge Patient Disposition: Xfer [facility] Discharge Diagnosis: altered mental status Referrals: Erinn Keane MD [Primary Care Provider] - 1 Week Discharge Medications: Continued furosemide [Lasix] 40 mg Tablet 40 mg PO DAILY 0RF Rx Instructions: HOLD FOR SBP< 100; DBP< 50 atorvastatin 40 mg Tablet 40 mg PO BEDTIME 0RF acetaminophen [Tylenol] 325 mg Tablet 650 mg PO Q4H PRN (Reason: PAIN/ FEVER) 0RF aspirin [Aspirin Low Dose] 81 mg Tablet,Delayed Release (Dr/Ec) 81 mg PO DAILY 0RF magnesium hydroxide [Milk of Magnesia] 400 mg/5 mL Suspension 30 ml PO DAILY PRN (Reason: Constipation) 0RF bisacodyl 10 mg Suppository 10 mg CA DAILY PRN (Reason: Constipation) 0RF metformin 1,000 mg Tablet 1,000 mg PO BID 0RF docusate sodium [Colace] 100 mg Capsule 200 mg PO BEDTIME 0RF bisacodyl 5 mg Tablet,Delayed Release (Dr/Ec) 5 mg PO Q24H PRN (Reason: Constipation) 0RF alum-mag hydroxide-simeth 200-200-20 mg/5 mL Suspension 30 ml PO Q6H PRN (Reason: Gastric Reflux) 0RF polyethylene glycol 3350 [Miralax] 17 gram/dose Powder 8.5 g PO DAILY 0RF Spiriva Respimat 1.25 mcg/actuation Mist 2 puff INHALATION DAILY 0RF magnesium oxide 400 mg magnesium Tablet 400 mg PO TID 0RF divalproex [Depakote] 500 mg Tablet,Delayed Release (Dr/Ec) 1,000 mg PO BEDTIME Qty: 0 0RF metoprolol succinate 25 mg Tablet Extended Release 24 Hr 25 mg PO DAILY 0RF olanzapine 10 mg tablet 10 mg PO BID 0RF Levemir U-100 Insulin 100 unit/mL Solution 24 unit SUBCUT BEDTIME 0RF Discharge Orders: Discharge Order (Routine); Ordered 01/09/22 Ordered By: Lety Quiñonez Diet: other Activity on Discharge: As tolerated Stand Alone Forms: Patient Portal Discharge page Care Plan Goals: Read below Health Concerns: Read below Plan of Treatment: Read below Assessment: You were admitted for evaluation of altered mentation. No evidence of infection was found. Your mental status improved back to normal baseline. Head image of CT scan was negative for any acute findings. We advise you to continue your current medications and to do physical therapy at home with modified diet as planned. Discharge Date/Time: 01/09/22 17:24
--- NOTE | 2022-01-09 14:07 | MHC.CM.PN ---
Addendum entered by Teresa Chong 01/09/22 16:06: CM SPOKE TO RN ACCOUNTS RECEIVABLE ADMINISTRATOR AT [facility], [place]. SHE IS AWARE PT WILL BE RETURNING THIS EVENING AND THAT AMBULANCES ARE RUNNING LATE VM MESSAGE WAS LEFT FOR LEGAL GUARDIAN WELL Original Note: PT CLEARED TO RETURN TO [facility] TODAY UPDATES SENT TO SNF [facility]IA [facility] ARRANGED FOR 1600 HOURS CALL PLACED TO PTS GUARDIAN, CARIDAD KOHLI ([phone]) TO INFORM HER OF DC. AWAITING REPONSE FROM SNF
[2022-01-09 15:28] VITALS: BP 132/75; PULSE 71; RESP 20; TEMP 36.6; O2SAT 92
[2022-01-09 15:39] LABS: Glucose, Whole Blood 236 mg/dL (60-115)
[2022-01-09] MEDS: Enoxaparin Sodium 40 MG/0.4 ML SYRINGE SUBCUT (15:58)
== END 2022-01-09 17:24 ==
LOC: HO.ED 12:30 → HO.EDOVER 16:37 → HO.S3 23:32
PROVIDERS: Admitting Provider Student in an Organized Health Care Education/Training Program; Emergency Provider Emergency Medicine Emergency Medical Services; PCP Internal Medicine; Visit Provider Student in an Organized Health Care Education/Training Program
DX: L89.302 Pressure ulcer of unspecified buttock, stage 2 (principal); R41.82 Altered mental status, unspecified; E87.2 Acidosis; G93.89 Other specified disorders of brain; R00.0 Tachycardia, unspecified; J96.11 Chronic respiratory failure with hypoxia; J44.9 Chronic obstructive pulmonary disease, unspecified; J84.10 Pulmonary fibrosis, unspecified; R39.81 Functional urinary incontinence; I11.0 Hypertensive heart disease with heart failure; I50.9 Heart failure, unspecified; E78.5 Hyperlipidemia, unspecified; E55.9 Vitamin D deficiency, unspecified; H54.61 Unqualified visual loss, right eye, normal vision left eye; H26.9 Unspecified cataract; R13.12 Dysphagia, oropharyngeal phase; F10.21 Alcohol dependence, in remission; F14.11 Cocaine abuse, in remission; Z68.41 Body mass index [BMI] 40.0-44.9, adult; Z20.822 Contact with and (suspected) exposure to COVID-19; Z88.0 Allergy status to penicillin; Z99.81 Dependence on supplemental oxygen; Z79.82 Long term (current) use of aspirin; Z79.84 Long term (current) use of oral hypoglycemic drugs; Z79.899 Other long term (current) drug therapy
CPT/HCPCS: 36415; 70450; 71045; 80053; 80164; 80307; 81003; 82947; 83605; 83690; 84484; 85025; 85610; 85730; 87040; 87140; 87502; 87633; 87635; 92610; 93005; 96361; 96374; 97161; 99218; 99285; J0696; J1650

== ENCOUNTER 2023-05-30 02:50 | Emergency (ER) | payer MEDICAID, SELFPAY ==
[2023-05-30 03:01] VITALS: BP 109/64; BP 120/76; PULSE 90; PULSE 91; RESP 16; TEMP 36.7; O2SAT 92; O2SAT 95
--- NOTE | 2023-05-30 03:37 | ED.FALL ---
HPI - Fall General Chief Complaint: Fall Stated Complaint: FALL Time Seen by Provider: 05/30/23 03:21 Source: patient, EMS and educational interpreter Mode of arrival: EMS History of Present Illness HPI Narrative: A 67-year-old male with PMH of CHF, chronic respiratory failure on supplemental oxygen, COPD, HTN, pulmonary fibrosis who brought in to the emergency department by EMS after was found on the ground for uncertain time. Patient is overall a poor historian unable to provide a full history patient knew that he was found on the ground but does not know how we get on the floor. During the exam urine incontinence was noticed. Reviewing past medical history no history of seizure. Patient declined any symptoms at this point. Related Data Home Medications Medication Instructions Recorded Confirmed acetaminophen 325 mg tablet 650 mg PO Q4H PRN PAIN/ FEVER 02/03/21 01/08/22 (Tylenol) aluminum-mag hydroxide-simethicone 30 ml PO Q6H PRN Gastric Reflux 02/03/21 01/08/22 200 mg-200 mg-20 mg/5 mL oral susp aspirin 81 mg tablet,delayed 81 mg PO DAILY 02/03/21 01/08/22 release (Titus Low Dose Aspirin) atorvastatin 40 mg tablet 40 mg PO BEDTIME 02/03/21 01/08/22 bisacodyl 10 mg rectal suppository 10 mg NV DAILY PRN Constipation 02/03/21 01/08/22 bisacodyl 5 mg tablet,delayed 5 mg PO Q24H PRN Constipation 02/03/21 01/08/22 release docusate sodium 100 mg capsule 200 mg PO BEDTIME 02/03/21 01/08/22 (Colace) furosemide 40 mg tablet (Lasix) 40 mg PO DAILY 02/03/21 01/08/22 magnesium hydroxide 400 mg/5 mL 30 ml PO DAILY PRN Constipation 02/03/21 01/08/22 oral suspension (Milk of Magnesia) magnesium oxide 400 mg PO TID 02/03/21 01/08/22 metformin 1,000 mg tablet 1,000 mg PO BID 02/03/21 01/08/22 polyethylene glycol 3350 17 8.5 g PO DAILY 02/03/21 01/08/22 gram/dose oral powder (Miralax) tiotropium bromide 1.25 2 puff inhalation DAILY 06/15/21 05/20/22 mcg/actuation mist for inhalation (Spiriva Respimat) insulin detemir U-100 100 unit/mL 24 unit subcut BEDTIME 01/08/22 01/08/22 subcutaneous solution (Levemir U-100 Insulin) metoprolol succinate 25 mg 25 mg PO DAILY 01/08/22 01/08/22 tablet,extended release 24 hr olanzapine 10 mg tablet 10 mg PO BID 01/08/22 01/08/22 Previous Rx's Medication Instructions Recorded divalproex 500 mg tablet,delayed 1,000 mg (2 x 500 mg) PO BEDTIME 02/05/21 release (Depakote) #0 tabs Allergies Allergy/AdvReac Type Severity Reaction Status Date / Time Penicillins [PCN] Allergy Unknown Verified 01/08/22 10:26 Review of Systems Review of Systems: Yes Unobtainable due to mental status PMFSH Past Medical History Medical History Pressure injury of buttock, stage 2 Chronic respiratory failure with hypoxia Vitamin D deficiency Psoriasis Hyperlipidemia HTN (hypertension) Anemia Cataract, right eye GERD (gastroesophageal reflux disease) Cocaine abuse in remission Antisocial personality disorder Alcohol dependence in remission Blind right eye Pulmonary fibrosis CHF (congestive heart failure) COPD (chronic obstructive pulmonary disease) Social History Social History Household Members: None Housing: Half-Way Do you presently have visiting nurse or other home services: No Unable to assess alcohol history related to: Unknown Alcohol intake: unknown Patient Tobacco Use Status: Tobacco use Unknown Smoked in Last 30 Days: No e-Cigarette/Vaping Use: Never Used Second Hand Smoke Exposure: No Use of substances other than those prescribed or required for medical reasons: No Advance Directives: No Advance Directives Information Provided: No service: No Current occupational status: disabled Physical Exam Vital Signs: Vital Signs: Last Vital Signs Temp 98.0 F 05/30/23 03:01 Pulse 85 05/30/23 06:20 Resp 18 05/30/23 06:20 BP 121/46 L 05/30/23 06:20 Pulse Ox 94 05/30/23 06:20 O2 Del Method Room Air 05/30/23 06:20 BMI result Body Mass Index 30.0 Vital signs have been reviewed and appear to be correct. Blood pressure elevated. Heart rate normal. Respiratory rate normal. Temperature normal. Oxygen saturation normal. Appearance: Alert. Regard examiner answer question some of the questions, in urine incontinence, No acute distress. Head: Normal external exam. Normocephalic. Atraumatic. No Alston signs noted. No raccoon eyes noted Eyes: PERRLA. EOMI. Conjunctiva and sclera normal. Eyelids normal. ENT: TM's Normal. Pharynx normal. Uvula midline. Dry mucous membranes. No trismus noted. No drooling noted. No muffled voice noted. Neck: Normal inspection. Neck supple. FROM. No adenopathy. Thyroid Normal. No meningeal signs. No neck mass noted. CVS: Normal heart rate and rhythm. Heart sound normal. No murmurs noted. Pulses normal throughout. Respiratory: No respiratory distress. Painless inspiration. Breath sounds normal. No wheezes/rales/rhonchi noted. Chest nontender. No accessory muscle usage noted or decreased air movement noted. Abdomen: Soft and nontender. Bowel sounds normal in all 4 quadrants. No distention noted. No organomegaly noted. No visible injury noted. Back: No CVA tenderness. Full range of motion noted. Skin: Skin warm and dry. Normal skin color. Normal skin turgor. No rashes/lesions/lacerations noted. Extremities: No lower extremity edema. Extremities exhibit normal range of motion. Extremities nontender. Neuro: Oriented X 3. Cranial nerve exam: II-XII are grossly intact No motor deficit. No sensory deficit. Reflexes normal. Course Reevaluation(s) Reevaluation #1: A 67-year-old male from retirement found on the ground for uncertain period of time with potential head injury and C-spine injury, patient tested positive for COVID, patient and lactic acidosis due to dehydration will hydrate and repeat lactic acid. Case signed out to Dr. Cardoza to check CT head/cervical spine and repeat lactic acid after hydration. Time: 06:48 Medications Administered Generic Name Dose Route Start Last Admin Trade Name Freq PRN Reason Stop Dose Admin Sodium Chloride 1,000 mls @ 999 mls/hr 05/30/23 05:52 05/30/23 06:19 Ns IV 05/30/23 06:52 999 mls/hr .Q1H1M ONE Administration Medical Decision Making Differential Diagnosis Differential Diagnoses: The differential diagnosis associated with the presentation includes (Mechanical fall, closed head injury, intracranial bleed, cervical spine injury, electrolyte abnormality, dehydration, severe anemia, upper respiratory viral infection, pneumonia) Admission/Observation Consideration of admission/observation: Escalation of care including admission/observation considered Lab Data MDM Lab Attestation statement: I reviewed the patient's lab results. 05/30/23 03:25 05/30/23 03:25 Labs: Lab Results 05/30/23 05/30/23 05/30/23 Range/Units 03:25 03:35 03:47 WBC 14.1 H (4.8-10.8) X10*3/uL RBC 5.16 (4.60-5.80) X10*6/uL Hgb 12.7 L (14.0-18.0) g/dl Hct 40.0 L (42.0-52.0) % MCV 77.5 L (80.0-98.0) fL MCH 24.6 L (27.0-33.0) pg MCHC 31.8 (31.0-36.0) g/dl RDW 15.5 (11.0-16.0) % Plt Count 248 (160-400) X10*3/uL MPV 11.1 (9.4-12.4) fL Immature Gran % (Auto) 0.4 (0.0-0.4) % Neut % (Auto) 78.6 H (45-73) % Lymph % (Auto) 10.7 L (20-40) % Clarke % (Auto) 8.2 (2-11) % Eos % (Auto) 1.6 (0-4) % Baso % (Auto) 0.5 (0-2) % Lymph # (Auto) 1.5 (1.2-4.9) X10*3/uL Clarke # (Auto) 1.2 (0.1-1.2) X10*3/uL Eos # (Auto) 0.2 (0.0-0.4) X10*3/uL Baso # (Auto) 0.1 (0.0-0.2) X10*3/uL Abs Immat Gran (auto) 0.05 H (0.00-0.03) X10*3/uL Absolute Neuts (auto) 11.1 H (2.0-8.3) x10*3/uL Absolute Nucleated RBC 0.000 (0.0-0.012) X10*3/uL Nucleated RBC % (auto) 0.0 (0.0-0.2) /100WBC Sodium 138 (135-145) mmol/L Potassium 3.9 (3.3-5.1) mmol/L Chloride 98 (96-108) mmol/L Carbon Dioxide 24 (22-29) mmol/L Anion Gap 20 (12-20) BUN 14 (9-16) mg/dL Creatinine 0.73 (0.5-1.4) mg/dL Estim Creat Clear Calc 99.2 Estimated GFR > 60 Random Glucose 177 H (60-115) mg/dL Lactic Acid (0.5-2.0) mmol/L Calcium 9.5 (8.4-10.2) mg/dL Total Bilirubin 0.3 (0.0-1.0) mg/dL AST 12 (5-37) U/L ALT 8 (0-40) U/L Alkaline Phosphatase 85 (39-117) U/L Total Creatine Kinase 101 (38-174) U/L Troponin I High Sens < 2.7 (<3.5-35.0) ng/L Total Protein 7.8 (6.5-8.0) g/dL Albumin 3.7 (3.5-5.0) g/dL Hold Green Top See Note Influenza Type A (PCR) NEGATIVE (Negative) Influenza Type B (PCR) NEGATIVE (Negative) RSV RNA Qual (PCR) NEGATIVE (Negative) SARS-CoV-2 RNA (RT-PCR) POSITIVE A (Negative) 05/30/23 Range/Units 04:43 WBC (4.8-10.8) X10*3/uL RBC (4.60-5.80) X10*6/uL Hgb (14.0-18.0) g/dl Hct (42.0-52.0) % MCV (80.0-98.0) fL MCH (27.0-33.0) pg MCHC (31.0-36.0) g/dl RDW (11.0-16.0) % Plt Count (160-400) X10*3/uL MPV (9.4-12.4) fL Immature Gran % (Auto) (0.0-0.4) % Neut % (Auto) (45-73) % Lymph % (Auto) (20-40) % Clarke % (Auto) (2-11) % Eos % (Auto) (0-4) % Baso % (Auto) (0-2) % Lymph # (Auto) (1.2-4.9) X10*3/uL Clarke # (Auto) (0.1-1.2) X10*3/uL Eos # (Auto) (0.0-0.4) X10*3/uL Baso # (Auto) (0.0-0.2) X10*3/uL Abs Immat Gran (auto) (0.00-0.03) X10*3/uL Absolute Neuts (auto) (2.0-8.3) x10*3/uL Absolute Nucleated RBC (0.0-0.012) X10*3/uL Nucleated RBC % (auto) (0.0-0.2) /100WBC Sodium (135-145) mmol/L Potassium (3.3-5.1) mmol/L Chloride (96-108) mmol/L Carbon Dioxide (22-29) mmol/L Anion Gap (12-20) BUN (9-16) mg/dL Creatinine (0.5-1.4) mg/dL Estim Creat Clear Calc Estimated GFR Random Glucose (60-115) mg/dL Lactic Acid 3.6 H* (0.5-2.0) mmol/L Calcium (8.4-10.2) mg/dL Total Bilirubin (0.0-1.0) mg/dL AST (5-37) U/L ALT (0-40) U/L Alkaline Phosphatase (39-117) U/L Total Creatine Kinase (38-174) U/L Troponin I High Sens (<3.5-35.0) ng/L Total Protein (6.5-8.0) g/dL Albumin (3.5-5.0) g/dL Hold Green Top Influenza Type A (PCR) (Negative) Influenza Type B (PCR) (Negative) RSV RNA Qual (PCR) (Negative) SARS-CoV-2 RNA (RT-PCR) (Negative) Independent Interpretation I performed an independent interpretation of an: Plain X-Ray (Chest: No acute cardiopulmonary disease.) Radiology Impression Discussion of test interpretation with radiology: I have reviewed the radiologist's reading. Discharge Plan Discharge Clinical Impression: COVID-19, Closed head injury, Acidosis, lactic, Acute dehydration Patient Disposition: Still a Patient Prescriptions: No Action furosemide [Lasix] 40 mg Tablet 40 mg PO DAILY Rx Instructions: HOLD FOR SBP< 100; DBP< 50 atorvastatin 40 mg Tablet 40 mg PO BEDTIME acetaminophen [Tylenol] 325 mg Tablet 650 mg PO Q4H PRN (Reason: PAIN/ FEVER) aspirin [Titus Low Dose Aspirin] 81 mg Tablet,Delayed Release (Dr/Ec) 81 mg PO DAILY magnesium hydroxide [Milk of Magnesia] 400 mg/5 mL Suspension 30 ml PO DAILY PRN (Reason: Constipation) bisacodyl 10 mg Suppository 10 mg NV DAILY PRN (Reason: Constipation) metformin 1,000 mg Tablet 1,000 mg PO BID docusate sodium [Colace] 100 mg Capsule 200 mg PO BEDTIME bisacodyl 5 mg Tablet,Delayed Release (Dr/Ec) 5 mg PO Q24H PRN (Reason: Constipation) alum-mag hydroxide-simeth 200-200-20 mg/5 mL Suspension 30 ml PO Q6H PRN (Reason: Gastric Reflux) polyethylene glycol 3350 [Miralax] 17 gram/dose Powder 8.5 g PO DAILY Spiriva Respimat 1.25 mcg/actuation Mist 2 puff INHALATION DAILY magnesium oxide 400 mg magnesium Tablet 400 mg PO TID divalproex [Depakote] 500 mg Tablet,Delayed Release (Dr/Ec) 1,000 mg PO BEDTIME Qty: 0 0RF metoprolol succinate 25 mg Tablet Extended Release 24 Hr 25 mg PO DAILY olanzapine 10 mg tablet 10 mg PO BID Levemir U-100 Insulin 100 unit/mL Solution 24 unit SUBCUT BEDTIME
[2023-05-30 04:00] LABS: Alanine Aminotransferase 8 U/L (0-40); Albumin Level 3.7 g/dL (3.5-5.0); Alkaline Phosphatase 85 U/L (39-117); Anion Gap 20 (12-20); Aspartate Amino Transferase 12 U/L (5-37); Bilirubin Total 0.3 mg/dL (0.0-1.0); Blood Urea Nitrogen 14 mg/dL (9-16); Calcium 9.5 mg/dL (8.4-10.2); Carbon Dioxide 24 mmol/L (22-29); Chloride 98 mmol/L (96-108); Creatinine Clr Calc Pharmacy 99.2; Estimated Glomerular Filt Rate > 60; Glucose Random 177 mg/dL (60-115); Potassium 3.9 mmol/L (3.3-5.1); Sodium 138 mmol/L (135-145); Total Protein 7.8 g/dL (6.5-8.0)
--- NOTE | 2023-05-30 04:58 | PC.NURSE ---
pt is refusing straight cath, and [place] cath. urinal placed and encouraged pt to call if he is able to urinate on his own.
[2023-05-30 05:02] LABS: Lactic Acid 3.6 mmol/L (0.5-2.0)
--- NOTE | 2023-05-30 05:02 | PC.NURSE ---
lactic 3.6, COVID +
[2023-05-30 06:20] VITALS: BP 121/46; PULSE 85; RESP 18; O2SAT 94
--- NOTE | 2023-05-30 09:00 | MHC.EDTECH ---
PT REFUSED BLOODWORK @8AM. PREVIOUS TECH REPORTED PT REFUSED BLOOD ON HER SHIFT ALSO
[2023-05-30 09:21] VITALS: BP 118/56; PULSE 91; RESP 16; TEMP 36.7; O2SAT 94
--- NOTE | 2023-05-30 10:00 | PC.NURSE ---
pt is a/o x 2. no c/o sob/faby speaks in full (low voice) sentences. no edema noted. pt aware of plan of care.
[2023-05-30 10:40] VITALS: TEMP 38.6
--- NOTE | 2023-05-30 11:07 | PHA.MEDREC ---
Pharmacy Consult ? Medication Reconciliation Pharmacy has completed the medication reconciliation. PT HAS LIST FROM [facility]
[2023-05-30 12:00] VITALS: BP 101/53; PULSE 83; RESP 16; TEMP 37.4; O2SAT 93
--- NOTE | 2023-05-30 12:44 | PC.NURSE ---
RN TO RN REPORT GIVEN TO SAMEER. PT TO BE TRANSFERED TO HOME WHICH IS [facility].
== END 2023-05-30 12:58 ==
PROVIDERS: Emergency Provider Emergency Medicine; PCP Emergency Medicine
DX: S09.90XA Unspecified injury of head, initial encounter (principal); U07.1 COVID-19; E87.20 Acidosis, unspecified; E86.0 Dehydration; J44.9 Chronic obstructive pulmonary disease, unspecified; I10 Essential (primary) hypertension; W01.0XXA Fall on same level from slipping, tripping and stumbling without subsequent striking against object, initial encounter; Y93.9 Activity, unspecified; Y92.9 Unspecified place or not applicable; Y99.9 Unspecified external cause status; Z79.899 Other long term (current) drug therapy; Z99.81 Dependence on supplemental oxygen
CPT/HCPCS: 0241U; 36415; 70450; 71045; 72125; 80053; 81001; 82550; 83605; 84484; 85025; 87040; 96360; 96361; 99285

== ENCOUNTER 2023-05-31 22:09 | Inpatient (IN) | payer MEDICAID, SELFPAY ==
[2023-05-31 22:22] VITALS: BP 135/84; PULSE 102; RESP 22; TEMP 39.2; O2SAT 90; BMI 33.8
--- NOTE | 2023-05-31 22:27 | PC.NURSE ---
sepsis alert called overhead. second iv established, labs obtained and sent at this time.
[2023-05-31 22:32] VITALS: O2SAT 95
[2023-05-31 22:54] VITALS: BP 125/45; PULSE 104; RESP 25; O2SAT 91
--- NOTE | 2023-05-31 22:56 | PC.NURSE ---
this rn assumed care of pt. pt BIBA [facility] positive for covid. pt has increased work of breathing at this time and shortness of breath. EMS placed pt on 2L nasal cannula t sating at 98%. pt 90% on room air, currently 2L nasal cannula between 91-93%. pt tachy on monitor 100-105. pt lung sounds clear bilaterally. provider at bedside discussing pt care.
[2023-05-31 22:58] LABS: Lactic Acid 1.3 mmol/L (0.5-2.0)
[2023-05-31 23:03] LABS: Alanine Aminotransferase 9 U/L (0-40); Albumin Level 3.6 g/dL (3.5-5.0); Alkaline Phosphatase 76 U/L (39-117); Anion Gap 16 (12-20); Aspartate Amino Transferase 21 U/L (5-37); Bilirubin Total 0.4 mg/dL (0.0-1.0); Blood Urea Nitrogen 12 mg/dL (9-16); Carbon Dioxide 24 mmol/L (22-29); Chloride 103 mmol/L (96-108); Creatinine Clr Calc Pharmacy 130.5; Estimated Glomerular Filt Rate > 60; Glucose Random 169 mg/dL (60-115); Potassium 4.2 mmol/L (3.3-5.1); Sodium 139 mmol/L (135-145); Total Protein 7.8 g/dL (6.5-8.0)
--- NOTE | 2023-05-31 23:08 | ED.GENADULT ---
HPI - General Adult General Chief complaint: Dyspnea Stated complaint: respiratory distress Time Seen by Provider: 05/31/23 22:57 Source: patient, EMS, RN notes reviewed and old records reviewed Mode of arrival: EMS Limitations: other (Patient is a poor historian at baseline. ) History of Present Illness HPI narrative: 67-year-old male with pertinent PMH for CHF, chronic respiratory failure , COPD not on supplemental oxygen at baseline., hypertension, pulmonary fibrosis brought in by EMS for evaluation of difficulty breathing and hypoxia. Patient was seen in the emergency 2 days ago and diagnosed with COVID. Return today for worsening of patient breathing status. Patient found to be febrile hypoxic and tachypneic with improvement of oxygenation on 4 L of nasal cannula. Related Data Home Medications Medication Instructions Recorded Confirmed acetaminophen 325 mg tablet 650 mg PO Q4H PRN PAIN/ FEVER 02/03/21 01/08/22 (Tylenol) aluminum-mag hydroxide-simethicone 30 ml PO Q6H PRN Gastric Reflux 02/03/21 01/08/22 200 mg-200 mg-20 mg/5 mL oral susp aspirin 81 mg tablet,delayed 81 mg PO DAILY 02/03/21 05/30/23 release (Titus Low Dose Aspirin) atorvastatin 40 mg tablet 80 mg PO BEDTIME 02/03/21 05/30/23 bisacodyl 10 mg rectal suppository 10 mg MT DAILY PRN Constipation 02/03/21 05/30/23 bisacodyl 5 mg tablet,delayed 5 mg PO Q24H PRN Constipation 02/03/21 05/30/23 release docusate sodium 100 mg capsule 200 mg PO BEDTIME 02/03/21 05/30/23 (Colace) furosemide 40 mg tablet (Lasix) 40 mg PO DAILY 02/03/21 05/30/23 magnesium hydroxide 400 mg/5 mL 30 ml PO DAILY PRN Constipation 02/03/21 05/30/23 oral suspension (Milk of Magnesia) magnesium oxide 400 mg PO TID 02/03/21 05/30/23 metformin 1,000 mg tablet 1,000 mg PO BID 02/03/21 05/30/23 polyethylene glycol 3350 17 8.5 g PO DAILY 02/03/21 05/30/23 gram/dose oral powder (Miralax) tiotropium bromide 1.25 2 puff inhalation DAILY 02/03/21 05/30/23 mcg/actuation mist for inhalation (Spiriva Respimat) insulin detemir U-100 100 unit/mL 38 unit subcut BEDTIME 01/08/22 05/30/23 subcutaneous solution (Levemir U-100 Insulin) metoprolol succinate 25 mg 25 mg PO DAILY 01/08/22 05/30/23 tablet,extended release 24 hr olanzapine 10 mg tablet 10 mg PO BID 01/08/22 05/30/23 cholecalciferol (vitamin D3) 1,250 1,250 mcg PO QMONTH 05/30/23 05/30/23 mcg (50,000 unit) tablet Previous Rx's Medication Instructions Recorded divalproex 500 mg tablet,delayed 1,000 mg (2 x 500 mg) PO BEDTIME 02/05/21 release (Depakote) #0 tabs Allergies Allergy/AdvReac Type Severity Reaction Status Date / Time Penicillins [PCN] Allergy Unknown Verified 01/08/22 10:26 Review of Systems Review of Systems: All other systems are reviewed and are negative Constitutional: Reports as per HPI and Reports no additional constitutional complaints Eyes: Reports as per HPI and Reports no additional eye complaints Reports system reviewed and no additional complaints, except as documented Cardiovascular: Reports as per HPI and Reports no additional cardiovascular complaints Respiratory: Reports as per HPI and Reports no additional respiratory complaints Gastrointestinal: Reports as per HPI and Reports no additional gastrointestinal complaints Genitourinary: Reports no additional female genitourinary complaints Musculoskeletal: Reports no additional musculoskeletal complaints Skin/Breast: Reports system reviewed and no additional complaints, except as docu Psychiatric: Reports no additional psychiatric complaints Endocrine: Reports no additional endocrine complaints Hematologic/Lymphatic: Reports no additional hematologic/lymphatic complaints Allergic/Immunologic: Reports no additional allergic/immunologic complaints Reports system reviewed and no additional complaints, except as documented and Reports Abnormal speech present [facility] Past Medical History Medical History Pressure injury of buttock, stage 2 Chronic respiratory failure with hypoxia Vitamin D deficiency Psoriasis Hyperlipidemia HTN (hypertension) Anemia Cataract, right eye GERD (gastroesophageal reflux disease) Cocaine abuse in remission Antisocial personality disorder Alcohol dependence in remission Blind right eye Pulmonary fibrosis CHF (congestive heart failure) COPD (chronic obstructive pulmonary disease) Social History Social History Household Members: None Housing: Group Home Do you presently have visiting nurse or other home services: No Unable to assess alcohol history related to: Unknown Alcohol intake: former Patient Tobacco Use Status: Tobacco use Unknown Smoked in Last 30 Days: No e-Cigarette/Vaping Use: Never Used Second Hand Smoke Exposure: No Use of substances other than those prescribed or required for medical reasons: No Advance Directives: No Advance Directives Information Provided: No service: No Current occupational status: disabled Physical Exam ED Vital Signs: Vital Signs - 24 hr 05/31/23 22:22 05/31/23 22:32 05/31/23 22:54 Temperature 102.6 F H Pulse Rate 102 H 104 H Respiratory Rate 22 H 25 H Blood Pressure 135/84 125/45 L Pulse Oximetry 90 L 95 91 L Oxygen Delivery Method Room Air Nasal Cannula Nasal Cannula Oxygen Flow Rate 2 4 05/31/23 23:28 Temperature 99.1 F Pulse Rate 93 Respiratory Rate 20 Blood Pressure 123/54 L Pulse Oximetry 94 Oxygen Delivery Method Nasal Cannula Oxygen Flow Rate 2 BMI result Body Mass Index 33.8 Vital signs have been reviewed and appear to be correct. Blood pressure elevated. Tachycardia. Respiratory rate elevated. Febrile Oxygen saturation normal. Appearance: Alert. No acute distress. Head: Normal external exam. Normocephalic. Atraumatic. No [place] signs noted. No raccoon eyes noted Eyes: PERRLA. EOMI. Conjunctiva and sclera normal. Eyelids normal. ENT: TM's Normal. Pharynx normal. Uvula midline. Moist mucous membranes. No trismus noted. No drooling noted. No muffled voice noted. Neck: Normal inspection. Neck supple. FROM. No adenopathy. Thyroid Normal. No meningeal signs. No neck mass noted. CVS: Normal heart rate and rhythm. Heart sound normal. No murmurs noted. Pulses normal throughout. Respiratory: No respiratory distress. Painless inspiration. Breath sounds normal. No wheezes/rales/rhonchi noted. Chest nontender. No accessory muscle usage noted or decreased air movement noted. Abdomen: Soft and nontender. Bowel sounds normal in all 4 quadrants. No distention noted. No organomegaly noted. No visible injury noted. Back: No CVA tenderness. Full range of motion noted. Skin: Skin warm and dry. Normal skin color. Normal skin turgor. No rashes/lesions/lacerations noted. Extremities: No lower extremity edema. Extremities exhibit normal range of motion. Extremities nontender. Neuro: Cranial nerve exam: II-XII are grossly intact No motor deficit. No sensory deficit. Reflexes normal. Course Course Course Narrative: 67-year-old male history of COPD recent diagnosis with COVID came in with worsening of breathing status and hypoxia patient at baseline does not use supplemental oxygen needing supplemental oxygen while in the emergency department. Patient meet criteria for SIRS which is secondary to underlying viral infection therefore no sepsis protocol is activated. Will check ABG. Reevaluation(s) Reevaluation #1: No sepsis patient's hypoxia is secondary to COVID infection, no CO2 retention, no source of bacterial infection, patient require supplemental oxygen to keep oxygenation level above 90. Admit to continue with the supplemental oxygen via nasal cannula. Time: 00:07 Medications Administered Generic Name Dose Route Start Last Admin Trade Name Freq PRN Reason Stop Dose Admin Sodium Chloride 1,000 mls @ 999 mls/hr 05/31/23 23:17 05/31/23 23:18 Ns IV 06/01/23 00:17 999 mls/hr .Q1H1M ONE Administration Medical Decision Making Differential Diagnosis Differential Diagnoses: The differential diagnosis associated with the presentation includes (COPD exacerbation, pneumonia, sepsis, acute on chronic respiratory failure, hypercarbia, severe anemia, electrolyte abnormality.) Admission/Observation Consideration of admission/observation: Escalation of care including admission/observation considered Consult Healthcare Provider Management of the patient was discussed with: Hospitalist (Dr. Lebron) Lab Data MDM Lab Attestation statement: I reviewed the patient's lab results. 05/31/23 22:42 05/31/23 22:42 Labs: Lab Results 05/31/23 05/31/23 05/31/23 Range/Units 22:41 22:42 23:11 WBC 12.6 H (4.8-10.8) X10*3/uL RBC 5.20 (4.60-5.80) X10*6/uL Hgb 12.5 L (14.0-18.0) g/dl Hct 39.7 L (42.0-52.0) % MCV 76.3 L (80.0-98.0) fL MCH 24.0 L (27.0-33.0) pg MCHC 31.5 (31.0-36.0) g/dl RDW 15.9 (11.0-16.0) % Plt Count 229 (160-400) X10*3/uL MPV 10.4 (9.4-12.4) fL Immature Gran % (Auto) 0.5 H (0.0-0.4) % Neut % (Auto) 71.0 (45-73) % Lymph % (Auto) 13.2 L (20-40) % [place] % (Auto) 14.8 H (2-11) % Eos % (Auto) 0.1 (0-4) % Baso % (Auto) 0.4 (0-2) % Lymph # (Auto) 1.7 (1.2-4.9) X10*3/uL [place] # (Auto) 1.9 H (0.1-1.2) X10*3/uL Eos # (Auto) 0.0 (0.0-0.4) X10*3/uL Baso # (Auto) 0.1 (0.0-0.2) X10*3/uL Abs Immat Gran (auto) 0.06 H (0.00-0.03) X10*3/uL Absolute Neuts (auto) 9.0 H (2.0-8.3) x10*3/uL Absolute Nucleated RBC 0.000 (0.0-0.012) X10*3/uL Nucleated RBC % (auto) 0.0 (0.0-0.2) /100WBC Smear Tech's Comments VERIFIED O2 Saturation % ABG pH at Pt Temp (7.35-7.45) ABG pCO2 at Pt Temp (32-45) mmHg ABG pO2 at Pt Temp (83-108) mmHg ABG HCO3 (22-26) mmol/L ABG Base Excess (Actual) mmol/L Sodium 139 (135-145) mmol/L Potassium 4.2 (3.3-5.1) mmol/L Chloride 103 (96-108) mmol/L Carbon Dioxide 24 (22-29) mmol/L Anion Gap 16 (12-20) BUN 12 (9-16) mg/dL Creatinine 0.67 (0.5-1.4) mg/dL Estim Creat Clear Calc 130.5 Estimated GFR > 60 Random Glucose 169 H (60-115) mg/dL Lactic Acid 1.3 (0.5-2.0) mmol/L Calcium 9.0 (8.4-10.2) mg/dL Total Bilirubin 0.4 (0.0-1.0) mg/dL AST 21 (5-37) U/L ALT 9 (0-40) U/L Alkaline Phosphatase 76 (39-117) U/L Total Protein 7.8 (6.5-8.0) g/dL Albumin 3.6 (3.5-5.0) g/dL Urine Color Dark Yellow Urine Appearance Clear Urine pH 6.0 (5.0-9.0) Ur Specific [place] >= 1.030 H (1.005-1.025) Urine Protein 300 (3+) H (Neg-Trace) mg/dL Urine Glucose (UA) Negative (Negative) mg/dL Urine Ketones 15 (Negative) mg/dL Urine Blood Negative (Negative) Urine Nitrite Negative (Negative) Ur Leukocyte Esterase Negative (Negative) Urine RBC 0-2 (0-2) /HPF Urine WBC 0-5 (0-5) /HPF Ur Squamous Epith Cells 0-2 (0-2) /HPF Urine Bacteria None Seen (None Seen) Hyaline Casts 0-2 (0-2) /LPF COVID-19 (JULIO) Positive A (Negative) COVID-19 Clin Com See Note Influenza Type A (VIVEK) Negative (Negative) Influenza Type B (VIVEK) Negative (Negative) Influenza A & B Note See Note 05/31/23 Range/Units 23:52 WBC (4.8-10.8) X10*3/uL RBC (4.60-5.80) X10*6/uL Hgb (14.0-18.0) g/dl Hct (42.0-52.0) % MCV (80.0-98.0) fL MCH (27.0-33.0) pg MCHC (31.0-36.0) g/dl RDW (11.0-16.0) % Plt Count (160-400) X10*3/uL MPV (9.4-12.4) fL Immature Gran % (Auto) (0.0-0.4) % Neut % (Auto) (45-73) % Lymph % (Auto) (20-40) % [place] % (Auto) (2-11) % Eos % (Auto) (0-4) % Baso % (Auto) (0-2) % Lymph # (Auto) (1.2-4.9) X10*3/uL [place] # (Auto) (0.1-1.2) X10*3/uL Eos # (Auto) (0.0-0.4) X10*3/uL Baso # (Auto) (0.0-0.2) X10*3/uL Abs Immat Gran (auto) (0.00-0.03) X10*3/uL Absolute Neuts (auto) (2.0-8.3) x10*3/uL Absolute Nucleated RBC (0.0-0.012) X10*3/uL Nucleated RBC % (auto) (0.0-0.2) /100WBC Smear Tech's Comments O2 Saturation 96.0 % ABG pH at Pt Temp 7.44 (7.35-7.45) ABG pCO2 at Pt Temp 38 (32-45) mmHg ABG pO2 at Pt Temp 84 (83-108) mmHg ABG HCO3 26 (22-26) mmol/L ABG Base Excess (Actual) 2.7 mmol/L Sodium (135-145) mmol/L Potassium (3.3-5.1) mmol/L Chloride (96-108) mmol/L Carbon Dioxide (22-29) mmol/L Anion Gap (12-20) BUN (9-16) mg/dL Creatinine (0.5-1.4) mg/dL Estim Creat Clear Calc Estimated GFR Random Glucose (60-115) mg/dL Lactic Acid (0.5-2.0) mmol/L Calcium (8.4-10.2) mg/dL Total Bilirubin (0.0-1.0) mg/dL AST (5-37) U/L ALT (0-40) U/L Alkaline Phosphatase (39-117) U/L Total Protein (6.5-8.0) g/dL Albumin (3.5-5.0) g/dL Urine Color Urine Appearance Urine pH (5.0-9.0) Ur Specific [place] (1.005-1.025) Urine Protein (Neg-Trace) mg/dL Urine Glucose (UA) (Negative) mg/dL Urine Ketones (Negative) mg/dL Urine Blood (Negative) Urine Nitrite (Negative) Ur Leukocyte Esterase (Negative) Urine RBC (0-2) /HPF Urine WBC (0-5) /HPF Ur Squamous Epith Cells (0-2) /HPF Urine Bacteria (None Seen) Hyaline Casts (0-2) /LPF COVID-19 (JULIO) (Negative) COVID-19 Clin Com Influenza Type A (VIVEK) (Negative) Influenza Type B (VIVEK) (Negative) Influenza A & B Note Independent Interpretation I performed an independent interpretation of an: Plain X-Ray (No acute pneumonia) Radiology Impression Discussion of test interpretation with radiology: I have reviewed the radiologist's reading. Chronic Conditions Patient?s care impacted by: Other (COPD, chronic respiratory failure.) Discharge Plan Discharge Clinical Impression: COVID-19, Hypoxia Patient Disposition: Admitted As Inpatient
--- NOTE | 2023-05-31 23:15 | PC.NURSE ---
mathis catheter placed at this time, 500cc dark kajal colored urine noted. pt tolerated well.
[2023-05-31 23:18] VITALS: O2SAT 98
--- NOTE | 2023-05-31 23:27 | PC.NURSE ---
first dose of antibiotics hung at this time.
[2023-05-31 23:28] VITALS: BP 123/54; PULSE 93; RESP 20; TEMP 37.3; O2SAT 94
--- NOTE | 2023-05-31 23:28 | PC.NURSE ---
sepsis alert hour one called ahead, vital signs updated at this time.
[2023-06-01] VITALS (9 sets, daily range): BP systolic 113–148; BP diastolic 56–79; PULSE 62–95; RESP 14–24; TEMP 36.2–38; O2SAT 91–95; BMI 33.2
--- NOTE | 2023-06-01 00:18 | PM.IMHP ---
History of Present Illness Date of Service: 06/01/23 Chief Complaint: Dyspnea This is a 69-year-old male with pertinent history of insulin-dependent diabetes mellitus, congestive heart failure with preserved ejection fraction, essential hypertension, mixed hyperlipidemia, COPD not on home oxygen, mood disorder, substance use disorder who was sent to the emergency department for evaluation of dyspnea and hypoxemia. Unable to obtain history from the patient due to underlying mood disorder. As per the facility, patient is mentating at his baseline. He intermittently responds in with one-word answers. Unable to have a full conversation. Patient was diagnosed with COVID-19 infection 2 days prior to presentation. His breathing worsened over the last 2 days and he was found to be hypoxemic at the nursing facility and hence sent to the ER for further evaluation. Unable to obtain review of systems. In the emergency department, patient requiring 2 L supplemental oxygen. Review of Systems Review of Systems: Yes Unobtainable due to mental condition [facility] Medical History Pressure injury of buttock, stage 2 Chronic respiratory failure with hypoxia Vitamin D deficiency Psoriasis Hyperlipidemia HTN (hypertension) Anemia Cataract, right eye GERD (gastroesophageal reflux disease) Cocaine abuse in remission Antisocial personality disorder Alcohol dependence in remission Blind right eye Pulmonary fibrosis CHF (congestive heart failure) COPD (chronic obstructive pulmonary disease) Social History Household Members: None Housing: [facility] Do you presently have visiting nurse or other home services: No Unable to assess alcohol history related to: Unknown Alcohol intake: former Patient Tobacco Use Status: Tobacco use Unknown Smoked in Last 30 Days: No e-Cigarette/Vaping Use: Never Used Second Hand Smoke Exposure: No Use of substances other than those prescribed or required for medical reasons: No Advance Directives: No Advance Directives Information Provided: No service: No Current occupational status: disabled Meds Allergies Allergy/AdvReac Type Severity Reaction Status Date / Time Penicillins [PCN] Allergy Unknown Verified 01/08/22 10:26 Active Medications: Current Medications Acetaminophen (Acetaminophen 325 Mg Tablet) 650 mg PO Q6H PRN PRN Reason: Pain, Mild (Pain Scale 1-3) Dexamethasone (Dexamethasone 6 Mg Tablet) 6 mg PO DAILY JOVI Dextrose (Dextrose 50 % 25 Gm/50 Ml Syringe) 25 gm IVPUSH Q15M PRN; Protocol PRN Reason: per Hypoglycemia Standing Ord. Enoxaparin Sodium (Enoxaparin Sodium 40 Mg/0.4 Ml Syringe) 40 mg SUBCUT Q24H [facility] Glucose (Glucose Gel 15 Gm Gel..Gram.) 15 gm PO Q15M PRN; Protocol PRN Reason: per Hypoglycemia Standing Ord. Sodium Chloride (Ns) 1,000 mls @ 999 mls/hr IV .Q1H1M ONE Stop: 06/01/23 00:17 Last Admin: 05/31/23 23:18 Dose: 999 mls/hr Insulin Human Lispro (Insulin Lispro 100 Unit/Ml 3 Ml Vial) 0 unit SUBCUT QIDACHS [facility]; Protocol Melatonin (Melatonin 3 Mg Tablet) 6 mg PO BEDTIME PRN PRN Reason: Insomnia Ondansetron HCl (Ondansetron Hcl 4 Mg/2 Ml Vial) 4 mg IVPUSH Q8H PRN PRN Reason: Nausea and Vomiting Sodium Chloride (0.9 % Sodium Chloride Flush 3 Ml Syringe) [facility] Medications Medication Instructions Recorded Confirmed Last Taken Type acetaminophen 325 mg tablet 650 mg PO Q4H PRN PAIN/ FEVER 02/03/21 01/08/22 05/29/23 History (Tylenol) aluminum-mag hydroxide-simethicone 30 ml PO Q6H PRN Gastric Reflux 02/03/21 01/08/22 05/29/23 History 200 mg-200 mg-20 mg/5 mL oral susp aspirin 81 mg tablet,delayed 81 mg PO DAILY 02/03/21 05/30/23 05/29/23 History release (Titus Low Dose Aspirin) atorvastatin 40 mg tablet 80 mg PO BEDTIME 02/03/21 05/30/23 05/29/23 History bisacodyl 10 mg rectal suppository 10 mg ID DAILY PRN Constipation 02/03/21 05/30/23 05/29/23 History bisacodyl 5 mg tablet,delayed 5 mg PO Q24H PRN Constipation 02/03/21 05/30/23 05/29/23 History release docusate sodium 100 mg capsule 200 mg PO BEDTIME 02/03/21 05/30/23 05/29/23 History (Colace) furosemide 40 mg tablet (Lasix) 40 mg PO DAILY 06/05/30/23 05/29/23 History magnesium hydroxide 400 mg/5 mL 30 ml PO DAILY PRN Constipation 02/03/21 05/30/23 05/29/23 History oral suspension (Milk of Magnesia) magnesium oxide 400 mg PO TID 02/03/21 05/30/23 05/29/23 History metformin 1,000 mg tablet 1,000 mg PO BID 02/03/21 05/30/23 05/29/23 History polyethylene glycol 3350 17 8.5 g PO DAILY 02/03/21 05/30/23 05/29/23 History gram/dose oral powder (Miralax) tiotropium bromide 1.25 2 puff inhalation DAILY 02/03/21 05/30/23 05/29/23 History mcg/actuation mist for inhalation (Spiriva Respimat) insulin detemir U-100 100 unit/mL 38 unit subcut BEDTIME 01/08/22 05/30/23 05/29/23 History subcutaneous solution (Levemir U-100 Insulin) metoprolol succinate 25 mg 25 mg PO DAILY 01/08/22 05/30/23 05/29/23 History tablet,extended release 24 hr olanzapine 10 mg tablet 10 mg PO BID 01/08/22 05/30/23 05/29/23 History cholecalciferol (vitamin D3) 1,250 1,250 mcg PO QMONTH 05/30/23 05/30/23 05/10/23 History mcg (50,000 unit) tablet Physical Exam Vital Signs and Narrative: Vital Signs: Last Vital Signs Temp 99.1 F 05/31/23 23:28 Pulse 93 05/31/23 23:28 Resp 20 05/31/23 23:28 BP 123/54 L 05/31/23 23:28 Pulse Ox 94 05/31/23 23:28 O2 Del Method Nasal Cannula 05/31/23 23:28 O2 Flow Rate 2 05/31/23 23:28 BMI result Body Mass Index 33.8 Middle-aged male lying in bed in mild distress on supplemental oxygen Neck supple, no JVD Regular rate and rhythm, S1-S2 heard Bilateral mild inspiratory crackles without wheezing Abdomen soft nontender, no guarding, no rigidity Patient is awake, alert and has intermittent 1 word responses, unable to assess orientation, unable to have a conversation. Psych: Normal mood No pedal edema Results Labs 05/31/23 22:42 05/31/23 22:42 Labs: Laboratory Results - last 24 hr 05/31/23 05/31/23 05/31/23 22:41 22:42 23:11 MCV 76.3 L MCH 24.0 L MCHC 31.5 RDW 15.9 Plt Count 229 MPV 10.4 Immature Gran % (Auto) 0.5 H Neut % (Auto) 71.0 Lymph % (Auto) 13.2 L [place] % (Auto) 14.8 H Eos % (Auto) 0.1 Baso % (Auto) 0.4 Lymph # (Auto) 1.7 [place] # (Auto) 1.9 H Eos # (Auto) 0.0 Baso # (Auto) 0.1 Abs Immat Gran (auto) 0.06 H Absolute Neuts (auto) 9.0 H Absolute Nucleated RBC 0.000 Nucleated RBC % (auto) 0.0 Smear Tech's Comments VERIFIED O2 Saturation ABG pH at Pt Temp ABG pCO2 at Pt Temp ABG pO2 at Pt Temp ABG HCO3 ABG Base Excess (Actual) Anion Gap 16 Estim Creat Clear Calc 130.5 Estimated GFR > 60 Random Glucose 169 H Lactic Acid 1.3 Calcium 9.0 Total Bilirubin 0.4 AST 21 ALT 9 Alkaline Phosphatase 76 Total Protein 7.8 Albumin 3.6 Urine Color Dark Yellow Urine Appearance Clear Urine pH 6.0 Ur Specific [place] >= 1.030 H Urine Protein 300 (3+) H Urine Glucose (UA) Negative Urine Ketones 15 Urine Blood Negative Urine Nitrite Negative Ur Leukocyte Esterase Negative Urine RBC 0-2 Urine WBC 0-5 Ur Squamous Epith Cells 0-2 Urine Bacteria None Seen Hyaline Casts 0-2 COVID-19 (JULIO) Positive A COVID-19 Clin Com See Note Influenza Type A (VIVEK) Negative Influenza Type B (VIVEK) Negative Influenza A & B Note See Note 05/31/23 23:52 MCV MCH MCHC RDW Plt Count MPV Immature Gran % (Auto) Neut % (Auto) Lymph % (Auto) [place] % (Auto) Eos % (Auto) Baso % (Auto) Lymph # (Auto) [place] # (Auto) Eos # (Auto) Baso # (Auto) Abs Immat Gran (auto) Absolute Neuts (auto) Absolute Nucleated RBC Nucleated RBC % (auto) Smear Tech's Comments O2 Saturation 96.0 ABG pH at Pt Temp 7.44 ABG pCO2 at Pt Temp 38 ABG pO2 at Pt Temp 84 ABG HCO3 26 ABG Base Excess (Actual) 2.7 Anion Gap Estim Creat Clear Calc Estimated GFR Random Glucose Lactic Acid Calcium Total Bilirubin AST ALT Alkaline Phosphatase Total Protein Albumin Urine Color Urine Appearance Urine pH Ur Specific [place] Urine Protein Urine Glucose (UA) Urine Ketones Urine Blood Urine Nitrite Ur Leukocyte Esterase Urine RBC Urine WBC Ur Squamous Epith Cells Urine Bacteria Hyaline Casts COVID-19 (JULIO) COVID-19 Clin Com Influenza Type A (VIVEK) Influenza Type B (VIVEK) Influenza A & B Note Imaging Radiologist's Impressions: Impressions Chest X-Ray 05/31/23 22:31 IMPRESSION: Mild cardiomegaly. No acute intrathoracic disease. Assessment and Plan (1) Hypoxia: Status: Acute (2) COVID-19: Status: Acute Plan This is a 69-year-old male with pertinent history of insulin-dependent diabetes mellitus, congestive heart failure with preserved ejection fraction, essential hypertension, mixed hyperlipidemia, COPD not on home oxygen, mood disorder, substance use disorder who was sent to the emergency department for evaluation of dyspnea and hypoxemia. #. Acute hypoxemic respiratory failure and sepsis due to COVID-19 infection. Will admit patient with trach isolation precautions. Initiating dexamethasone 6 mg daily. Continue to monitor oxygen saturation and wean as tolerated. Maintain oxygen saturation greater than 88%. No concern for secondary bacterial superinfection, defer antibiotics. Resuscitated with IV crystalloids in the ER. Blood cultures pending #. Schizoaffective disorder. On olanzapine and Depakote #. COPD: No exacerbation during admission. Continue home inhaler #. Congestive heart failure with preserved ejection fraction. No decompensation during admission. Continue home Lasix dose #. Mixed hyperlipidemia. On statin #. Insulin-dependent diabetes mellitus. Initiating basal plus insulin regimen Med rec pending DVT prophylaxis: Lovenox Full code Admit as inpatient and will require two night minimum hospital stay for supplemental oxygen Time Spent With Patient Time: Total time managing care of this patient today ____ minutes. Quality Stroke Does the patient have a stroke diagnosis?: No VTE Prior VTE?: No VTE Risk Level:: Medical - moderate - high VTE Device Contraindication: Treatment Not Indicated VTE Drug Contraindication: N/A - Med Ordered
--- NOTE | 2023-06-01 00:59 | PC.NURSE ---
fluids completed at this time. pt more alert and able to follow simple commands.
--- NOTE | 2023-06-01 01:04 | PC.NURSE ---
hospitalist verbal order not to repeat a second lactic on pt.
--- NOTE | 2023-06-01 01:31 | PC.NURSE ---
this rn called [facility] for an update on pt. report given that pt will be admitted at this time. confirmed that pt did not receive any night time medications at [facility] prior to pt arrival to the ED.
--- NOTE | 2023-06-01 01:52 | PC.NURSE ---
pt took oral medications well without any difficulty swallowing.
--- NOTE | 2023-06-01 06:08 | PC.NURSE ---
pt increased to 4L nasal cannula at this time, pt sating between 90-92%. dr.[email or web address] pozo.
--- NOTE | 2023-06-01 08:24 | PC.NURSE ---
Initial contact with pt. pt medicated per order, able to swallow pills without difficulty. pt fed about 30% of his breakfast.
--- NOTE | 2023-06-01 08:32 | PHA.MEDREC ---
Pharmacy Consult ? Medication Reconciliation Pharmacy has completed the medication reconciliation.MED REC COMPLETE USING LIST FROM [facility]
[2023-06-01 10:06] LABS: Anion Gap 14 (12-20); Blood Urea Nitrogen 11 mg/dL (9-16); Calcium 8.8 mg/dL (8.4-10.2); Carbon Dioxide 25 mmol/L (22-29); Chloride 103 mmol/L (96-108); Creatinine Clr Calc Pharmacy 134.5; Estimated Glomerular Filt Rate > 60; Glucose Random 211 mg/dL (60-115); Potassium 4.1 mmol/L (3.3-5.1); Sodium 138 mmol/L (135-145)
--- NOTE | 2023-06-01 10:38 | MHC.CM.PN ---
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
--- NOTE | 2023-06-01 15:35 | HO.PM.IMPN ---
Subjective Subjective Date of Service: 06/01/23 Interval History: No acute issues overnight. Breathing at baseline per notes Review of Systems Unable to obtain Physical Exam Vital Signs: Vital Signs: Last Vital Signs Temp 98.6 F 06/01/23 14:26 Pulse 80 06/01/23 14:26 Resp 20 06/01/23 14:26 BP 133/66 06/01/23 14:26 Pulse Ox 95 06/01/23 14:26 O2 Del Method Nasal Cannula 06/01/23 14:26 O2 Flow Rate 3 06/01/23 14:26 BMI result Body Mass Index 33.2 Const: Other: Awake alert. Minimally verbal Resp: Other: Diminished with diffuse expiratory wheezes Cardio: Other: No S4; positive S1-S2; no S3 murmurs rubs or gallops GI: Other: Soft nontender nondistended normoactive bowel sounds Extrem: Other: No edema bilaterally Objective Data Active Medications Acetaminophen (Acetaminophen 325 Mg Tablet) 650 mg PO Q6H PRN PRN Reason: Pain, Mild (Pain Scale 1-3) Dexamethasone (Dexamethasone 6 Mg Tablet) 6 mg PO DAILY [facility] Last Admin: 06/01/23 07:50 Dose: 6 mg Documented By: SENG Dextrose (Dextrose 50 % 25 Gm/50 Ml Syringe) 25 gm IVPUSH Q15M PRN; Protocol PRN Reason: per Hypoglycemia Standing Ord. Enoxaparin Sodium (Enoxaparin Sodium 40 Mg/0.4 Ml Syringe) 40 mg SUBCUT Q24H [facility] Last Admin: 06/01/23 07:50 Dose: 40 mg Documented By: SENG Glucose (Glucose Gel 15 Gm Gel..Gram.) 15 gm PO Q15M PRN; Protocol PRN Reason: per Hypoglycemia Standing Ord. Insulin Human Lispro (Insulin Lispro 100 Unit/Ml 3 Ml Vial) 0 unit SUBCUT QIDACHS [facility]; Protocol Last Admin: 06/01/23 12:07 Dose: 2 unit Documented By: SENG Melatonin (Melatonin 3 Mg Tablet) 6 mg PO BEDTIME PRN PRN Reason: Insomnia Ondansetron HCl (Ondansetron Hcl 4 Mg/2 Ml Vial) 4 mg IVPUSH Q8H PRN PRN Reason: Nausea and Vomiting Sodium Chloride (0.9 % Sodium Chloride Flush 3 Ml Syringe) 3 ml IVFLUSH QSHIFT [facility] Last Admin: 06/01/23 07:54 Dose: Not Given Documented By: SENG Non-Admin Reason: assessed no acion needed Labs 06/01/23 09:39 06/01/23 09:39 Labs: Laboratory Results - last 24 hr 05/31/23 05/31/23 05/31/23 22:41 22:42 23:11 MCV 76.3 L MCH 24.0 L MCHC 31.5 RDW 15.9 Plt Count 229 MPV 10.4 Immature Gran % (Auto) 0.5 H Neut % (Auto) 71.0 Lymph % (Auto) 13.2 L [place] % (Auto) 14.8 H Eos % (Auto) 0.1 Baso % (Auto) 0.4 Lymph # (Auto) 1.7 [place] # (Auto) 1.9 H Eos # (Auto) 0.0 Baso # (Auto) 0.1 Abs Immat Gran (auto) 0.06 H Absolute Neuts (auto) 9.0 H Absolute Nucleated RBC 0.000 Nucleated RBC % (auto) 0.0 Smear Tech's Comments VERIFIED O2 Saturation ABG pH at Pt Temp ABG pCO2 at Pt Temp ABG pO2 at Pt Temp ABG HCO3 ABG Base Excess (Actual) Anion Gap 16 Estim Creat Clear Calc 130.5 Estimated GFR > 60 POC Glucose Random Glucose 169 H Lactic Acid 1.3 Calcium 9.0 Total Bilirubin 0.4 AST 21 ALT 9 Alkaline Phosphatase 76 Total Protein 7.8 Albumin 3.6 Urine Color Dark Yellow Urine Appearance Clear Urine pH 6.0 Ur Specific [place] >= 1.030 H Urine Protein 300 (3+) H Urine Glucose (UA) Negative Urine Ketones 15 Urine Blood Negative Urine Nitrite Negative Ur Leukocyte Esterase Negative Urine RBC 0-2 Urine WBC 0-5 Ur Squamous Epith Cells 0-2 Urine Bacteria None Seen Hyaline Casts 0-2 COVID-19 (JULIO) Positive A COVID-19 Clin Com See Note Influenza Type A (VIVEK) Negative Influenza Type B (VIVEK) Negative Influenza A & B Note See Note 05/31/23 06/01/23 06/01/23 23:52 00:52 07:25 MCV MCH MCHC RDW Plt Count MPV Immature Gran % (Auto) Neut % (Auto) Lymph % (Auto) [place] % (Auto) Eos % (Auto) Baso % (Auto) Lymph # (Auto) [place] # (Auto) Eos # (Auto) Baso # (Auto) Abs Immat Gran (auto) Absolute Neuts (auto) Absolute Nucleated RBC Nucleated RBC % (auto) Smear Tech's Comments O2 Saturation 96.0 ABG pH at Pt Temp 7.44 ABG pCO2 at Pt Temp 38 ABG pO2 at Pt Temp 84 ABG HCO3 26 ABG Base Excess (Actual) 2.7 Anion Gap Estim Creat Clear Calc Estimated GFR POC Glucose 174 H 169 H Random Glucose Lactic Acid Calcium Total Bilirubin AST ALT Alkaline Phosphatase Total Protein Albumin Urine Color Urine Appearance Urine pH Ur Specific [place] Urine Protein Urine Glucose (UA) Urine Ketones Urine Blood Urine Nitrite Ur Leukocyte Esterase Urine RBC Urine WBC Ur Squamous Epith Cells Urine Bacteria Hyaline Casts COVID-19 (JULIO) COVID-19 Clin Com Influenza Type A (VIVEK) Influenza Type B (VIVEK) Influenza A & B Note 06/01/23 06/01/23 09:39 11:53 MCV 76.7 L MCH 24.4 L MCHC 31.8 RDW 15.9 Plt Count 198 MPV 10.4 Immature Gran % (Auto) 0.9 H Neut % (Auto) 79.9 H Lymph % (Auto) 11.8 L [place] % (Auto) 7.0 Eos % (Auto) 0.1 Baso % (Auto) 0.3 Lymph # (Auto) 1.1 L [place] # (Auto) 0.7 Eos # (Auto) 0.0 Baso # (Auto) 0.0 Abs Immat Gran (auto) 0.09 H Absolute Neuts (auto) 7.6 Absolute Nucleated RBC 0.000 Nucleated RBC % (auto) 0.0 Smear Tech's Comments O2 Saturation ABG pH at Pt Temp ABG pCO2 at Pt Temp ABG pO2 at Pt Temp ABG HCO3 ABG Base Excess (Actual) Anion Gap 14 Estim Creat Clear Calc 134.5 Estimated GFR > 60 POC Glucose 197 H Random Glucose 211 H Lactic Acid Calcium 8.8 Total Bilirubin AST ALT Alkaline Phosphatase Total Protein Albumin Urine Color Urine Appearance Urine pH Ur Specific [place] Urine Protein Urine Glucose (UA) Urine Ketones Urine Blood Urine Nitrite Ur Leukocyte Esterase Urine RBC Urine WBC Ur Squamous Epith Cells Urine Bacteria Hyaline Casts COVID-19 (JULIO) COVID-19 Clin Com Influenza Type A (VIVEK) Influenza Type B (VIVEK) Influenza A & B Note Assessment and Plan (1) Hypoxia: Status: Acute (2) COVID-19: Status: Acute (3) COPD (chronic obstructive pulmonary disease): Status: Acute (4) Chronic systolic CHF (congestive heart failure): Status: Acute Plan This is a 69-year-old male with pertinent history of insulin-dependent diabetes mellitus, congestive heart failure with preserved ejection fraction, essential hypertension, mixed hyperlipidemia, COPD not on home oxygen, mood disorder, substance use disorder who was sent to the emergency department for evaluation of dyspnea and hypoxemia likely secondary to COVID 1.Acute hypoxemic respiratory failure(sepsis resolved) due to COVID-19 infection. -supplemental O2 to maintain sats greater than equal 88% -Decadron 6 mg daily -DuoNebs p.r.n. 2.Schizoaffective disorder -olanzapine and Depakote 3.Chronic Systolic Congestive heart failure with preserved ejection fraction -not an issue this admission -continue outpatient therapies 4.DMII -acceptable control on current therapies -lispro correctional scale -adjust as indicated Lovenox Full code Requires ongoing hospitalization for IV steroids to treat acute hypoxic respiratory failure Time Spent With Patient Time: Total time managing care of this patient today ____ minutes. Quality Stroke Does the patient have a stroke diagnosis?: No VTE Prior VTE?: No VTE Risk Level:: Medical - moderate - high VTE Device Contraindication: Treatment Not Indicated VTE Drug Contraindication: N/A - Med Ordered
[2023-06-01 16:35] LABS: Glucose, Whole Blood 174 mg/dL (60-115)
[2023-06-01] MEDS: Insulin Lispro 100 UNIT/ML 3 ML VIAL SUBCUT ×2 (18:01→21:21)
[2023-06-01] MEDS: Atorvastatin Calcium 80 MG TABLET PO (20:04)
[2023-06-01] MEDS: OLANZapine 10 MG TABLET PO (20:04)
[2023-06-01] MEDS: Docusate Sodium 100 MG CAPSULE 200 MG PO (20:04)
[2023-06-01] MEDS: Divalproex Sodium 500 MG TABLET.DR 1000 MG PO (20:04)
[2023-06-01] MEDS: Magnesium Oxide 400 MG TABLET PO (20:04)
[2023-06-01 20:52] LABS: Glucose, Whole Blood 235 mg/dL (60-115)
[2023-06-01] MEDS: Insulin Glargine,Hum.rec.anlog 100 UNIT/ML 10 ML VIAL 26 UNIT SUBCUT (21:22)
[2023-06-01 23:48] LABS: Glucose, Whole Blood 178 mg/dL (60-115)
[2023-06-02 03:18] VITALS: BP 132/61; PULSE 71; RESP 20; TEMP 36.6; O2SAT 92
[2023-06-02 07:32] LABS: MANUAL DIFF FLAG NO
[2023-06-02 07:44] LABS: Basophils Percent Auto 0.5 % (0-2); Eosinophils Percent Auto 0.2 % (0-4); Hematocrit 37.4 % (42.0-52.0); Hemoglobin 11.4 g/dl (14.0-18.0); Imm Gran Abs Auto 0.03 X10*3/uL (0.00-0.03); Imm Gran Pct Auto 0.4 % (0.0-0.4); Lymphocytes Absolute Auto 2.4 X10*3/uL (1.2-4.9); Lymphocytes Percent Auto 28.9 % (20-40); Mean Corpuscular HGB Conc 30.5 g/dl (31.0-36.0); Mean Corpuscular Hemoglobin 23.8 pg (27.0-33.0); Mean Corpuscular Volume 77.9 fL (80.0-98.0); Mean Platelet Volume 11.2 fL (9.4-12.4); Monocytes Absolute Auto 1.2 X10*3/uL (0.1-1.2); Neutrophils Absolute Auto 4.7 x10*3/uL (2.0-8.3); Platelet Count 227 X10*3/uL (160-400); Red Cell Distribution Width 15.9 % (11.0-16.0); White Blood Count 8.4 X10*3/uL (4.8-10.8)
[2023-06-02 08:00] VITALS: BP 106/60; PULSE 54; RESP 18; TEMP 36.2; O2SAT 94
[2023-06-02 08:11] LABS: Alanine Aminotransferase 10 U/L (0-40); Albumin Level 3.1 g/dL (3.5-5.0); Alkaline Phosphatase 56 U/L (39-117); Anion Gap 14 (12-20); Aspartate Amino Transferase 18 U/L (5-37); Bilirubin Total 0.2 mg/dL (0.0-1.0); Blood Urea Nitrogen 13 mg/dL (9-16); Calcium 8.8 mg/dL (8.4-10.2); Carbon Dioxide 27 mmol/L (22-29); Chloride 105 mmol/L (96-108); Creatinine Clr Calc Pharmacy 139.8; Estimated Glomerular Filt Rate > 60; Glucose Fasting 166 mg/dL (60-99); Potassium 3.8 mmol/L (3.3-5.1); Sodium 142 mmol/L (135-145); Total Protein 6.8 g/dL (6.5-8.0)
[2023-06-02 08:31] LABS: Glucose, Whole Blood 161 mg/dL (60-115)
[2023-06-02 09:32] LABS: C Reactive Protein 9.07 mg/dL (< or = 0.50)
[2023-06-02] MEDS: metFORMIN HCl 1,000 MG TABLET 1000 MG PO ×2 (09:40→16:20)
[2023-06-02] MEDS: OLANZapine 10 MG TABLET PO ×2 (09:40→21:34)
[2023-06-02] MEDS: dexAMETHasone 6 MG TABLET PO (09:40)
[2023-06-02] MEDS: Magnesium Oxide 400 MG TABLET PO ×3 (09:40→21:35)
[2023-06-02] MEDS: Insulin Lispro 100 UNIT/ML 3 ML VIAL SUBCUT ×3 (09:40→16:19)
[2023-06-02] MEDS: Aspirin Enteric Coated 81 MG TABLET.DR PO (09:40)
[2023-06-02] MEDS: Enoxaparin Sodium 40 MG/0.4 ML SYRINGE SUBCUT (09:41)
[2023-06-02] MEDS: Remdesivir 200 MG in 0.9 % Sodium Chloride 210 ML 105 MG IV (11:26)
[2023-06-02 11:30] LABS: Glucose, Whole Blood 196 mg/dL (60-115)
[2023-06-02 11:44] VITALS: BP 131/60; PULSE 71; RESP 18; TEMP 36.3; O2SAT 93
--- NOTE | 2023-06-02 13:51 | P.PNIM_ITS ---
Subjective Subjective Date of Service: 06/02/23 Interval History: pt answers simple questions in 1-word questions denies any cough or dyspnea last fever 100.4 yesterday morning at 6am Review of Systems Review of Systems: Yes all other systems are reviewed and are negative and Unobtainable due to mental status Physical Exam 2 Vital Signs: Vital Signs: Last Vital Signs Temp 97.4 F 06/02/23 11:44 Pulse 71 06/02/23 11:44 Resp 18 06/02/23 11:44 BP 131/60 06/02/23 11:44 Pulse Ox 93 06/02/23 11:44 O2 Del Method Nasal Cannula 06/02/23 11:44 O2 Flow Rate 3 06/02/23 11:44 BMI result Body Mass Index 33.2 Gen: in no acute distress HEENT: sclera anicteric, moist mucus membranes, blind in R eye Neck: supple Lungs: clear to auscultation bilaterally Heart: regular rate and rhythm, no murmurs Abd: soft, non-tender, non-distended Ext: no edema Skin: warm/well-perfused Neuro: alert, unable to assess orientation Psych: impaired insight Objective Data Active Medications Acetaminophen (Acetaminophen 325 Mg Tablet) 650 mg PO Q6H PRN PRN Reason: Pain, Mild (Pain Scale 1-3) Aspirin (Aspirin Enteric Coated 81 Mg Tablet.) 81 mg PO DAILY [facility] Last Admin: 06/02/23 09:40 Dose: 81 mg Documented By: NEW Atorvastatin Calcium (Atorvastatin Calcium 80 Mg Tablet) 80 mg PO BEDTIME [facility] Last Admin: 06/01/23 20:04 Dose: 80 mg Documented By: ATA Albuterol Sulfate 2.5 mg/ (Albuterol/Ipratropium 3 ml) 0 mg INHALE Q4H PRN PRN Reason: Wheezing Dexamethasone (Dexamethasone 6 Mg Tablet) 6 mg PO DAILY [facility] Last Admin: 06/02/23 09:40 Dose: 6 mg Documented By: NEW Dextrose (Dextrose 50 % 25 Gm/50 Ml Syringe) 25 gm IVPUSH Q15M PRN; Protocol PRN Reason: per Hypoglycemia Standing Ord. Divalproex Sodium (Divalproex Sodium 500 Mg Tablet.) 1,000 mg PO BEDTIME [facility] Last Admin: 06/01/23 20:04 Dose: 1,000 mg Documented By: ATA Docusate Sodium (Docusate Sodium 100 Mg Capsule) 200 mg PO BEDTIME [facility] Last Admin: 06/01/23 20:04 Dose: 200 mg Documented By: ATA Enoxaparin Sodium (Enoxaparin Sodium 40 Mg/0.4 Ml Syringe) 40 mg SUBCUT Q24H [facility] Last Admin: 06/02/23 09:41 Dose: 40 mg Documented By: NEW Furosemide (Furosemide 40 Mg Tablet) 40 mg PO DAILY [facility]; Protocol Last Admin: 06/02/23 09:42 Dose: Not Given Documented By: NEW Non-Admin Reason: Decreased Blood Pressure Glucose (Glucose Gel 15 Gm Gel..Gram.) 15 gm PO Q15M PRN; Protocol PRN Reason: per Hypoglycemia Standing Ord. Remdesivir 100 mg/ Sodium (Chloride) 230 mls @ 115 mls/hr IV Q24H [facility] Stop: 06/06/23 11:59 Insulin Glargine (Insulin Glargine,Hum.Rec.Anlog 100 Unit/Ml 10 Ml Vial) 26 unit SUBCUT BEDTIME [facility] Last Admin: 06/01/23 21:22 Dose: 26 unit Documented By: ATA Insulin Human Lispro (Insulin Lispro 100 Unit/Ml 3 Ml Vial) 0 unit SUBCUT QIDACHS [facility]; Protocol Last Admin: 06/02/23 12:49 Dose: 2 unit Documented By: FINESSE Magnesium Hydroxide (Milk Of Magnesia 30 Ml Oral.Susp) 30 ml PO DAILY PRN PRN Reason: Constipation Magnesium Oxide (Magnesium Oxide 400 Mg Tablet) 400 mg PO TID [facility] Last Admin: 06/02/23 09:40 Dose: 400 mg Documented By: NEW Melatonin (Melatonin 3 Mg Tablet) 6 mg PO BEDTIME PRN PRN Reason: Insomnia Metformin HCl (Metformin Hcl 1,000 Mg Tablet) 1,000 mg PO BIDWM [facility] Last Admin: 06/02/23 09:40 Dose: 1,000 mg Documented By: NEW Metoprolol Succinate (Metoprolol Succinate Er 25 Mg Tab.Er.24h) 25 mg PO DAILY@1700 [facility]; Protocol Olanzapine (Olanzapine 10 Mg Tablet) 10 mg PO BID [facility] Last Admin: 06/02/23 09:40 Dose: 10 mg Documented By: NEW Ondansetron HCl (Ondansetron Hcl 4 Mg/2 Ml Vial) 4 mg IVPUSH Q8H PRN PRN Reason: Nausea and Vomiting Sodium Chloride (0.9 % Sodium Chloride Flush 3 Ml Syringe) 3 ml IVFLUSH QSHIFT [facility] Last Admin: 06/02/23 09:40 Dose: 3 ml Documented By: NEW Labs 06/02/23 07:10 06/02/23 07:10 Labs: Laboratory Results - last 24 hr 06/01/23 06/01/23 06/01/23 16:25 20:47 23:44 MCV MCH MCHC RDW Plt Count MPV Immature Gran % (Auto) Neut % (Auto) Lymph % (Auto) [place] % (Auto) Eos % (Auto) Baso % (Auto) Lymph # (Auto) [place] # (Auto) Eos # (Auto) Baso # (Auto) Abs Immat Gran (auto) Absolute Neuts (auto) Absolute Nucleated RBC Nucleated RBC % (auto) Anion Gap Estim Creat Clear Calc Estimated GFR POC Glucose 174 H 235 H 178 H Fasting Glucose Calcium Total Bilirubin AST ALT Alkaline Phosphatase C-Reactive Protein Total Protein Albumin 06/02/23 06/02/23 06/02/23 07:10 07:36 11:26 MCV 77.9 L MCH 23.8 L MCHC 30.5 L RDW 15.9 Plt Count 227 MPV 11.2 Immature Gran % (Auto) 0.4 Neut % (Auto) 56.0 Lymph % (Auto) 28.9 [place] % (Auto) 14.0 H Eos % (Auto) 0.2 Baso % (Auto) 0.5 Lymph # (Auto) 2.4 [place] # (Auto) 1.2 Eos # (Auto) 0.0 Baso # (Auto) 0.0 Abs Immat Gran (auto) 0.03 Absolute Neuts (auto) 4.7 Absolute Nucleated RBC 0.000 Nucleated RBC % (auto) 0.0 Anion Gap 14 Estim Creat Clear Calc 139.8 Estimated GFR > 60 POC Glucose 161 H 196 H Fasting Glucose 166 H Calcium 8.8 Total Bilirubin 0.2 AST 18 ALT 10 Alkaline Phosphatase 56 C-Reactive Protein 9.07 H Total Protein 6.8 Albumin 3.1 L Microbiology Microbiology Results: Microbiology 05/31/23 22:58 Blood Culture - Preliminary Blood - Venous No growth after 24 hours. 05/31/23 22:41 Blood Culture - Preliminary Blood - Venous No growth after 24 hours. Assessment and Plan (1) Hypoxia: Status: Acute (2) COVID-19: Status: Acute (3) COPD (chronic obstructive pulmonary disease): Status: Acute (4) Chronic systolic CHF (congestive heart failure): Status: Acute Plan d3 67yo M LTC resident [[facility]] with DM2, HFpEF, HTN, HLD, COPD, schizoaffective disorder admitted for hypoxia due to Covid-19 viral sepsis and acute hypoxic respiratory failure due to Covid-19 infection - wean O2 as tolerated - trend CRP - dexamethasone 6 mg/d 06/01-06/10/23 - remdesivir 06/01-06/05/23 - isolation precautions chronic HFpEF - continue metoprolol, furosemide DM2 - MTF, basal-bolus insulin schizoaffective disorder - olanzapine, valproate VTE ppx - LMWH dispo - eventual return to LTC In my clinical judgment, the patient requires continued inpatient hospitalization for the following reasons: hypoxia, Covid Time Spent With Patient Time: Total time managing care of this patient today __45__ minutes. Quality Stroke Does the patient have a stroke diagnosis?: No VTE Prior VTE?: No VTE Risk Level:: Medical - moderate - high VTE Device Contraindication: Treatment Not Indicated VTE Drug Contraindication: N/A - Med Ordered
[2023-06-02 15:07] VITALS: BP 143/73; PULSE 71; RESP 20; TEMP 36.8; O2SAT 95
[2023-06-02 16:17] LABS: Glucose, Whole Blood 225 mg/dL (60-115)
[2023-06-02] MEDS: Metoprolol Succinate ER 25 MG TAB.ER.24H PO (16:19)
[2023-06-02 19:33] VITALS: BP 121/60; PULSE 70; RESP 18; TEMP 36.2; O2SAT 95
[2023-06-02 20:43] LABS: Glucose, Whole Blood 188 mg/dL (60-115)
[2023-06-02] MEDS: Divalproex Sodium 500 MG TABLET.DR 1000 MG PO (21:34)
[2023-06-02] MEDS: Atorvastatin Calcium 80 MG TABLET PO (21:34)
[2023-06-02] MEDS: Insulin Glargine,Hum.rec.anlog 100 UNIT/ML 10 ML VIAL 26 UNIT SUBCUT (21:35)
[2023-06-02 23:40] VITALS: BP 120/60; PULSE 64; RESP 20; TEMP 36.2; O2SAT 96
[2023-06-03 08:00] VITALS: BP 128/74; PULSE 62; RESP 20; TEMP 36.2; O2SAT 95
[2023-06-03 08:41] LABS: Glucose, Whole Blood 148 mg/dL (60-115)
[2023-06-03] MEDS: Aspirin Enteric Coated 81 MG TABLET.DR PO (09:48)
[2023-06-03] MEDS: Enoxaparin Sodium 40 MG/0.4 ML SYRINGE SUBCUT (09:48)
[2023-06-03] MEDS: dexAMETHasone 6 MG TABLET PO (09:49)
[2023-06-03] MEDS: Furosemide 40 MG TABLET PO (09:49)
[2023-06-03] MEDS: metFORMIN HCl 1,000 MG TABLET 1000 MG PO ×2 (09:49→17:44)
[2023-06-03] MEDS: Magnesium Oxide 400 MG TABLET PO ×3 (09:49→20:53)
[2023-06-03] MEDS: OLANZapine 10 MG TABLET PO ×2 (09:49→20:54)
--- NOTE | 2023-06-03 11:01 | MHC.CM.PN ---
EMR reviewed. Per MD rounds patient not medically cleared for DC at this time. CM will continue to follow.
[2023-06-03 11:43] VITALS: BP 142/65; PULSE 74; RESP 20; TEMP 36.3; O2SAT 95
[2023-06-03 11:46] LABS: Glucose, Whole Blood 180 mg/dL (60-115)
[2023-06-03] MEDS: Remdesivir 100 MG in 0.9 % Sodium Chloride 230 ML 115 MG IV (12:14)
[2023-06-03] MEDS: Insulin Lispro 100 UNIT/ML 3 ML VIAL SUBCUT ×3 (12:14→20:51)
--- NOTE | 2023-06-03 14:44 | P.PNIM_ITS ---
Subjective Subjective Date of Service: 06/03/23 Interval History: dyspnea improved coughing no fever Review of Systems Review of Systems: Yes all other systems are reviewed and are negative Physical Exam 2 Vital Signs: Vital Signs: Last Vital Signs Temp 97.3 F 06/03/23 11:43 Pulse 74 06/03/23 11:43 Resp 20 06/03/23 11:43 BP 142/65 H 06/03/23 11:43 Pulse Ox 95 06/03/23 11:43 O2 Del Method Nasal Cannula 06/03/23 11:43 O2 Flow Rate 3 06/03/23 11:43 BMI result Body Mass Index 33.2 Gen: in no acute distress HEENT: sclera anicteric, moist mucus membranes, blind in R eye Neck: supple Lungs: clear to auscultation bilaterally Heart: regular rate and rhythm, no murmurs Abd: soft, non-tender, non-distended Ext: no edema Skin: warm/well-perfused Neuro: alert, unable to assess orientation Psych: impaired insight Objective Data Active Medications Acetaminophen (Acetaminophen 325 Mg Tablet) 650 mg PO Q6H PRN PRN Reason: Pain, Mild (Pain Scale 1-3) Aspirin (Aspirin Enteric Coated 81 Mg Tablet.) 81 mg PO DAILY [facility] Last Admin: 06/03/23 09:48 Dose: 81 mg Documented By: FINESSE Atorvastatin Calcium (Atorvastatin Calcium 80 Mg Tablet) 80 mg PO BEDTIME [facility] Last Admin: 06/02/23 21:34 Dose: 80 mg Documented By: BRYAN Albuterol Sulfate 2.5 mg/ (Albuterol/Ipratropium 3 ml) 0 mg INHALE Q4H PRN PRN Reason: Wheezing Dexamethasone (Dexamethasone 6 Mg Tablet) 6 mg PO DAILY [facility] Last Admin: 06/03/23 09:49 Dose: 6 mg Documented By: FINESSE Dextrose (Dextrose 50 % 25 Gm/50 Ml Syringe) 25 gm IVPUSH Q15M PRN; Protocol PRN Reason: per Hypoglycemia Standing Ord. Divalproex Sodium (Divalproex Sodium 500 Mg Tablet.) 1,000 mg PO BEDTIME [facility] Last Admin: 06/02/23 21:34 Dose: 1,000 mg Documented By: BRYAN Docusate Sodium (Docusate Sodium 100 Mg Capsule) 200 mg PO BEDTIME [facility] Last Admin: 06/02/23 21:38 Dose: Not Given Documented By: BRYAN Non-Admin Reason: Patient Refused Enoxaparin Sodium (Enoxaparin Sodium 40 Mg/0.4 Ml Syringe) 40 mg SUBCUT Q24H [facility] Last Admin: 06/03/23 09:48 Dose: 40 mg Documented By: FINESSE Furosemide (Furosemide 40 Mg Tablet) 40 mg PO DAILY [facility]; Protocol Last Admin: 06/03/23 09:49 Dose: 40 mg Documented By: FINESSE Glucose (Glucose Gel 15 Gm Gel..Gram.) 15 gm PO Q15M PRN; Protocol PRN Reason: per Hypoglycemia Standing Ord. Remdesivir 100 mg/ Sodium (Chloride) 230 mls @ 115 mls/hr IV Q24H [facility] Stop: 06/06/23 11:59 Last Admin: 06/03/23 12:14 Dose: 115 mls/hr Documented By: FINESSE Insulin Glargine (Insulin Glargine,Hum.Rec.Anlog 100 Unit/Ml 10 Ml Vial) 26 unit SUBCUT BEDTIME [facility] Last Admin: 06/02/23 21:35 Dose: 26 unit Documented By: BRYAN Insulin Human Lispro (Insulin Lispro 100 Unit/Ml 3 Ml Vial) 0 unit SUBCUT QIDACHS [facility]; Protocol Last Admin: 06/03/23 12:14 Dose: 2 unit Documented By: FINESSE Magnesium Hydroxide (Milk Of Magnesia 30 Ml Oral.Susp) 30 ml PO DAILY PRN PRN Reason: Constipation Magnesium Oxide (Magnesium Oxide 400 Mg Tablet) 400 mg PO TID [facility] Last Admin: 06/03/23 09:49 Dose: 400 mg Documented By: FIENSSE Melatonin (Melatonin 3 Mg Tablet) 6 mg PO BEDTIME PRN PRN Reason: Insomnia Metformin HCl (Metformin Hcl 1,000 Mg Tablet) 1,000 mg PO BIDWM [facility] Last Admin: 06/03/23 09:49 Dose: 1,000 mg Documented By: FINESSE Metoprolol Succinate (Metoprolol Succinate Er 25 Mg Tab.Er.24h) 25 mg PO DAILY@1700 [facility]; Protocol Last Admin: 06/02/23 16:19 Dose: 25 mg Documented By: FINESSE Olanzapine (Olanzapine 10 Mg Tablet) 10 mg PO BID [facility] Last Admin: 06/03/23 09:49 Dose: 10 mg Documented By: FINESSE Ondansetron HCl (Ondansetron Hcl 4 Mg/2 Ml Vial) 4 mg IVPUSH Q8H PRN PRN Reason: Nausea and Vomiting Sodium Chloride (0.9 % Sodium Chloride Flush 3 Ml Syringe) 3 ml IVFLUSH QSHIFT [facility] Last Admin: 06/03/23 09:49 Dose: 3 ml Documented By: FINESSE Labs 06/02/23 07:10 06/02/23 07:10 Labs: Laboratory Results - last 24 hr 06/02/23 06/02/23 06/03/23 16:05 20:34 08:11 POC Glucose 225 H 188 H 148 H 06/03/23 11:32 POC Glucose 180 H Microbiology Microbiology Results: Microbiology 05/31/23 22:58 Blood Culture - Preliminary Blood - Venous No growth after 48 hours. 05/31/23 22:41 Blood Culture - Preliminary Blood - Venous No growth after 48 hours. Assessment and Plan (1) Hypoxia: Status: Acute (2) COVID-19: Status: Acute (3) COPD (chronic obstructive pulmonary disease): Status: Acute (4) Chronic systolic CHF (congestive heart failure): Status: Acute Plan d4 67yo M LTC resident [[facility]] with DM2, HFpEF, HTN, HLD, COPD, schizoaffective disorder admitted for hypoxia due to Covid-19 viral sepsis and acute hypoxic respiratory failure due to Covid-19 infection - wean O2 as tolerated - trend CRP - dexamethasone 6 mg/d 06/01-06/10/23 - remdesivir 06/01-06/05/23 - isolation precautions chronic HFpEF - continue metoprolol, furosemide DM2 - MTF, basal-bolus insulin schizoaffective disorder - olanzapine, valproate VTE ppx - LMWH dispo - eventual return to LTC In my clinical judgment, the patient requires continued inpatient hospitalization for the following reasons: hypoxia, Covid Time Spent With Patient Time: Total time managing care of this patient today ___35_ minutes. Quality Stroke Does the patient have a stroke diagnosis?: No VTE Prior VTE?: No VTE Risk Level:: Medical - moderate - high VTE Device Contraindication: Treatment Not Indicated VTE Drug Contraindication: N/A - Med Ordered
[2023-06-03 16:00] VITALS: BP 117/72; PULSE 78; RESP 18; TEMP 36; O2SAT 94
[2023-06-03 16:17] LABS: Glucose, Whole Blood 208 mg/dL (60-115)
[2023-06-03] MEDS: Metoprolol Succinate ER 25 MG TAB.ER.24H PO (17:44)
[2023-06-03 19:03] VITALS: BP 134/73; PULSE 71; RESP 20; TEMP 36.2; O2SAT 96
[2023-06-03 19:59] LABS: Glucose, Whole Blood 154 mg/dL (60-115)
[2023-06-03] MEDS: Insulin Glargine,Hum.rec.anlog 100 UNIT/ML 10 ML VIAL 26 UNIT SUBCUT (20:51)
[2023-06-03] MEDS: Divalproex Sodium 500 MG TABLET.DR 1000 MG PO (20:54)
[2023-06-03] MEDS: Atorvastatin Calcium 80 MG TABLET PO (20:54)
[2023-06-04 03:38] VITALS: BP 132/68; PULSE 56; RESP 20; TEMP 36.3; O2SAT 97
--- NOTE | 2023-06-04 06:46 | PC.NURSE ---
pt refused AM lab draws
[2023-06-04 07:34] VITALS: BP 121/60; PULSE 58; RESP 18; TEMP 36.2; O2SAT 93
[2023-06-04 08:01] LABS: Glucose, Whole Blood 102 mg/dL (60-115)
[2023-06-04] MEDS: Enoxaparin Sodium 40 MG/0.4 ML SYRINGE SUBCUT (08:36)
[2023-06-04] MEDS: Magnesium Oxide 400 MG TABLET PO ×3 (08:36→20:32)
[2023-06-04] MEDS: OLANZapine 10 MG TABLET PO ×2 (08:37→20:31)
[2023-06-04] MEDS: metFORMIN HCl 1,000 MG TABLET 1000 MG PO ×2 (08:37→17:12)
[2023-06-04] MEDS: Furosemide 40 MG TABLET PO (08:37)
[2023-06-04] MEDS: Aspirin Enteric Coated 81 MG TABLET.DR PO (08:37)
[2023-06-04] MEDS: dexAMETHasone 6 MG TABLET PO (08:37)
[2023-06-04] MEDS: Remdesivir 100 MG in 0.9 % Sodium Chloride 230 ML 115 MG IV (09:05)
[2023-06-04 09:24] LABS: Hematocrit 37.3 % (42.0-52.0); Hemoglobin 11.6 g/dl (14.0-18.0); Mean Corpuscular HGB Conc 31.1 g/dl (31.0-36.0); Mean Corpuscular Hemoglobin 24.3 pg (27.0-33.0); Mean Corpuscular Volume 78.2 fL (80.0-98.0); Platelet Count 296 X10*3/uL (160-400); Red Blood Count 4.77 X10*6/uL (4.60-5.80); Red Cell Distribution Width 15.7 % (11.0-16.0); White Blood Count 11.6 X10*3/uL (4.8-10.8)
[2023-06-04 09:42] LABS: Anion Gap 16 (12-20); Blood Urea Nitrogen 18 mg/dL (9-16); C Reactive Protein 2.65 mg/dL (< or = 0.50); Calcium 8.7 mg/dL (8.4-10.2); Carbon Dioxide 31 mmol/L (22-29); Chloride 99 mmol/L (96-108); Creatinine Clr Calc Pharmacy 152.1; Estimated Glomerular Filt Rate > 60; Glucose Random 101 mg/dL (60-115); Potassium 3.5 mmol/L (3.3-5.1); Sodium 142 mmol/L (135-145)
[2023-06-04 11:23] VITALS: BP 127/79; PULSE 69; RESP 18; TEMP 36.1; O2SAT 94
[2023-06-04 11:53] LABS: Glucose, Whole Blood 124 mg/dL (60-115)
--- NOTE | 2023-06-04 13:30 | P.PNIM_ITS ---
Subjective Subjective Date of Service: 06/04/23 Interval History: coughing no fever Review of Systems Review of Systems: Yes all other systems are reviewed and are negative Physical Exam 2 Vital Signs: Vital Signs: Last Vital Signs Temp 97 F 06/04/23 11:23 Pulse 69 06/04/23 11:23 Resp 18 06/04/23 11:23 BP 127/79 06/04/23 11:23 Pulse Ox 94 06/04/23 11:23 O2 Del Method Nasal Cannula 06/04/23 11:23 O2 Flow Rate 3 06/04/23 11:23 BMI result Body Mass Index 33.2 Gen: in no acute distress HEENT: sclera anicteric, moist mucus membranes, blind in R eye Neck: supple Lungs: clear to auscultation bilaterally Heart: regular rate and rhythm, no murmurs Abd: soft, non-tender, non-distended Ext: no edema Skin: warm/well-perfused Neuro: alert, unable to assess orientation Psych: impaired insight Objective Data Active Medications Acetaminophen (Acetaminophen 325 Mg Tablet) 650 mg PO Q6H PRN PRN Reason: Pain, Mild (Pain Scale 1-3) Aspirin (Aspirin Enteric Coated 81 Mg Tablet.) 81 mg PO DAILY [facility] Last Admin: 06/04/23 08:37 Dose: 81 mg Documented By: JAY Atorvastatin Calcium (Atorvastatin Calcium 80 Mg Tablet) 80 mg PO BEDTIME [facility] Last Admin: 06/03/23 20:54 Dose: 80 mg Documented By: ROLANDO Albuterol Sulfate 2.5 mg/ (Albuterol/Ipratropium 3 ml) 0 mg INHALE Q4H PRN PRN Reason: Wheezing Dexamethasone (Dexamethasone 6 Mg Tablet) 6 mg PO DAILY [facility] Last Admin: 06/04/23 08:37 Dose: 6 mg Documented By: JAY Dextrose (Dextrose 50 % 25 Gm/50 Ml Syringe) 25 gm IVPUSH Q15M PRN; Protocol PRN Reason: per Hypoglycemia Standing Ord. Divalproex Sodium (Divalproex Sodium 500 Mg Tablet.) 1,000 mg PO BEDTIME [facility] Last Admin: 06/03/23 20:54 Dose: 1,000 mg Documented By: ROLANDO Docusate Sodium (Docusate Sodium 100 Mg Capsule) 200 mg PO BEDTIME [facility] Last Admin: 06/03/23 20:53 Dose: Not Given Documented By: ROLANDO Non-Admin Reason: Patient Refused Enoxaparin Sodium (Enoxaparin Sodium 40 Mg/0.4 Ml Syringe) 40 mg SUBCUT Q24H [facility] Last Admin: 06/04/23 08:36 Dose: 40 mg Documented By: JAY Furosemide (Furosemide 40 Mg Tablet) 40 mg PO DAILY [facility]; Protocol Last Admin: 06/04/23 08:37 Dose: 40 mg Documented By: JAY Glucose (Glucose Gel 15 Gm Gel..Gram.) 15 gm PO Q15M PRN; Protocol PRN Reason: per Hypoglycemia Standing Ord. Remdesivir 100 mg/ Sodium (Chloride) 230 mls @ 115 mls/hr IV Q24H [facility] Stop: 06/06/23 11:59 Last Infusion: 06/04/23 11:07 Dose: Infused Documented By: JAY Insulin Glargine (Insulin Glargine,Hum.Rec.Anlog 100 Unit/Ml 10 Ml Vial) 26 unit SUBCUT BEDTIME [facility] Last Admin: 06/03/23 20:51 Dose: 26 unit Documented By: ROLANDO Insulin Human Lispro (Insulin Lispro 100 Unit/Ml 3 Ml Vial) 0 unit SUBCUT QIDACHS [facility]; Protocol Last Admin: 06/04/23 11:28 Dose: Not Given Documented By: JAY Non-Admin Reason: No Insulin Coverage Magnesium Hydroxide (Milk Of Magnesia 30 Ml Oral.Susp) 30 ml PO DAILY PRN PRN Reason: Constipation Magnesium Oxide (Magnesium Oxide 400 Mg Tablet) 400 mg PO TID [facility] Last Admin: 06/04/23 08:36 Dose: 400 mg Documented By: JAY Melatonin (Melatonin 3 Mg Tablet) 6 mg PO BEDTIME PRN PRN Reason: Insomnia Metformin HCl (Metformin Hcl 1,000 Mg Tablet) 1,000 mg PO BIDWM [facility] Last Admin: 06/04/23 08:37 Dose: 1,000 mg Documented By: JAY Metoprolol Succinate (Metoprolol Succinate Er 25 Mg Tab.Er.24h) 25 mg PO DAILY@1700 [facility]; Protocol Last Admin: 06/03/23 17:44 Dose: 25 mg Documented By: FINESSE Olanzapine (Olanzapine 10 Mg Tablet) 10 mg PO BID [facility] Last Admin: 06/04/23 08:37 Dose: 10 mg Documented By: JAY Ondansetron HCl (Ondansetron Hcl 4 Mg/2 Ml Vial) 4 mg IVPUSH Q8H PRN PRN Reason: Nausea and Vomiting Sodium Chloride (0.9 % Sodium Chloride Flush 3 Ml Syringe) 3 ml IVFLUSH QSHIFT [facility] Last Admin: 06/04/23 08:37 Dose: 3 ml Documented By: JAY Labs 06/04/23 08:44 06/04/23 08:44 Labs: Laboratory Results - last 24 hr 06/03/23 06/03/23 06/04/23 16:07 19:54 07:39 MCV MCH MCHC RDW Plt Count MPV Absolute Nucleated RBC Nucleated RBC % (auto) Anion Gap Estim Creat Clear Calc Estimated GFR POC Glucose 208 H 154 H 102 Random Glucose Calcium C-Reactive Protein 06/04/23 06/04/23 08:44 11:26 MCV 78.2 L MCH 24.3 L MCHC 31.1 RDW 15.7 Plt Count 296 D MPV 11.0 Absolute Nucleated RBC 0.000 Nucleated RBC % (auto) 0.0 Anion Gap 16 Estim Creat Clear Calc 152.1 Estimated GFR > 60 POC Glucose 124 H Random Glucose 101 Calcium 8.7 C-Reactive Protein 2.65 H Assessment and Plan (1) Hypoxia: Status: Acute (2) COVID-19: Status: Acute (3) COPD (chronic obstructive pulmonary disease): Status: Acute (4) Chronic systolic CHF (congestive heart failure): Status: Acute Plan d5 67yo M LTC resident [[facility]] with DM2, HFpEF, HTN, HLD, COPD, schizoaffective disorder admitted for hypoxia due to Covid-19 viral sepsis and acute hypoxic respiratory failure due to Covid-19 infection - wean O2 as tolerated - CRP coming down - dexamethasone 6 mg/d 06/01-06/10/23 - remdesivir 06/01-06/05/23 - isolation precautions chronic HFpEF - continue metoprolol, furosemide DM2 - MTF, basal-bolus insulin schizoaffective disorder - olanzapine, valproate VTE ppx - LMWH dispo - eventual return to LTC In my clinical judgment, the patient requires continued inpatient hospitalization for the following reasons: hypoxia, Covid-19 Time Spent With Patient Time: Total time managing care of this patient today _35___ minutes. Quality Stroke Does the patient have a stroke diagnosis?: No VTE Prior VTE?: No VTE Risk Level:: Medical - moderate - high VTE Device Contraindication: Treatment Not Indicated VTE Drug Contraindication: N/A - Med Ordered
[2023-06-04 15:42] LABS: Glucose, Whole Blood 174 mg/dL (60-115)
[2023-06-04 16:00] VITALS: BP 131/71; PULSE 60; RESP 22; TEMP 35.9; O2SAT 93
[2023-06-04] MEDS: Insulin Lispro 100 UNIT/ML 3 ML VIAL SUBCUT ×2 (17:12→20:25)
[2023-06-04] MEDS: Metoprolol Succinate ER 25 MG TAB.ER.24H PO (17:12)
[2023-06-04 20:00] VITALS: BP 128/67; PULSE 74; RESP 20; TEMP 36.2; O2SAT 94
[2023-06-04] MEDS: Insulin Glargine,Hum.rec.anlog 100 UNIT/ML 10 ML VIAL 26 UNIT SUBCUT (20:26)
[2023-06-04] MEDS: Divalproex Sodium 500 MG TABLET.DR 1000 MG PO (20:29)
[2023-06-04 20:30] LABS: Glucose, Whole Blood 191 mg/dL (60-115)
[2023-06-04] MEDS: Atorvastatin Calcium 80 MG TABLET PO (20:31)
[2023-06-05] VITALS: BP 120/68; PULSE 65; RESP 20; TEMP 35.9; O2SAT 92
[2023-06-05 07:30] VITALS: BP 123/69; PULSE 56; RESP 18; TEMP 36.2; O2SAT 96
[2023-06-05 07:43] LABS: Glucose, Whole Blood 150 mg/dL (60-115)
[2023-06-05] MEDS: metFORMIN HCl 1,000 MG TABLET 1000 MG PO ×2 (08:40→16:26)
[2023-06-05] MEDS: OLANZapine 10 MG TABLET PO ×2 (08:40→21:32)
[2023-06-05] MEDS: dexAMETHasone 6 MG TABLET PO (08:40)
[2023-06-05] MEDS: Furosemide 40 MG TABLET PO (08:40)
[2023-06-05] MEDS: Aspirin Enteric Coated 81 MG TABLET.DR PO (08:40)
[2023-06-05] MEDS: Magnesium Oxide 400 MG TABLET PO ×2 (08:40→14:15)
[2023-06-05] MEDS: Enoxaparin Sodium 40 MG/0.4 ML SYRINGE SUBCUT (08:41)
--- NOTE | 2023-06-05 10:55 | P.PNIM_ITS ---
Subjective Subjective Date of Service: 06/05/23 Interval History: less dyspneic no fever coughing Review of Systems Review of Systems: Yes all other systems are reviewed and are negative Physical Exam 2 Vital Signs: Vital Signs: Last Vital Signs Temp 97.2 F 06/05/23 07:30 Pulse 56 06/05/23 07:30 Resp 18 06/05/23 07:30 BP 123/69 06/05/23 07:30 Pulse Ox 96 06/05/23 07:30 O2 Del Method Nasal Cannula 06/05/23 07:30 O2 Flow Rate 3 06/05/23 07:30 BMI result Body Mass Index 33.2 Gen: in no acute distress HEENT: sclera anicteric, moist mucus membranes, blind in R eye Neck: supple Lungs: clear to auscultation bilaterally Heart: regular rate and rhythm, no murmurs Abd: soft, non-tender, non-distended Ext: no edema Skin: warm/well-perfused Neuro: alert, moving all extremities Psych: normal affect Objective Data Active Medications Acetaminophen (Acetaminophen 325 Mg Tablet) 650 mg PO Q6H PRN PRN Reason: Pain, Mild (Pain Scale 1-3) Aspirin (Aspirin Enteric Coated 81 Mg Tablet.) 81 mg PO DAILY [facility] Last Admin: 06/05/23 08:40 Dose: 81 mg Documented By: THELMA Atorvastatin Calcium (Atorvastatin Calcium 80 Mg Tablet) 80 mg PO BEDTIME [facility] Last Admin: 06/04/23 20:31 Dose: 80 mg Documented By: JAIDEN Albuterol Sulfate 2.5 mg/ (Albuterol/Ipratropium 3 ml) 0 mg INHALE Q4H PRN PRN Reason: Wheezing Dexamethasone (Dexamethasone 6 Mg Tablet) 6 mg PO DAILY [facility] Last Admin: 06/05/23 08:40 Dose: 6 mg Documented By: THELMA Dextrose (Dextrose 50 % 25 Gm/50 Ml Syringe) 25 gm IVPUSH Q15M PRN; Protocol PRN Reason: per Hypoglycemia Standing Ord. Divalproex Sodium (Divalproex Sodium 500 Mg Tablet.) 1,000 mg PO BEDTIME [facility] Last Admin: 06/04/23 20:29 Dose: 1,000 mg Documented By: JAIDEN Docusate Sodium (Docusate Sodium 100 Mg Capsule) 200 mg PO BEDTIME [facility] Last Admin: 06/04/23 20:33 Dose: Not Given Documented By: JAIDEN Non-Admin Reason: Patient Refused Enoxaparin Sodium (Enoxaparin Sodium 40 Mg/0.4 Ml Syringe) 40 mg SUBCUT Q24H [facility] Last Admin: 06/05/23 08:41 Dose: 40 mg Documented By: THELMA Furosemide (Furosemide 40 Mg Tablet) 40 mg PO DAILY [facility]; Protocol Last Admin: 06/05/23 08:40 Dose: 40 mg Documented By: THELMA Glucose (Glucose Gel 15 Gm Gel..Gram.) 15 gm PO Q15M PRN; Protocol PRN Reason: per Hypoglycemia Standing Ord. Remdesivir 100 mg/ Sodium (Chloride) 230 mls @ 115 mls/hr IV Q24H [facility] Stop: 06/06/23 11:59 Last Infusion: 06/04/23 11:07 Dose: Infused Documented By: JAY Insulin Glargine (Insulin Glargine,Hum.Rec.Anlog 100 Unit/Ml 10 Ml Vial) 26 unit SUBCUT BEDTIME [facility] Last Admin: 06/04/23 20:26 Dose: 26 unit Documented By: JAIDEN Insulin Human Lispro (Insulin Lispro 100 Unit/Ml 3 Ml Vial) 0 unit SUBCUT QIDACHS [facility]; Protocol Last Admin: 06/05/23 07:49 Dose: Not Given Documented By: THELMA Non-Admin Reason: No Insulin Coverage Magnesium Hydroxide (Milk Of Magnesia 30 Ml Oral.Susp) 30 ml PO DAILY PRN PRN Reason: Constipation Magnesium Oxide (Magnesium Oxide 400 Mg Tablet) 400 mg PO TID [facility] Last Admin: 06/05/23 08:40 Dose: 400 mg Documented By: THELMA Melatonin (Melatonin 3 Mg Tablet) 6 mg PO BEDTIME PRN PRN Reason: Insomnia Metformin HCl (Metformin Hcl 1,000 Mg Tablet) 1,000 mg PO BIDWM [facility] Last Admin: 06/05/23 08:40 Dose: 1,000 mg Documented By: THELMA Metoprolol Succinate (Metoprolol Succinate Er 25 Mg Tab.Er.24h) 25 mg PO DAILY@1700 [facility]; Protocol Last Admin: 06/04/23 17:12 Dose: 25 mg Documented By: JAY Olanzapine (Olanzapine 10 Mg Tablet) 10 mg PO BID [facility] Last Admin: 06/05/23 08:40 Dose: 10 mg Documented By: THELMA Ondansetron HCl (Ondansetron Hcl 4 Mg/2 Ml Vial) 4 mg IVPUSH Q8H PRN PRN Reason: Nausea and Vomiting Sodium Chloride (0.9 % Sodium Chloride Flush 3 Ml Syringe) 3 ml IVFLUSH QSHIFT [facility] Last Admin: 06/05/23 08:41 Dose: 3 ml Documented By: THELMA Labs 06/04/23 08:44 06/04/23 08:44 Labs: Laboratory Results - last 24 hr 06/04/23 06/04/23 06/04/23 11:26 15:33 20:17 POC Glucose 124 H 174 H 191 H 06/05/23 07:33 POC Glucose 150 H Assessment and Plan (1) Hypoxia: Status: Acute (2) COVID-19: Status: Acute (3) COPD (chronic obstructive pulmonary disease): Status: Acute (4) Chronic systolic CHF (congestive heart failure): Status: Acute Plan d5 67yo M LTC resident [[facility]] with DM2, HFpEF, HTN, HLD, COPD, schizoaffective disorder admitted for hypoxia due to Covid-19 viral sepsis and acute hypoxic respiratory failure due to Covid-19 infection - wean O2 as tolerated - CRP came down - dexamethasone 6 mg/d 06/01-06/10/23 - remdesivir 06/01-06/05/23 - isolation precautions chronic HFpEF - continue metoprolol, furosemide DM2 - MTF, basal-bolus insulin schizoaffective disorder - olanzapine, valproate VTE ppx - LMWH dispo - eventual return to LTC In my clinical judgment, the patient requires continued inpatient hospitalization for the following reasons: hypoxia, Covid-19 Time Spent With Patient Time: Total time managing care of this patient today ___35_ minutes. Quality Stroke Does the patient have a stroke diagnosis?: No VTE Prior VTE?: No VTE Risk Level:: Medical - moderate - high VTE Device Contraindication: Treatment Not Indicated VTE Drug Contraindication: N/A - Med Ordered
[2023-06-05] MEDS: Remdesivir 100 MG in 0.9 % Sodium Chloride 230 ML 115 MG IV (11:11)
[2023-06-05 11:20] LABS: Glucose, Whole Blood 149 mg/dL (60-115)
[2023-06-05 11:51] VITALS: BP 128/77; PULSE 70; RESP 16; TEMP 36.2; O2SAT 92
[2023-06-05 16:00] VITALS: BP 130/71; PULSE 77; RESP 20; TEMP 36.1; O2SAT 90
[2023-06-05 16:02] LABS: Glucose, Whole Blood 183 mg/dL (60-115)
[2023-06-05] MEDS: Metoprolol Succinate ER 25 MG TAB.ER.24H PO (16:26)
[2023-06-05] MEDS: Insulin Lispro 100 UNIT/ML 3 ML VIAL SUBCUT (16:26)
[2023-06-05] MEDS: Divalproex Sodium 500 MG TABLET.DR 1000 MG PO (21:33)
[2023-06-05 21:39] LABS: Glucose, Whole Blood 147 mg/dL (60-115)
[2023-06-05 23:21] VITALS: BP 134/78; PULSE 67; RESP 20; TEMP 36.6; O2SAT 90
--- NOTE | 2023-06-06 03:06 | PC.NURSE ---
CARE ASSUMED 19:15...AWAKE..ALERT...ORIENTED X3 BUT VAGUE RESPONSES AT TIMES AT TIMES..RESPIRATIONS EASY..NO DISTRESS ON ROOM AIR....[place] [employer] REPEATEDLY HAS FALLEN OFF PER REPORT AND AT ASSUMPTION OF CARE...VOIDED 300ml URINE IN URINAL...HS POC= 147...REFUSED HS LANTUS INSULIN..ACCEPTED HS DEPAKOTE AND ZYPREXA BUT REFUSED HS LIPITOR/COLACE/MgSO4 PO...DENIED DISCOMFORT...NAPPING OVERNIGHT
[2023-06-06 03:45] VITALS: BP 143/80; PULSE 67; RESP 18; TEMP 37.1; O2SAT 93
[2023-06-06 07:22] VITALS: BP 156/84; PULSE 83; RESP 20; TEMP 37; O2SAT 92
[2023-06-06 07:23] LABS: Glucose, Whole Blood 165 mg/dL (60-115)
[2023-06-06] MEDS: Enoxaparin Sodium 40 MG/0.4 ML SYRINGE SUBCUT (07:59)
[2023-06-06] MEDS: OLANZapine 10 MG TABLET PO (08:00)
[2023-06-06] MEDS: Insulin Lispro 100 UNIT/ML 3 ML VIAL SUBCUT ×2 (08:00→12:08)
[2023-06-06] MEDS: Magnesium Oxide 400 MG TABLET PO (08:00)
[2023-06-06] MEDS: dexAMETHasone 6 MG TABLET PO (08:00)
[2023-06-06] MEDS: Aspirin Enteric Coated 81 MG TABLET.DR PO (08:00)
[2023-06-06] MEDS: metFORMIN HCl 1,000 MG TABLET 1000 MG PO (08:00)
[2023-06-06] MEDS: Furosemide 40 MG TABLET PO (08:00)
--- NOTE | 2023-06-06 10:53 | PM.DS ---
DS: Providers Provider Date of Service: 06/06/23 Date of admission: 06/01/23 00:10 Date of discharge: 06/06/23 Primary care physician: JASON KELLOGG DS: Diagnosis Discharge Diagnosis (1) Hypoxia: Status: Acute (2) COVID-19: Status: Acute (3) Viral sepsis: Status: Acute DS: Summary Hospital Course Hospital Course: From the history and physical by the admitting hospitalist, Kathy Lebron MD, 06/01/23: This is a 69-year-old male with pertinent history of insulin-dependent diabetes mellitus, congestive heart failure with preserved ejection fraction, essential hypertension, mixed hyperlipidemia, COPD not on home oxygen, mood disorder, substance use disorder who was sent to the emergency department for evaluation of dyspnea and hypoxemia. Unable to obtain history from the patient due to underlying mood disorder. As per the facility, patient is mentating at his baseline. He intermittently responds in with one-word answers. Unable to have a full conversation. Patient was diagnosed with COVID-19 infection 2 days prior to presentation. His breathing worsened over the last 2 days and he was found to be hypoxemic at the nursing facility and hence sent to the ER for further evaluation. Unable to obtain review of systems. In the emergency department, patient requiring 2 L supplemental oxygen. Mr Napoles is a 67yo M LTC resident [[facility]] with DM2, HFpEF, HTN, HLD, COPD, and schizoaffective disorder who was admitted for hypoxia and viral sepsis due to Covid-19. He was treated with dexamethasone and remdesivir with improvement. Oxygen was weaned down to 0.5L via nasal cannula and can be further weaned down as he recovers. He will require 4 more days of PO dexamethasone 6 mg/d. No evidence of bacterial infection. He was discharged back to [facility]. Time Spent with Patient Time attestation: Total time managing care of this patient today ___35_ minutes. Discharge coordination time: Greater than 30 minutes Quality: Safe Use of Opioids Does Pt have an Active Cancer Diagnosis on the Problem List?: No Quality: Stroke Does the patient have a stroke diagnosis?: No Physical Exam Vital Signs: Vital Signs: Last Vital Signs Temp 98.6 F 06/06/23 07:22 Pulse 83 06/06/23 07:22 Resp 20 06/06/23 07:22 BP 156/84 H 06/06/23 07:22 Pulse Ox 92 06/06/23 07:22 O2 Del Method Nasal Cannula 06/06/23 07:22 O2 Flow Rate 1 06/06/23 07:22 BMI result Body Mass Index 33.2 Gen: in no acute distress HEENT: sclera anicteric, moist mucus membranes, blind in R eye Neck: supple Lungs: clear to auscultation bilaterally Heart: regular rate and rhythm, no murmurs Abd: soft, non-tender, non-distended Ext: no edema Skin: warm/well-perfused Neuro: alert, moving all extremities Psych: normal affect DS: Data Data Completed and Pending Completed studies during hospitalization [Text1]: Laboratory Results WBC 11.6 X10*3/uL (4.8-10.8) H 06/04/23 08:44 RBC 4.77 X10*6/uL (4.60-5.80) 06/04/23 08:44 Hgb 11.6 g/dl (14.0-18.0) L 06/04/23 08:44 Hct 37.3 % (42.0-52.0) L 06/04/23 08:44 MCV 78.2 fL (80.0-98.0) L 06/04/23 08:44 MCH 24.3 pg (27.0-33.0) L 06/04/23 08:44 MCHC 31.1 g/dl (31.0-36.0) 06/04/23 08:44 RDW 15.7 % (11.0-16.0) 06/04/23 08:44 Plt Count 296 X10*3/uL (160-400) D 06/04/23 08:44 MPV 11.0 fL (9.4-12.4) 06/04/23 08:44 Immature Gran % (Auto) 0.4 % (0.0-0.4) 06/02/23 07:10 Neut % (Auto) 56.0 % (45-73) 06/02/23 07:10 Lymph % (Auto) 28.9 % (20-40) 06/02/23 07:10 [place] % (Auto) 14.0 % (2-11) H 06/02/23 07:10 Eos % (Auto) 0.2 % (0-4) 06/02/23 07:10 Baso % (Auto) 0.5 % (0-2) 06/02/23 07:10 Lymph # (Auto) 2.4 X10*3/uL (1.2-4.9) 06/02/23 07:10 [place] # (Auto) 1.2 X10*3/uL (0.1-1.2) 06/02/23 07:10 Eos # (Auto) 0.0 X10*3/uL (0.0-0.4) 06/02/23 07:10 Baso # (Auto) 0.0 X10*3/uL (0.0-0.2) 06/02/23 07:10 Abs Immat Gran (auto) 0.03 X10*3/uL (0.00-0.03) 06/02/23 07:10 Absolute Neuts (auto) 4.7 x10*3/uL (2.0-8.3) 06/02/23 07:10 Absolute Nucleated RBC 0.000 X10*3/uL (0.0-0.012) 06/04/23 08:44 Nucleated RBC % (auto) 0.0 /100WBC (0.0-0.2) 06/04/23 08:44 Smear Tech's Comments VERIFIED 05/31/23 22:42 O2 Saturation 96.0 % 05/31/23 23:52 ABG pH at Pt Temp 7.44 (7.35-7.45) 05/31/23 23:52 ABG pCO2 at Pt Temp 38 mmHg (32-45) 05/31/23 23:52 ABG pO2 at Pt Temp 84 mmHg (83-108) 05/31/23 23:52 ABG HCO3 26 mmol/L (22-26) 05/31/23 23:52 ABG Base Excess (Actual) 2.7 mmol/L 05/31/23 23:52 Sodium 142 mmol/L (135-145) 06/04/23 08:44 Potassium 3.5 mmol/L (3.3-5.1) 06/04/23 08:44 Chloride 99 mmol/L (96-108) 06/04/23 08:44 Carbon Dioxide 31 mmol/L (22-29) H 06/04/23 08:44 Anion Gap 16 (12-20) 06/04/23 08:44 BUN 18 mg/dL (9-16) H 06/04/23 08:44 Creatinine 0.57 mg/dL (0.5-1.4) 06/04/23 08:44 Estim Creat Clear Calc 152.1 06/04/23 08:44 Estimated GFR > 60 06/04/23 08:44 POC Glucose 165 mg/dL (60-115) H 06/06/23 07:17 Random Glucose 101 mg/dL (60-115) 06/04/23 08:44 Fasting Glucose 166 mg/dL (60-99) H 06/02/23 07:10 Lactic Acid 1.3 mmol/L (0.5-2.0) 05/31/23 22:42 Calcium 8.7 mg/dL (8.4-10.2) 06/04/23 08:44 Total Bilirubin 0.2 mg/dL (0.0-1.0) 06/02/23 07:10 AST 18 U/L (5-37) 06/02/23 07:10 ALT 10 U/L (0-40) 06/02/23 07:10 Alkaline Phosphatase 56 U/L (39-117) 06/02/23 07:10 C-Reactive Protein 2.65 mg/dL (< or = 0.50) H 06/04/23 08:44 Total Protein 6.8 g/dL (6.5-8.0) 06/02/23 07:10 Albumin 3.1 g/dL (3.5-5.0) L 06/02/23 07:10 Urine Color Dark Yellow 05/31/23 23:11 Urine Appearance Clear 05/31/23 23:11 Urine pH 6.0 (5.0-9.0) 05/31/23 23:11 Ur Specific [place] >= 1.030 (1.005-1.025) H 05/31/23 23:11 Urine Protein 300 (3+) mg/dL (Neg-Trace) H 05/31/23 23:11 Urine Glucose (UA) Negative mg/dL (Negative) 05/31/23 23:11 Urine Ketones 15 mg/dL (Negative) 05/31/23 23:11 Urine Blood Negative (Negative) 05/31/23 23:11 Urine Nitrite Negative (Negative) 05/31/23 23:11 Ur Leukocyte Esterase Negative (Negative) 05/31/23 23:11 Urine RBC 0-2 /HPF (0-2) 05/31/23 23:11 Urine WBC 0-5 /HPF (0-5) 05/31/23 23:11 Ur Squamous Epith Cells 0-2 /HPF (0-2) 05/31/23 23:11 Urine Bacteria None Seen (None Seen) 05/31/23 23:11 Hyaline Casts 0-2 /LPF (0-2) 05/31/23 23:11 COVID-19 (JULIO) Positive (Negative) A 05/31/23 22:41 COVID-19 Clin Com See Note 05/31/23 22:41 Influenza Type A (VIVEK) Negative (Negative) 05/31/23 22:41 Influenza Type B (VIVEK) Negative (Negative) 05/31/23 22:41 Influenza A & B Note See Note 05/31/23 22:41 Impressions Chest X-Ray 05/31/23 22:31 IMPRESSION: Mild cardiomegaly. No acute intrathoracic disease. Discharge Plan Discharge Anticipated Discharge Date/Time: 06/06/23 10:51 Patient Disposition: Xfer LTC Discharge Diagnosis: hypoxia due to Covid-19 infection Referrals: JASON KELLOGG [Primary Care Provider] - 1 Week Discharge Medications: Continued furosemide [Lasix] 40 mg Tablet 40 mg PO DAILY Rx Instructions: HOLD FOR SBP< 100; DBP< 50 atorvastatin 40 mg Tablet 80 mg PO BEDTIME acetaminophen [Tylenol] 325 mg Tablet 650 mg PO Q6H PRN (Reason: PAIN/ FEVER) aspirin [Titus Low Dose Aspirin] 81 mg Tablet,Delayed Release (Dr/Ec) 81 mg PO DAILY magnesium hydroxide [Milk of Magnesia] 400 mg/5 mL Suspension 30 ml PO DAILY PRN (Reason: Constipation) bisacodyl 10 mg Suppository 10 mg [place] DAILY PRN (Reason: Constipation) metformin 1,000 mg Tablet 1,000 mg PO BID docusate sodium [Colace] 100 mg Capsule 200 mg PO BEDTIME bisacodyl 5 mg Tablet,Delayed Release (Dr/Ec) 5 mg PO Q24H PRN (Reason: Constipation) alum-mag hydroxide-simeth 200-200-20 mg/5 mL Suspension 30 ml PO Q6H PRN (Reason: Gastric Reflux) polyethylene glycol 3350 [Miralax] 17 gram/dose Powder 8.5 g PO DAILY Spiriva Respimat 1.25 mcg/actuation Mist 2 puff INHALATION DAILY magnesium oxide 400 mg magnesium Tablet 400 mg PO TID divalproex [Depakote] 500 mg Tablet,Delayed Release (Dr/Ec) 1,000 mg PO BEDTIME Qty: 0 0RF metoprolol succinate 25 mg Tablet Extended Release 24 Hr 25 mg PO DAILY@1700 olanzapine 10 mg tablet 10 mg PO BID Levemir U-100 Insulin 100 unit/mL Solution 38 unit SUBCUT BEDTIME betamethasone dipropionate 0.05 % Cream 1 appl TOPICAL BID Protocol: Apply to: Apply to: TO PSORIASIS PLAQUES ON ELBOWS, LOWER BACK, COCCYX, AND NECK cholecalciferol (vitamin D3) 1,250 mcg (50,000 unit) Tablet 1,250 mcg PO QMONTH Rx Instructions: on the of each month Discharge Orders: Discharge Order (Routine); Ordered 06/06/23 Ordered By: Annie Byrne Diet: Diabetic diet Activity on Discharge: As tolerated Stand Alone Forms: Patient Portal Discharge page Care Plan Goals: recovery from Covid-19 Health Concerns: hypoxia due to Covid-19 infection Plan of Treatment: dexamethasone 6 mg daily for 4 more days isolation per CDC guidelines Please follow up with your primary care doctor within 1 week. Return to the hospital if you experience recurrent or worsening symptoms. Assessment: See Discharge Summary.
--- NOTE | 2023-06-06 11:10 | MHC.CM.PN ---
Pt is medically cleared for D/C back to [facility] today. Transport set up via BLS/Mayra at 12:30pm. This CM called and left message with guardian Andree Ye[employer] technical lead senior developer to inform.
[2023-06-06 11:11] LABS: Glucose, Whole Blood 290 mg/dL (60-115)
[2023-06-06 11:27] VITALS: BP 126/71; PULSE 61; RESP 20; TEMP 36.4; O2SAT 92
[2023-06-06 11:31] VITALS: BP 126/71; PULSE 61; RESP 20; TEMP 36.4; O2SAT 92
== END 2023-06-06 13:26 | DRG 720 ==
LOC: HO.ED 23:25 → HO.EDOVER 06-01 00:14 → HO.S3 06-01 11:57 → HO.EDOVER 06-01 12:13 → HO.IMC 06-01 13:17
PROVIDERS: Hospitalist; Admitting Provider Student in an Organized Health Care Education/Training Program; Emergency Provider Emergency Medicine; PCP Emergency Medicine; Visit Provider Family Medicine
DX: A41.89 Other specified sepsis (principal); J96.01 Acute respiratory failure with hypoxia; U07.1 COVID-19; I11.0 Hypertensive heart disease with heart failure; J44.9 Chronic obstructive pulmonary disease, unspecified; F25.9 Schizoaffective disorder, unspecified; E11.9 Type 2 diabetes mellitus without complications; E78.2 Mixed hyperlipidemia; I50.32 Chronic diastolic (congestive) heart failure; F10.21 Alcohol dependence, in remission; Z79.82 Long term (current) use of aspirin; Z79.4 Long term (current) use of insulin; Z79.84 Long term (current) use of oral hypoglycemic drugs; Z79.899 Other long term (current) drug therapy
CPT/HCPCS: 36415; 71045; 80048; 80053; 81001; 82803; 82947; 83605; 85025; 85027; 86140; 87040; 87502; 87635; 93005; 99285; C1758; J0248; J1100; J1650; J1956; J2359; J8540

== ENCOUNTER → 2023-06-01 00:10 | Outpatient (BNV) | payer MEDICAID, SELFPAY | PROVIDERS: Admitting Provider Student in an Organized Health Care Education/Training Program; Emergency Provider Emergency Medicine; PCP Emergency Medicine; Visit Provider Student in an Organized Health Care Education/Training Program | DX: J96.01 Acute respiratory failure with hypoxia (principal); U07.1 COVID-19; A41.89 Other specified sepsis; B97.89 Other viral agents as the cause of diseases classified elsewhere | CPT/HCPCS: 99222; 99232; 99239; 99499 ==